=== PATIENT | female | born 1995 | race Caucasian/White ===

== ENCOUNTER → 2018-01-10 09:28 | Outpatient (REF) | payer OTHER, SELFPAY | LOC: LAB 09:28 | PROVIDERS: Visit Provider Nurse Practitioner Family | DX: R10.30 Lower abdominal pain, unspecified (principal); R30.0 Dysuria; M54.5 Low back pain; N92.6 Irregular menstruation, unspecified | CPT/HCPCS: 87077; 87086; 87088 ==

== ENCOUNTER 2019-11-29 21:04 | Emergency (ER) | payer OTHER, SELFPAY ==
[2019-11-29 21:06] VITALS: BP 132/75; PULSE 88; RESP 15; TEMP 37.2; O2SAT 99; BMI 29.2
--- NOTE | 2019-11-29 21:19 | CT_ITS ---
PROCEDURE: CT ABDOMEN PELVIS W CON CLINICAL INDICATION: LLQ pain Left lower quadrant pain, cramping COMPARISON: ABDPELWO CT abdomen pelvis wo con from 04/24/2018 TECHNIQUE: IV Contrast: 75ML OPTIRAY 350 Oral Contrast none Axial images obtained with sagittal and coronal reformats. All CT scans at the facility use one or more dose reduction, viz: automated exposure control, ma/kV adjustment per patient size (including targeted exams where dose is matched to indication, i.e. head), or iterative reconstruction technique. FINDINGS: LOWER THORAX: No acute finding ABDOMEN & PELVIS: The liver has an unremarkable appearance. Focal fatty infiltration noted along the falciform ligament region. The spleen, adrenal glands, pancreas, and kidneys have an unremarkable appearance. No renal or ureteral calculi. No intestinal obstruction or free air. There is a small supraumbilical hernia containing fat. No evidence of appendicitis. There is some minimal stranding of the fat lateral to the mid aspect of the descending colon which could be seen with epiploic appendagitis best detected on series 3, image 71. No pelvic mass. Small amount fluid is present in the pelvis. Small bone islands noted in the intertrochanteric region of the left femur. No acute bony findings are evident. IMPRESSION: 1. Focal stranding of the a fat in the left pericolic region of the descending colon suggesting epiploic appendagitis 2. Small supraumbilical hernia containing fat Dictated by: Fahad Capellan MD 11/30/2019 11:28 Electronically signed by Fahad Capellan MD in [place] 11/30/2019 11:28
[2019-11-29 21:35] LABS: Microscopic, Urine URINE MICROSCOPIC (MICROSCOPIC)
[2019-11-29 21:40] LABS: Appearance,Urine CLEAR (Clear); Basophils # 0.1 K/mm3 (0-0.2); Basophils % 1.2 % (0.1-2.0); Bilirubin,Urine Negative (Negative); Blood, Urine Negative (Negative); Color,Urine YELLOW (Yellow); Eosinophils # 0.2 K/mm3 (0.0-0.4); Eosinophils % 2.3 % (0.1-12.0); Glucose,Urine (UA) Negative (Negative); Hematocrit 40.5 % (37.0-47.0); Hemoglobin 13.2 g/dL (12.2-16.2); Ketones,Urine Negative (Negative); Leukocyte Esterase,Urine Negative (Negative); Lymphocytes % 29.1 % (10-50); Mean Corpuscular HGB Conc 32.6 g/dL (31.8-35.4); Mean Corpuscular Hemoglobin 27.9 pg (27.0-31.2); Mean Corpuscular Volume 85.5 fl (81-99); Mean Platelet Volume 7.3 fl (7.4-10.4); Monocytes # 0.4 K/mm3 (0.1-1.0); Monocytes % 5.8 % (1.7-9.3); Neutrophils # 4.3 K/mm3 (1.8-7.8); Neutrophils % 61.6 % (37.0-80.0); Nitrate,Urine Negative (Negative); Platelet Count 326 K/mm3 (142-424); Protein,Urine Negative (Negative); Red Blood Count 4.73 M/mm3 (4.20-5.40); Red Cell Distribution Width 14.9 % (11.5-17.5); Urobilinogen,Urine 0.2 EU/dl (0.2)
[2019-11-29 21:42] LABS: Urine Pregnancy, HCG Qual. Negative (Negative)
[2019-11-29 21:43] LABS: Squamous Epithelial Cell,Urine 20-50 #/hpf (0-5); WBC,Urine Occasional #/hpf (0-3)
[2019-11-29 21:46] LABS: Alanine Aminotransferase 25 U/L (12-78); Albumin Level 4.8 g/dl (3.5-5.0); Albumin/Globulin Ratio 1.3 (1.1-1.8); Alkaline Phosphatase 92 U/L (38-126); Anion Gap 12.6 mEq/L (5-15); Aspartate Amino Transferase 31 U/L (14-36); Bilirubin,Total 0.3 mg/dl (0.2-1.3); Blood Urea Nitrogen 8 mg/dl (7-17); Calcium 9.7 mg/dl (8.4-10.2); Carbon Dioxide 28 mmol/L (22.0-30.0); Chloride 102 mmol/L (98-107); Creatinine Clearance Estimated 118 mL/min (50-200); Estimated Glomerular Filt Rate 90 ml/min (>60); GFR (African American) 109 ML/MIN (>60); Globulin 3.7 g/dL (1.3-3.2); Glucose 86 mg/dl (74-100); Potassium 3.6 mmoL/L (3.5-5.1); Sodium 139 mmol/L (136-145); Total Protein,Serum 8.5 g/dl (6.3-8.2)
[2019-11-29 21:47] LABS: Amylase 92 U/L (30-110); Lipase 86 U/L (23-300)
--- NOTE | 2019-11-29 21:52 | HMH.EDNVD ---
ED Disposition Clinical Impression: Epiploic appendagitis Disposition: Home, Self-Care Condition on Discharge: Good Instructions: DI for Acute Abdomen Additional Instructions: use motrin and see pcp for follow up Referrals: Blair Smalls MD [Primary Care Provider] - - Critical Care Critical Care Time: No Attestation: On 11/29/19, the high probability of a clinically significant, sudden or life threatening deterioration of the following system(s) required my full and direct attention, intervention and personal management. The time I documented below is in addition to time spent performing reported procedures but includes the following listed in this critical care notation. Medical Decision Making - Medical Records Medical records reviewed: Yes: I reviewed the patient's medical records. - Sunny Inquiry Pt receiving controlled substance: No Vital Signs: 11/29/19 21:06 Temperature 98.9 F Temperature Source Oral Pulse Rate [Left Radial] 88 Respiratory Rate 15 Blood Pressure [Right Arm] 132/75 Blood Pressure Mean [Right Arm] 94 Blood Pressure Source [Right Arm] Automatic Cuff Blood Pressure Position [Right Arm] Sitting 02 Sat by Pulse Oximetry 99 Oxygen Delivery Method Room Air - Lab Data Lab results reviewed: Yes: I reviewed the patient's lab results. Lab Results 11/29/19 21:30: Urine Color Yellow, Urine Appearance Clear, Urine pH 6.0, Ur Specific [place] 1.010, Urine Protein Negative, Urine Glucose (UA) Negative, Urine Ketones Negative, Urine Blood Negative, Urine Nitrate Negative, Urine Bilirubin Negative, Urine Urobilinogen 0.2, Ur Leukocyte Esterase Negative, Urine WBC Occasional, Ur Squamous Epith Cells 20-50 11/29/19 21:30: Urine HCG, Qual Negative 11/29/19 21:30: Amylase 92, Lipase 86 11/29/19 21:30: WBC 7.0, RBC 4.73, Hgb 13.2, Hct 40.5, MCV 85.5, MCH 27.9, MCHC 32.6, RDW 14.9, Plt Count 326, MPV 7.3 L, Neut % (Auto) 61.6, Lymph % (Auto) 29.1, [place] % (Auto) 5.8, Eos % (Auto) 2.3, Baso % (Auto) 1.2, Neut # (Auto) 4.3, Lymph # (Auto) 2.0, [place] # (Auto) 0.4, Eos # (Auto) 0.2, Baso # (Auto) 0.1 11/29/19 21:30: Sodium 139, Potassium 3.6, Chloride 102, Carbon Dioxide 28, Anion Gap 12.6, BUN 8, Creatinine 0.80, Estimated Creat Clear 118, Estimated GFR 90, Est GFR ( Amer) 109, Glucose 86, Calcium 9.7, Total Bilirubin 0.3, AST 31, ALT 25, Alkaline Phosphatase 92, Total Protein 8.5 H, Albumin 4.8, Globulin 3.7 H, Albumin/Globulin Ratio 1.3 Result diagrams: 11/29/19 21:30 11/29/19 21:30 Orders (Tests/Meds): ED MEDICATIONS Generic Name Dose Route Start Last Admin Trade Name Freq PRN Reason Stop Dose Admin Sodium Chloride 1,000 mls @ 999 mls/hr 11/29/19 21:30 11/29/19 21:36 Sod Chlor 0.9% 1000ml Bag IV 11/29/19 22:30 999 mls/hr .Q1H1M IVET Administration Discontinued Medications Generic Name Dose Route Start Last Admin Trade Name Freq PRN Reason Stop Dose Admin Ioversol 75 ml 11/29/19 23:39 11/29/19 23:40 Rad-Optiray 350 100ml Vial IV 11/29/19 23:40 75 ml ONCE ONE Administration Protocol Ketorolac Tromethamine 30 mg 11/29/19 21:19 11/29/19 22:02 Toradol 30mg/Ml Vial IV 11/29/19 21:20 30 mg ONCE ONE Administration Morphine Sulfate 4 mg 11/29/19 23:13 11/29/19 23:14 Morphine 4mg/Ml Syringe IV 11/29/19 23:14 4 mg ONCE ONE Administration Ondansetron HCl 4 mg 11/29/19 21:19 11/29/19 22:02 Zofran 4mg/2ml Vial IV 11/29/19 21:20 4 mg ONCE ONE Administration Sodium Chloride 10 ml 11/29/19 23:39 11/29/19 23:40 Rad-Saline Flush 10ml Syringe IV 11/29/19 23:40 10 ml ONCE ONE Administration ORDERS Category Date Time Status CT abdomen pelvis w con Stat Cat Scan 11/29/19 21:19 Taken - CT Data CT Scan: Abdomen, Pelvis Time Received: 00:[address] Reviewed: Yes: I have viewed the radiologist's interpretation Preliminary Findings: Abnormal (see report ) - Reevaluation(s) Time: 00:08 Reevaluation #1: nonspe
[2019-11-30 00:26] VITALS: BP 136/74; PULSE 82; RESP 14; TEMP 37.2; O2SAT 97
== END 2019-11-30 00:29 | disposition home or self-care (01) ==
PROVIDERS: Emergency Provider Emergency Medicine; PCP Emergency Medicine
DX: K52.9 Noninfective gastroenteritis and colitis, unspecified (principal); F17.290 Nicotine dependence, other tobacco product, uncomplicated
CPT/HCPCS: 74177; 80053; 81001; 81025; 82150; 83690; 85025; 96365; 96375; 99283; J2405; Q9967

== ENCOUNTER → 2020-05-18 18:53 | Outpatient (CLI) | payer OTHER, SELFPAY ==
[2020-05-18 19:03] LABS: Basophils # 0.1 K/mm3 (0-0.2); Basophils % 1.1 % (0.1-2.0); Eosinophils # 0.1 K/mm3 (0.0-0.4); Eosinophils % 1.7 % (0.1-12.0); Hematocrit 42.8 % (37.0-47.0); Hemoglobin 13.9 g/dL (12.2-16.2); Lymphocytes % 32.5 % (10-50); Mean Corpuscular HGB Conc 32.5 g/dL (31.8-35.4); Mean Corpuscular Hemoglobin 28.8 pg (27.0-31.2); Mean Corpuscular Volume 88.7 fl (81-99); Mean Platelet Volume 8.2 fl (7.4-10.4); Monocytes # 0.5 K/mm3 (0.1-1.0); Monocytes % 7.6 % (1.7-9.3); Neutrophils # 3.5 K/mm3 (1.8-7.8); Neutrophils % 57.1 % (37.0-80.0); Platelet Count 377 K/mm3 (142-424); Red Blood Count 4.82 M/mm3 (4.20-5.40); Red Cell Distribution Width 13.2 % (11.5-17.5); White Blood Count 6.1 K/mm3 (4.8-10.8)
[2020-05-18 19:10] LABS: Alanine Aminotransferase 22 U/L (12-78); Albumin Level 4.5 g/dl (3.5-5.0); Albumin/Globulin Ratio 1.4 (1.1-1.8); Alkaline Phosphatase 96 U/L (38-126); Anion Gap 14.2 mEq/L (5-15); Aspartate Amino Transferase 29 U/L (14-36); Bilirubin,Total 0.5 mg/dl (0.2-1.3); Blood Urea Nitrogen 9 mg/dl (7-17); Calcium 9.7 mg/dl (8.4-10.2); Carbon Dioxide 24 mmol/L (22.0-30.0); Chloride 104 mmol/L (98-107); Chol/HDL Ratio 4.1 (1-3.5); Cholesterol 223 mg/dl (140-200); Estimated Glomerular Filt Rate 104 ml/min (>60); GFR (African American) 125 ML/MIN (>60); Globulin 3.3 g/dL (1.3-3.2); Glucose 89 mg/dl (74-100); HDL Cholesterol 55 mg/dl (40-60); Potassium 4.2 mmoL/L (3.5-5.1); Sodium 138 mmol/L (136-145); Total Protein,Serum 7.8 g/dl (6.3-8.2); Triglycerides 128 mg/dl (30-150); VLDL Cholesterol 26 mg/dL (0-40)
[2020-05-18 19:21] LABS: Direct LDL Cholesterol 143.31 mg/dL (100-129)
[2020-05-18 19:29] LABS: T4 (Thyroxine) 5.8 ug/dl (5.53-11.0)
[2020-05-18 19:42] LABS: Thyroid Stimulating Hormone 0.89 uIU/mL (0.465-4.68)
== END ==
PROVIDERS: Visit Provider Physician Assistant
DX: F41.9 Anxiety disorder, unspecified (principal)
CPT/HCPCS: 80053; 80061; 84436; 84443; 85025

== ENCOUNTER 2020-08-01 14:42 | Emergency (ER) | payer OTHER, SELFPAY ==
[2020-08-01 15:10] VITALS: BP 131/89; PULSE 89; RESP 19; TEMP 36.6; O2SAT 99; BMI 31.2
--- NOTE | 2020-08-01 15:39 | HMH.EDUTC ---
[facility] [place] Disposition Clinical Impression: Bronchitis Sinusitis Qualifiers: Sinusitis location: unspecified location Chronicity: unspecified Qualified Code(s): J32.9 - Chronic sinusitis, unspecified Disposition: Home, Self-Care Condition on Discharge: Good Instructions: Sinusitis, DI for Sinusitis, Acute Bronchitis Additional Instructions: ? Start antibiotic today. Be sure to complete entire prescription even if feeling better ? Monitor temp. Tylenol every 4 hours as needed and / or ibuprofen every 6 hours as needed ( As long as your primary care physician has told you that it ok to take both. For fever/aches/pains ER if no less than 101 despite Tylenol or Motrin ? Humidifier/vaporizer or hot steamy shower ? Mucinex during the day for your cough and cough suppressant only at night. Be sure to drink lots of water. Insurance may not cover a prescriptions for mucinex. Might be cheaper to get 400mg tablets and take 2 tablet in the morning, mid-day and evening with lots of water. *Start steroid today. Helps with inflammation therefore, cough and wheezing. Follow directions on the package. Reviewed side effects. Patient reports taking them before. Follow up IMMEDIATELY for new or worsening of symptoms OR no noticeable improvement over the next 48-72 hours. 911 immediately for any life threatening symptoms such as chest pain or difficulty breathing Prescriptions: methylPREDNISolone [Medrol 4mg tab] 4 mg PO DIRECTED #21 tab Transmission Status: Pending to [id number] Azithromycin [Z-Lenny 250mg Tab] 250 mg PO DIRECTED #6 tab Transmission Status: Pending to [facility] Referrals: Blair Smalls MD [Primary Care Provider] - As needed Time of Disposition: 15:47 Medical Decision Making - Sunny Inquiry Pt receiving controlled substance: No Sunny was queried for this patient: No Vital Signs: 08/01/20 15:10 Temperature 97.8 F Temperature Source Oral Pulse Rate [Right Brachial] 89 Respiratory Rate 19 Blood Pressure [Right Arm] 131/89 Blood Pressure Mean [Right Arm] 103 Blood Pressure Source [Right Arm] Automatic Cuff Blood Pressure Position [Right Arm] Sitting 02 Sat by Pulse Oximetry 99 Oxygen Delivery Method Room Air - Lab Data Lab results reviewed: Yes: I reviewed the patient's lab results. [facility] [place] HPI - General Stated complaint: sinus pressure,cough,congestion Time Seen by Provider: 08/01/20 15:39 Mode of Arrival: Ambulatory Source of Information: Patient Limitations: No Limitations Description of Symptoms (Recalled from Triage Doc. by RN): PATIENT C/O COUGH, CHEST CONGESTION, BODY ACHES, EAR AND SINUS PRESSURE X 2 DAYS HEENT Symptoms (Recalled from RN notes): Yes Resp Symptoms (Recalled from RN notes): Yes Skin Symptoms (Recalled from RN notes): No MS Symptoms (Recalled from RN notes): No Functional Status (Recalled from RN notes): WNL - History of Present Illness Provider Complaint: Patient state that she has been having sinus pain/pressure and pressure like feeling in her ears states that she feels like it is trying to move into her chest area States that she was tested for COVID over the weekend due to symptoms and test was negative so today after she was still feeling bad she came in to get checked - Related Data Home Medications Medication Instructions Recorded Confirmed Duloxetine HCl [Cymbalta] 60 mg PO DAILY 08/01/20 08/01/20 Previous Rx's Medication Instructions Recorded Azithromycin [Z-Lenny 250mg Tab] 250 mg PO DIRECTED #6 tab 08/01/20 methylPREDNISolone [Medrol 4mg 4 mg PO DIRECTED #21 tab 08/01/20 tab] Allergies Allergy/AdvReac Type Severity Reaction Status Date / Time No Known Allergies Allergy Verified 06/15/20 14:39 - Worker's Comp Is this a Worker's Comp case?: No [facility] History - Hepatitis A Screen Drug use history?: No High risk sexual behaviors?: No History of sexually transmitted infection?: No Currently employed?: N
[2020-08-01 15:49] VITALS: BP 131/89; PULSE 89; RESP 19; TEMP 36.6; O2SAT 99
[2020-08-01 21:14] LABS: UTC Pregnancy Test, Urine Negative (Negative)
== END 2020-08-01 15:50 | disposition home or self-care (01) ==
PROVIDERS: Emergency Provider Nurse Practitioner; PCP Emergency Medicine
DX: J20.9 Acute bronchitis, unspecified (principal); J32.9 Chronic sinusitis, unspecified; F41.8 Other specified anxiety disorders; F17.290 Nicotine dependence, other tobacco product, uncomplicated; Z79.899 Other long term (current) drug therapy
CPT/HCPCS: 81025; 99202; G0463

== ENCOUNTER 2020-08-13 02:08 | Emergency (ER) | payer OTHER, SELFPAY ==
[2020-08-13 02:09] VITALS: BP 138/62; PULSE 101; RESP 18; O2SAT 99; BMI 25.0
--- NOTE | 2020-08-13 02:10 | HMH.EDGENADL ---
ED Disposition Clinical Impression: Hypokalemia, Palpitations, Anxiety Disposition: Home, Self-Care Condition on Discharge: Good Additional Instructions: Take prescribed oral potassium over the next several days. Follow a normal diet. Continue taking fluoxetine as prescribed for anxiety. Please follow-up with your primary care doctor as further testing may be indicated, such as an event monitor, for intermittent palpitations. Return if recurrent palpitations, chest pain, lightheadedness, other new concerning symptoms. Prescriptions: Potassium Chloride 20 meq PO DAILY 3 Days #3 tablet.er Transmission Status: Pending to [id number] Referrals: Blair Smalls MD [Primary Care Provider] - - Critical Care Critical Care Time: No Attestation: On , the high probability of a clinically significant, sudden or life threatening deterioration of the following system(s) required my full and direct attention, intervention and personal management. The time I documented below is in addition to time spent performing reported procedures but includes the following listed in this critical care notation. Medical Decision Making - Medical Records Medical records reviewed: Yes: I reviewed the patient's medical records. - Sunny Inquiry Pt receiving controlled substance: No Vital Signs: 08/13/20 02:09 Pulse Rate [Left Brachial] 101 H Respiratory Rate 18 Blood Pressure [Left Arm] 138/62 Blood Pressure Mean [Left Arm] 87 02 Sat by Pulse Oximetry 99 Oxygen Delivery Method Room Air - Lab Data Lab Results 08/13/20 02:15: Urine HCG, Qual Negative 08/13/20 02:15: Urine Opiates Screen Negative, Urine Methadone Screen Negative, Ur Barbituates Screen Negative, Ur Phencyclidine Scrn Negative, Ur Amphetamines Screen Negative, U Benzodiazepines Scrn Negative, Urine Cocaine Screen Negative, U Marijuana (THC) Screen Negative 08/13/20 02:25: WBC 12.9 H, RBC 4.44, Hgb 13.0, Hct 38.9, MCV 87.7, MCH 29.3, MCHC 33.5, RDW 13.7, Plt Count 373, MPV 7.1 L, Neut % (Auto) 67.5, Lymph % (Auto) 25.8, [place] % (Auto) 4.5, Eos % (Auto) 1.6, Baso % (Auto) 0.7, Neut # (Auto) 8.7 H, Lymph # (Auto) 3.3, [place] # (Auto) 0.6, Eos # (Auto) 0.2, Baso # (Auto) 0.1 08/13/20 02:25: Sodium 136, Potassium 3.1 L, Chloride 103, Carbon Dioxide 24, Anion Gap 12.1, BUN 9, Creatinine 0.70, Estimated Creat Clear 134, Estimated GFR 104, Est GFR ( Amer) 125, Glucose 121 H, Calcium 9.6, Magnesium 1.8, Total Bilirubin 0.4, AST 24, ALT 29, Alkaline Phosphatase 103, Troponin I < 0.01, Total Protein 7.7, Albumin 4.4, Globulin 3.3 H, Albumin/Globulin Ratio 1.3, TSH 2.56 Result diagrams: 08/13/20 02:25 08/13/20 02:25 Orders (Tests/Meds): ED MEDICATIONS Discontinued Medications Generic Name Dose Route Start Last Admin Trade Name Freq PRN Reason Stop Dose Admin Lorazepam 1 mg 08/13/20 02:23 08/13/20 02:50 Lorazepam 1mg Tablet PO 08/13/20 02:24 1 mg ONCE ONE Administration Potassium Chloride 40 meq 08/13/20 03:22 08/13/20 03:23 Potassium Chloride 20meq Tab PO 08/13/20 03:23 40 meq ONCE ONE Administration ORDERS Category Date Time Status Chest XR -- portable [XR chest portable] Stat Exams 08/13/20 02:18 Taken Troponin I Q3H Lab 08/13/20 05:30 Ordered Troponin I Q3H Lab 08/13/20 08:30 Ordered - ECG Data Tracing #1 I reviewed this ECG and interpreted as documented below: EKG demonstrates sinus rhythm at a rate of 82 bpm; no delta wave; no LVH; QTC 453 ms; [place] normal Medical Decision Narrative: Patient 25-year-old female present with palpitations, anxiety. On arrival, hemodynamically stable with heart rate in the 90s. EKG without any dysrhythmia or other acute findings. Bedside ultrasound also demonstrates lung sliding without other acute findings seen with pneumothorax. Chest x-ray currently pending. Other differential diagnoses include anxiety versus anemia versus endocrinopathy versus toxin versus v
--- NOTE | 2020-08-13 02:18 | XR_ITS ---
PROCEDURE: XR CHEST PORTABLE Referring Doctor: Dinesh Murray Patient Age:25Y CLINICAL HISTORY: chest pain. Palpitations smoker Feels like heart being faster every other be short of breath COMPARISON: CT CT ABDOMEN PELVIS W CON from 11/29/2019 FINDINGS: AP portable CXR performed today Less than optimal inspiration in this young patient with diaphragm only down to the anterior 4th rib but this does slightly crowded markings the left base account for appearance here but however I see no convincing acute findings no focal pneumonia. No pulmonary mass nor lesion evident.. No pneumothorax, no pleural effusion. The heart is normal in size, sean and mediastinal structures satisfactory. Chest wall unremarkable .. No acute bony abnormalities. IMPRESSION: No acute findings. Suboptimal inspiration but lungs appear clear, with nothing definitely acute Dictated by: Chau Valenzuela MD 08/13/2020 17:07 Chau Valenzuela MD in [place] 08/13/2020 17:07
--- NOTE | 2020-08-13 02:24 | ECG_ITS ---
APPROVED REPORT Exam: Resting ECG HR:82 bpm ECG Measurements Heart Rate 82 AXES TX 104 P 46 QRSd 74 QRS 51 QT 388 T 35 QTc 453 Conclusion Sinus rhythm with short TX Otherwise normal ECG Electronically signed by : Raymond Canela, 08/15/2020 19:43:14
[2020-08-13 02:46] LABS: Urine Pregnancy, HCG Qual. Negative (Negative)
[2020-08-13 02:47] LABS: Basophils # 0.1 K/mm3 (0-0.2); Basophils % 0.7 % (0.1-2.0); Chloride 103 mmol/L (98-107); Eosinophils # 0.2 K/mm3 (0.0-0.4); Eosinophils % 1.6 % (0.1-12.0); Hematocrit 38.9 % (37.0-47.0); Lymphocytes # 3.3 K/mm3 (0.7-4.5); Lymphocytes % 25.8 % (10-50); Mean Corpuscular HGB Conc 33.5 g/dL (31.8-35.4); Mean Corpuscular Hemoglobin 29.3 pg (27.0-31.2); Mean Corpuscular Volume 87.7 fl (81-99); Mean Platelet Volume 7.1 fl (7.4-10.4); Monocytes # 0.6 K/mm3 (0.1-1.0); Monocytes % 4.5 % (1.7-9.3); Neutrophils # 8.7 K/mm3 (1.8-7.8); Neutrophils % 67.5 % (37.0-80.0); Platelet Count 373 K/mm3 (142-424); Potassium 3.1 mmoL/L (3.5-5.1); Red Blood Count 4.44 M/mm3 (4.20-5.40); Red Cell Distribution Width 13.7 % (11.5-17.5); Sodium 136 mmol/L (136-145); White Blood Count 12.9 K/mm3 (4.8-10.8)
[2020-08-13 02:50] LABS: Alanine Aminotransferase 29 U/L (12-78); Albumin Level 4.4 g/dl (3.5-5.0); Albumin/Globulin Ratio 1.3 (1.1-1.8); Alkaline Phosphatase 103 U/L (38-126); Anion Gap 12.1 mEq/L (5-15); Aspartate Amino Transferase 24 U/L (14-36); Bilirubin,Total 0.4 mg/dl (0.2-1.3); Blood Urea Nitrogen 9 mg/dl (7-17); Calcium 9.6 mg/dl (8.4-10.2); Carbon Dioxide 24 mmol/L (22.0-30.0); Creatinine Clearance Estimated 134 mL/min (50-200); Estimated Glomerular Filt Rate 104 ml/min (>60); GFR (African American) 125 ML/MIN (>60); Globulin 3.3 g/dL (1.3-3.2); Glucose 121 mg/dl (74-100); Magnesium 1.8 mg/dl (1.6-2.3); Total Protein,Serum 7.7 g/dl (6.3-8.2)
[2020-08-13 02:52] LABS: Amphetamine/Metha Screen,Urine Negative ng/ml (<1000); Barbiturates Screen,Urine Negative ng/ml (<200)
[2020-08-13 02:53] LABS: Benzodiazepines Screen,Urine Negative ng/ml (<200); Cannabinoid Screen,Urine Negative ng/ml (<50)
[2020-08-13 02:54] LABS: Cocaine Screen,Urine Negative ng/ml (<300)
[2020-08-13 02:55] LABS: Methadone Screen,Urine Negative ng/ml (<300); Opiate Screen,Urine Negative ng/ml (<300)
[2020-08-13 02:56] LABS: Phencyclidine Screen,Urine Negative ng/ml (<25)
[2020-08-13 03:17] LABS: Troponin I < 0.01 ng/ml (0.00-0.034)
[2020-08-13 03:23] LABS: Thyroid Stimulating Hormone 2.56 uIU/mL (0.465-4.68)
[2020-08-13 03:39] VITALS: BP 111/77; PULSE 87; RESP 16; TEMP 37.1; O2SAT 98
== END 2020-08-13 03:41 | disposition home or self-care (01) ==
PROVIDERS: Emergency Provider Emergency Medicine; PCP Emergency Medicine
DX: F41.9 Anxiety disorder, unspecified (principal); R00.2 Palpitations; E87.6 Hypokalemia; F17.290 Nicotine dependence, other tobacco product, uncomplicated; Z79.899 Other long term (current) drug therapy
CPT/HCPCS: 71045; 80053; 80305; 81025; 83735; 84443; 84484; 85025; 93005; 99283

== ENCOUNTER 2020-11-12 14:54 | Emergency (ER) | payer OTHER, SELFPAY ==
[2020-11-12 14:55] VITALS: BP 123/72; PULSE 98; RESP 18; TEMP 36.9; O2SAT 99; BMI 31.6
--- NOTE | 2020-11-12 15:11 | HMH.EDGENADL ---
ED Disposition Clinical Impression: Asymptomatic bacteriuria, Nausea and vomiting during Disposition: Home, Self-Care Condition on Discharge: Good Instructions: DI for Hyperemesis Gravidarum, DI for Acute Cystitis Additional Instructions: You have been evaluated for nausea and vomiting in . Found to have bacteria in your urine. Please take Macrobid as prescribed. Take Zofran as needed for nausea. Stay hydrated. Follow-up with your [employer] in 2 to 3 days for symptom recheck. Return to the emergency department at once if you have any new or worsening symptoms, vomiting, contractions, other concerns. Prescriptions: nitrofurantoin macrocrystaL [Macrodantin 100mg capsule] 100 mg PO BID #10 cap Transmission Status: Pending to [facility] Referrals: Shaista Silva PA [Primary Care Provider] - Time of Disposition: 15:41 - Critical Care Critical Care Time: No Attestation: On , the high probability of a clinically significant, sudden or life threatening deterioration of the following system(s) required my full and direct attention, intervention and personal management. The time I documented below is in addition to time spent performing reported procedures but includes the following listed in this critical care notation. Medical Decision Making - Medical Records Medical records reviewed: Yes: I reviewed the patient's medical records. - Sunny Inquiry Pt receiving controlled substance: No Vital Signs: 11/12/20 14:55 11/12/20 15:30 Temperature 98.5 F Temperature Source Oral Pulse Rate 88 Pulse Rate [Left Radial] 98 H Respiratory Rate 18 Blood Pressure 118/74 Blood Pressure [Right Arm] 123/72 Blood Pressure Mean 86 Blood Pressure Mean [Right Arm] 89 Blood Pressure Source [Right Arm] Automatic Cuff Blood Pressure Position [Right Arm] Sitting 02 Sat by Pulse Oximetry 99 99 Oxygen Delivery Method Room Air - Lab Data Lab Results 11/12/20 15:07: Urine Color Yellow, Urine Appearance Sl cloudy, Urine pH 8.0, Ur Specific [place] 1.020, Urine Protein Negative, Urine Glucose (UA) Negative, Urine Ketones Negative, Urine Blood Negative, Urine Nitrate Negative, Urine Bilirubin Negative, Urine Urobilinogen 1.0, Ur Leukocyte Esterase 1+ A, Urine RBC None, Urine WBC 5-10, Ur Squamous Epith Cells 10-20, Amorphous Sediment 3+, Urine Bacteria None 11/12/20 15:15: WBC 9.0, RBC 4.12 L, Hgb 12.4, Hct 36.2 L, MCV 87.9, MCH 30.1, MCHC 34.2, RDW 13.4, Plt Count 262, MPV 7.4, Neut % (Auto) 76.7, Lymph % (Auto) 15.0, [place] % (Auto) 7.0, Eos % (Auto) 0.8, Baso % (Auto) 0.5, Neut # (Auto) 6.9, Lymph # (Auto) 1.4, [place] # (Auto) 0.6, Eos # (Auto) 0.1, Baso # (Auto) 0.0 11/12/20 15:15: Sodium 136, Potassium 3.5, Chloride 105, Carbon Dioxide 23, Anion Gap 11.5, BUN 4 L, Creatinine 0.50 L, Estimated Creat Clear 203, Estimated GFR 153, Est GFR ( Amer) 185, Total Bilirubin 0.3, AST 27, ALT 22, Alkaline Phosphatase 67, Total Protein 7.0, Albumin 3.9, Globulin 3.1, Albumin/Globulin Ratio 1.3 Result diagrams: 11/12/20 15:15 11/12/20 15:15 Orders (Tests/Meds): ED MEDICATIONS Generic Name Dose Route Start Last Admin Trade Name Freq PRN Reason Stop Dose Admin Sodium Chloride 1,000 mls @ 999 mls/hr 11/12/20 15:30 11/12/20 15:29 Sod Chlor 0.9% 1000ml Bag IV 11/12/20 16:30 999 mls/hr .Q1H1M IVET Administration Discontinued Medications Generic Name Dose Route Start Last Admin Trade Name Freq PRN Reason Stop Dose Admin Sodium Chloride 1,000 mls @ 999 mls/hr 11/12/20 15:15 Sod Chlor 0.9% 1000ml Bag IV 11/12/20 16:15 .Q1H1M IVET Ondansetron HCl 4 mg 11/12/20 15:28 11/12/20 15:29 Ondansetron 4mg/2ml Vial IV 11/12/20 15:29 4 mg ONCE ONE Administration ORDERS Category Date Time Status CMP [Comprehensive Metabolic Panel] Stat Lab 11/12/20 15:15 Results Urine Culture Stat Micro 11/12/20 15:07 Received Medical Decision Narrative: In summary this i
[2020-11-12 15:12] LABS: Microscopic, Urine URINE MICROSCOPIC (MICROSCOPIC)
[2020-11-12 15:14] LABS: Appearance,Urine SL CLOUDY (Clear); Bilirubin,Urine Negative (Negative); Blood, Urine Negative (Negative); Color,Urine YELLOW (Yellow); Glucose,Urine (UA) Negative (Negative); Ketones,Urine Negative (Negative); Leukocyte Esterase,Urine 1+ (Negative); Nitrate,Urine Negative (Negative); Protein,Urine Negative (Negative)
[2020-11-12 15:23] LABS: Amorphous Sediment,Urine 3+ /lpf
[2020-11-12 15:30] VITALS: BP 118/74; PULSE 88; O2SAT 99
[2020-11-12 15:33] LABS: Basophils % 0.5 % (0.1-2.0); Eosinophils # 0.1 K/mm3 (0.0-0.4); Eosinophils % 0.8 % (0.1-12.0); Hematocrit 36.2 % (37.0-47.0); Hemoglobin 12.4 g/dL (12.2-16.2); Lymphocytes # 1.4 K/mm3 (0.7-4.5); Mean Corpuscular HGB Conc 34.2 g/dL (31.8-35.4); Mean Corpuscular Hemoglobin 30.1 pg (27.0-31.2); Mean Corpuscular Volume 87.9 fl (81-99); Mean Platelet Volume 7.4 fl (7.4-10.4); Monocytes # 0.6 K/mm3 (0.1-1.0); Neutrophils # 6.9 K/mm3 (1.8-7.8); Neutrophils % 76.7 % (37.0-80.0); Platelet Count 262 K/mm3 (142-424); Red Blood Count 4.12 M/mm3 (4.20-5.40); Red Cell Distribution Width 13.4 % (11.5-17.5)
[2020-11-12 15:37] LABS: Chloride 105 mmol/L (98-107); Potassium 3.5 mmoL/L (3.5-5.1); Sodium 136 mmol/L (136-145)
[2020-11-12 15:39] LABS: Blood Urea Nitrogen 4 mg/dl (7-17); Creatinine Clearance Estimated 203 mL/min (50-200); Estimated Glomerular Filt Rate 153 ml/min (>60); GFR (African American) 185 ML/MIN (>60)
[2020-11-12 15:40] LABS: Alanine Aminotransferase 22 U/L (12-78); Albumin Level 3.9 g/dl (3.5-5.0); Albumin/Globulin Ratio 1.3 (1.1-1.8); Alkaline Phosphatase 67 U/L (38-126); Anion Gap 11.5 mEq/L (5-15); Aspartate Amino Transferase 27 U/L (14-36); Bilirubin,Total 0.3 mg/dl (0.2-1.3); Calcium 8.7 mg/dl (8.4-10.2); Carbon Dioxide 23 mmol/L (22.0-30.0); Globulin 3.1 g/dL (1.3-3.2); Glucose 94 mg/dl (74-100)
[2020-11-12 16:48] VITALS: BP 117/66; PULSE 85; RESP 20; TEMP 36.9; O2SAT 99
== END 2020-11-12 16:52 | disposition home or self-care (01) ==
PROVIDERS: Emergency Provider Emergency Medicine; PCP Physician Assistant
DX: O21.9 Vomiting of pregnancy, unspecified (principal); Z3A.13 13 weeks gestation of pregnancy; R82.71 Bacteriuria
CPT/HCPCS: 80053; 81001; 85025; 87086; 96365; 96375; 99282; J2405

== ENCOUNTER 2020-12-20 09:45 | Emergency (ER) | payer OTHER, SELFPAY ==
[2020-12-20 09:47] VITALS: BP 121/74; PULSE 80; RESP 18; TEMP 36.5; O2SAT 99; BMI 31.2
--- NOTE | 2020-12-20 10:05 | HMH.EDGENADL ---
ED Disposition Clinical Impression: 19 weeks gestation of Low back pain Qualifiers: Chronicity: acute Back pain laterality: midline Sciatica presence: without sciatica Qualified Code(s): M54.5 - Low back pain Disposition: Home, Self-Care Condition on Discharge: Good Instructions: DI for Low Back Pain Additional Instructions: Tylenol for pain. Follow-up with your [employer] tomorrow as scheduled. Return the emergency department if severe pain valle new symptoms such as fever, vomiting, or vaginal bleeding. Referrals: Blair Smalls MD [Primary Care Provider] - Forms: Work/School Release - Critical Care Critical Care Time: No Attestation: On 12/20/20, the high probability of a clinically significant, sudden or life threatening deterioration of the following system(s) required my full and direct attention, intervention and personal management. The time I documented below is in addition to time spent performing reported procedures but includes the following listed in this critical care notation. Medical Decision Making - Sunny Inquiry Pt receiving controlled substance: No Vital Signs: 12/20/20 09:47 Temperature 97.7 F Temperature Source Oral Pulse Rate [Right Radial] 80 Respiratory Rate 18 Blood Pressure [Right Arm] 121/74 Blood Pressure Mean [Right Arm] 89 Blood Pressure Source [Right Arm] Automatic Cuff Blood Pressure Position [Right Arm] Sitting 02 Sat by Pulse Oximetry 99 Oxygen Delivery Method Room Air - Lab Data Lab Results 12/20/20 10:06: Urine Color Yellow, Urine Appearance Clear, Urine pH 7.0, Ur Specific [place] 1.020, Urine Protein Negative, Urine Glucose (UA) Negative, Urine Ketones Negative, Urine Blood Negative, Urine Nitrate Negative, Urine Bilirubin Negative, Urine Urobilinogen 0.2, Ur Leukocyte Esterase Negative, Urine RBC 5-10, Urine WBC None, Ur Squamous Epith Cells 3-5, Urine Bacteria None Medical Decision Narrative: Urine analysis is unremarkable. Symptomatically, back pain suggests musculoskeletal origin. I also offered vaginal examination to check her cervix to make sure she was not dilating and that the back pain did not represent early labor. She declines. Labor and delivery was contacted by nursing staff and they declined to evaluate patient as she is less than 20 weeks. The patient says she has an appointment with her [employer] tomorrow and will follow up then. Advised to return to the emergency department if worsening pain or if any vaginal bleeding or other new symptoms. General Adult HPI - General Stated complaint: back pain, abd pain Time Seen by Provider: 12/20/20 10:05 - History of Present Illness HPI narrative: 19 weeks gestation . 2 para 1. 2-day history of lower back pain coming around to her anterior abdomen. Constant but will worsen for a few hours at a time. No injury recalled. Pain is worsened by bending forward and walking. She says it does not feel like contractions. Her abdominal pain does not feel like contractions. No vaginal bleeding. She is concerned about possibility of a urinary tract infection. Denies dysuria, frequency, fever, vomiting. - Related Data Previous Rx's Medication Instructions Recorded lurasidone 20 mg tablet 20 mg PO DAILY #30 tab 11/14/20 pseudoephedrine HCl 120 mg 120 mg PO Q12H #20 tab 11/14/20 tablet,extended release valacyclovir 1 gram tablet 1,000 mg PO BID #20 tab 12/13/20 Allergies Allergy/AdvReac Type Severity Reaction Status Date / Time No Known Allergies Allergy Verified 11/14/20 14:29 [facility] History - Hepatitis A Screen Attestation statement:: This patient has been screened for Hepatitis A risk factors. I have reviewed the patient's past medical history: Yes Medical History: Reports:: Anxiety, Depression Laterality Cases: Bilateral: Myringotomy (Ear Tubes), Tonsillectomy Other Surgeries: Yes: No Previous Surgery, Amputation: No Fractures: No
[2020-12-20 10:13] LABS: Microscopic, Urine URINE MICROSCOPIC (MICROSCOPIC)
[2020-12-20 10:17] LABS: Appearance,Urine CLEAR (Clear); Bilirubin,Urine Negative (Negative); Blood, Urine Negative (Negative); Color,Urine YELLOW (Yellow); Glucose,Urine (UA) Negative (Negative); Ketones,Urine Negative (Negative); Leukocyte Esterase,Urine Negative (Negative); Nitrate,Urine Negative (Negative); Protein,Urine Negative (Negative); Urobilinogen,Urine 0.2 EU/dl (0.2)
[2020-12-20 11:00] VITALS: BP 124/72; PULSE 74; RESP 18; TEMP 36.6; O2SAT 98
== END 2020-12-20 11:02 | disposition home or self-care (01) ==
PROVIDERS: Emergency Provider Emergency Medicine; PCP Emergency Medicine
DX: M54.5 Low back pain (principal); Z3A.19 19 weeks gestation of pregnancy; F41.8 Other specified anxiety disorders; F17.290 Nicotine dependence, other tobacco product, uncomplicated
CPT/HCPCS: 81001; 99282

== ENCOUNTER 2021-01-10 17:27 | Emergency (ER) | payer OTHER, SELFPAY ==
--- NOTE | 2021-01-10 17:50 | HMH.EDUTC ---
[facility] [place] Clinical Impression: UTI (urinary tract infection) Qualifiers: Urinary tract infection type: site unspecified Hematuria presence: without hematuria Qualified Code(s): N39.0 - Urinary tract infection, site not specified Qualifiers: Weeks of gestation: 22 weeks Qualified Code(s): Z3A.22 - 22 weeks gestation of Disposition: Home, Self-Care Condition on Discharge: Good Instructions: Urinary Tract Infection Additional Instructions: Drink plenty of fluids. Take tylenol for pain or fever. Take the medications as directed. Follow up with your regular doctor. Follow up with your customer care consultant doctor. Please call them and let them know you are being treated for a UTI. GO TO THE ER FOR ANY WORSENING SYMPTOMS Prescriptions: cephALEXin [cephALEXin 500mg capsule] 500 mg PO Q6H 7 Days #28 cap Transmission Status: Received by [facility] Referrals: Blair Smalls MD [Primary Care Provider] - Forms: Work/School Release Time of Disposition: 17:55 Medical Decision Making - Medical Records Medical records reviewed: No: I reviewed the patient's medical records. - Sunny Inquiry Pt receiving controlled substance: No Vital Signs: 01/10/21 17:51 01/10/21 17:56 Temperature 98.3 F 98.3 F Temperature Source Oral Pulse Rate 82 Pulse Rate [Left] 82 Respiratory Rate 17 17 Blood Pressure 120/66 Blood Pressure [Right Arm] 120/66 Blood Pressure Mean [Right Arm] 84 02 Sat by Pulse Oximetry 98 - Lab Data Lab Results 01/10/21 17:55: Urine Color [place], Urine Appearance Slightly cloudy, Urine pH 7.0, Ur Specific [place] 1.020, Urine Protein 2+, Urine Glucose (UA) Negative, Urine Ketones Small, Urine Blood Negative, Urine Nitrate Negative, Urine Bilirubin 1+ A, Urine Urobilinogen 1, Ur Leukocyte Esterase Trace Orders (Tests/Meds): ORDERS Category Date Time Status Urine Culture Stat Micro 01/10/21 17:37 Received [facility] [place] - General Stated complaint: Possible UTI Time Seen by Provider: 01/10/21 17:50 - History of Present Illness Provider Complaint: She states that for the past 1 day she has had burning while urination. She gets uti's every so often and she thinks that is what's going on now. She is 22 weeks . She denies any vaginal bleeding, discharge or abdominal pain. - Related Data Previous Rx's Medication Instructions Recorded lurasidone 20 mg tablet 20 mg PO DAILY #30 tab 11/14/20 pseudoephedrine HCl 120 mg 120 mg PO Q12H #20 tab 11/14/20 tablet,extended release valacyclovir 1 gram tablet 1,000 mg PO BID #20 tab 12/13/20 sertraline 25 mg tablet 25 mg PO DAILY #30 tab 01/05/21 cephALEXin [cephALEXin 500mg 500 mg PO Q6H 7 Days #28 cap 01/10/21 capsule] Allergies Allergy/AdvReac Type Severity Reaction Status Date / Time No Known Allergies Allergy Verified 01/10/21 17:55 [facility] History - Hepatitis A Screen Attestation statement:: This patient has been screened for Hepatitis A risk factors. I have reviewed the patient's past medical history: Yes Medical History: Reports:: Anxiety, Depression Laterality Cases: Bilateral: Myringotomy (Ear Tubes), Tonsillectomy Other Surgeries: Yes: No Previous Surgery, Amputation: No Fractures: No - Social History Smoking Status: Light tobacco smoker Tobacco Type: e-cigarettes # Packs/Day (cigarettes): 1 Alcohol Intake: never Substance Use Type: denies use Occupational Status: employed Housing: house Household Members: family - Psychiatric History Pschychiatric History:: Reports:: Anxiety, Depression Family Hx:: No significant family history ROS Obtained: Yes All systems reviewed & no additional complaints - Constitutional Constitutional: Reports system reviewed and no additional complaints, except as docu - Eyes Eyes: Reports system reviewed and no additional complaints, except as docu - ENT Ears, Nose, Mouth, and Throat: Reports system reviewed and
[2021-01-10 17:51] VITALS: BP 120/66; PULSE 82; RESP 17; TEMP 36.8; O2SAT 98; BMI 28.8
[2021-01-10 17:56] VITALS: BP 120/66; PULSE 82; RESP 17; TEMP 36.8; O2SAT 98
[2021-01-10 18:35] LABS: Apearance,Urine Slightly Cloudy (Clear); Color,Urine Orange (Yellow)
[2021-01-10 18:36] LABS: Glucose,Urine (UA) Negative (Negative); Ketones,Urine SMALL (Negative); Protein,Urine 2+ (Negative)
[2021-01-10 18:37] LABS: Bilirubin,Urine 1+ (Negative); Blood, Urine Negative (Negative); UTC Leukocyte Esterase,Urine Trace (Negative); UTC Nitrate,Urine Negative (Negative); Urobilinogen,Urine 1 EU/dl (0.2)
== END 2021-01-10 18:07 | disposition home or self-care (01) ==
PROVIDERS: Emergency Provider Nurse Practitioner Family; PCP Emergency Medicine
DX: O23.12 Infections of bladder in pregnancy, second trimester (principal); N30.00 Acute cystitis without hematuria; Z3A.22 22 weeks gestation of pregnancy; F41.8 Other specified anxiety disorders; Z79.899 Other long term (current) drug therapy; F17.290 Nicotine dependence, other tobacco product, uncomplicated
CPT/HCPCS: 81003; 87086; 99202; G0463

== ENCOUNTER 2021-01-16 17:21 | Emergency (ER) | payer OTHER, SELFPAY ==
[2021-01-16 17:25] VITALS: BP 111/69; PULSE 91; RESP 17; TEMP 36.9; O2SAT 97; BMI 32.0
[2021-01-16 17:36] LABS: Apearance,Urine Clear (Clear); Color,Urine Yellow (Yellow); Glucose,Urine (UA) Negative (Negative); Ketones,Urine Negative (Negative); PH,Urine 6.5 (5.0-8.5); Protein,Urine Trace (Negative)
[2021-01-16 17:37] LABS: Bilirubin,Urine Negative (Negative); Blood, Urine Negative (Negative); UTC Leukocyte Esterase,Urine Negative (Negative); UTC Nitrate,Urine Negative (Negative); Urobilinogen,Urine 1 EU/dl (0.2)
--- NOTE | 2021-01-16 17:50 | HMH.EDUTC ---
[facility] [place]: Burning with urination Disposition: Home, Self-Care Condition on Discharge: Good Additional Instructions: Make sure to drink plenty of water to help flush out kidneys Finish medication as prescribed Follow up with OBGYN and/or Family Doctor if symptoms continue or worsen Return if needed Straight to ER if any life threatening symptoms Referrals: Blair Smalls MD [Primary Care Provider] - As needed Time of Disposition: 17:55 Medical Decision Making - Sunny Inquiry Pt receiving controlled substance: No Sunny was queried for this patient: No Vital Signs: 01/16/21 17:25 Temperature 98.4 F Temperature Source Oral Pulse Rate [Right Brachial] 91 H Respiratory Rate 17 Blood Pressure [Right Arm] 111/69 Blood Pressure Mean [Right Arm] 83 Blood Pressure Source [Right Arm] Automatic Cuff Blood Pressure Position [Right Arm] Sitting 02 Sat by Pulse Oximetry 97 Oxygen Delivery Method Room Air - Lab Data Lab results reviewed: Yes: I reviewed the patient's lab results. Lab Results 01/16/21 17:24: Urine Color Yellow, Urine Appearance Clear, Urine pH 6.5, Ur Specific [place] 1.030, Urine Protein Trace, Urine Glucose (UA) Negative, Urine Ketones Negative, Urine Blood Negative, Urine Nitrate Negative, Urine Bilirubin Negative, Urine Urobilinogen 1, Ur Leukocyte Esterase Negative [facility] [place] - General Stated complaint: Possible UTI Time Seen by Provider: 01/16/21 17:50 Mode of Arrival: Ambulatory Source of Information: Patient Limitations: No Limitations Description of Symptoms (Recalled from Triage Doc. by RN): PATIENT STATES SHE SEEN IN [facility] LAST SATURDAY AND TREATED FOR UTI; REPORTS HER SYMPTOMS HAVE NOT CLEARED UP HEENT Symptoms (Recalled from RN notes): No Resp Symptoms (Recalled from RN notes): No Skin Symptoms (Recalled from RN notes): No MS Symptoms (Recalled from RN notes): No Functional Status (Recalled from RN notes): WNL - History of Present Illness Provider Complaint: Patient states that she is and has been having burning on and off with urination States that she was seen last week and started on antibiotics States that she finishes them up tomorrow and her culture showed contamination and she was still having some burning on and off but denies discharge and wanted to get urine checked again - Related Data Previous Rx's Medication Instructions Recorded lurasidone 20 mg tablet 20 mg PO DAILY #30 tab 11/14/20 pseudoephedrine HCl 120 mg 120 mg PO Q12H #20 tab 11/14/20 tablet,extended release valacyclovir 1 gram tablet 1,000 mg PO BID #20 tab 12/13/20 sertraline 25 mg tablet 25 mg PO DAILY #30 tab 01/05/21 cephALEXin [cephALEXin 500mg 500 mg PO Q6H 7 Days #28 cap 01/10/21 capsule] Allergies Allergy/AdvReac Type Severity Reaction Status Date / Time No Known Allergies Allergy Verified 01/10/21 17:55 - Worker's Comp Is this a Worker's Comp case?: No [facility] History - Hepatitis A Screen Drug use history?: No High risk sexual behaviors?: No History of sexually transmitted infection?: No Currently employed?: No Childcare worker?: No Do you have indoor plumbing?: Yes Do you have electricity?: Yes Attestation statement:: This patient has been screened for Hepatitis A risk factors. I have reviewed the patient's past medical history: Yes Medical History: Reports:: Anxiety, Depression Laterality Cases: Bilateral: Myringotomy (Ear Tubes), Tonsillectomy Other Surgeries: Yes: No Previous Surgery, Amputation: No Fractures: No - Social History Smoking Status: Never smoker Tobacco Type: e-cigarettes # Packs/Day (cigarettes): 1 Alcohol Intake: never Substance Use Type: denies use Occupational Status: other Housing: house Household Members: family - Psychiatric History Pschychiatric History:: Reports:: Anxiety, Depression Family Hx:: No significant family history ROS Obtained: Yes All systems reviewed & no additional complaints
[2021-01-16 17:58] VITALS: BP 111/69; PULSE 91; RESP 17; TEMP 36.9; O2SAT 97
== END 2021-01-16 18:05 | disposition home or self-care (01) ==
PROVIDERS: Emergency Provider Nurse Practitioner; PCP Emergency Medicine
DX: O23.12 Infections of bladder in pregnancy, second trimester (principal); F41.8 Other specified anxiety disorders
CPT/HCPCS: 81003; 99202; G0463

== ENCOUNTER 2021-02-17 09:29 | Emergency (ER) | payer OTHER, SELFPAY ==
[2021-02-17 09:52] VITALS: BP 120/69; PULSE 91; RESP 20; TEMP 36.9; O2SAT 98; BMI 32.8
--- NOTE | 2021-02-17 10:00 | HMH.EDUTC ---
[facility] [place] Clinical Impression: Low back pain Qualifiers: Chronicity: unspecified Back pain laterality: unspecified Sciatica presence: unspecified whether sciatica present Qualified Code(s): M54.5 - Low back pain Disposition: Home, Self-Care Condition on Discharge: Good Additional Instructions: After leaving the [facility] go to the hotel front office manager to re-register for OB out Go to OB for monitoring Return if needed Straight to ER if any life threatening symptoms Referrals: Blair Smalls MD [Primary Care Provider] - As needed Time of Disposition: 10:12 Medical Decision Making - Sunny Inquiry Pt receiving controlled substance: No Sunny was queried for this patient: No Vital Signs: 02/17/21 09:52 02/17/21 10:16 Temperature 98.4 F 98.4 F Temperature Source Oral Pulse Rate 91 H Pulse Rate [Right Radial] 91 H Respiratory Rate 20 20 Blood Pressure 120/69 Blood Pressure [Right Arm] 120/69 Blood Pressure Mean [Right Arm] 86 Blood Pressure Source [Right Arm] Automatic Cuff Blood Pressure Position [Right Arm] Sitting 02 Sat by Pulse Oximetry 98 Oxygen Delivery Method Room Air - Lab Data Lab results reviewed: Yes: I reviewed the patient's lab results. Lab Results 02/17/21 09:32: Urine Color Yellow, Urine Appearance Clear, Urine pH 6.5, Ur Specific [place] 1.010, Urine Protein Negative, Urine Glucose (UA) Negative, Urine Ketones Negative, Urine Blood Trace, Urine Nitrate Negative, Urine Bilirubin Negative, Urine Urobilinogen 0.2, Ur Leukocyte Esterase Negative Medical Decision Narrative: Spoke with OB and urine clear patient to be sent to floor for evaluation and monitoring Advised patient to be discharged from [facility] and re-register for OB out patient agreed [facility] [place] - General Stated complaint: possible uti Time Seen by Provider: 02/17/21 10:01 Mode of Arrival: Ambulatory Limitations: No Limitations Description of Symptoms (Recalled from Triage Doc. by RN): C/O possible UTI-- frequent urination and lower back pain, sinus pressure HEENT Symptoms (Recalled from RN notes): Yes (Sinus pressure) Resp Symptoms (Recalled from RN notes): No Skin Symptoms (Recalled from RN notes): No MS Symptoms (Recalled from RN notes): No Functional Status (Recalled from RN notes): n/a - History of Present Illness Provider Complaint: Patient states that she woke up this morning with some nasal congestion and took some Zyrtec States thats he is 27wks OB and she has been having Pain in her lower back, cramping in her lower abomen and pressure like feeling in her lower abdomen States that she thinks she may have a UTI and wanted to get checked for UTI - Related Data Previous Rx's Medication Instructions Recorded lurasidone 20 mg tablet 20 mg PO DAILY #30 tab 11/14/20 pseudoephedrine HCl 120 mg 120 mg PO Q12H #20 tab 11/14/20 tablet,extended release valacyclovir 1 gram tablet 1,000 mg PO BID #20 tab 12/13/20 sertraline 25 mg tablet 25 mg PO DAILY #30 tab 01/05/21 cephALEXin [cephALEXin 500mg 500 mg PO Q6H 7 Days #28 cap 01/10/21 capsule] Allergies Allergy/AdvReac Type Severity Reaction Status Date / Time No Known Allergies Allergy Verified 01/10/21 17:55 - Worker's Comp Is this a Worker's Comp case?: No [facility] History - Hepatitis A Screen Drug use history?: No High risk sexual behaviors?: No History of sexually transmitted infection?: No Currently employed?: No Childcare worker?: No Do you have indoor plumbing?: Yes Do you have electricity?: Yes Attestation statement:: This patient has been screened for Hepatitis A risk factors. I have reviewed the patient's past medical history: Yes Medical History: Reports:: Anxiety, Depression Denies:: Diabetes Mellitus Type 1, Diabetes Mellitus Type 2 Laterality Cases: Bilateral: Myringotomy (Ear Tubes), Tonsillectomy Other Surgeries: Yes: No Previous Surgery, Amputation: No Fractures: No - Social History Smoking Status: Never smoker Tobacco
[2021-02-17 10:06] LABS: Apearance,Urine Clear (Clear); Color,Urine Yellow (Yellow); Glucose,Urine (UA) Negative (Negative); Ketones,Urine Negative (Negative); PH,Urine 6.5 (5.0-8.5); Protein,Urine Negative (Negative)
[2021-02-17 10:07] LABS: Bilirubin,Urine Negative (Negative); Blood, Urine Trace (Negative); UTC Leukocyte Esterase,Urine Negative (Negative); UTC Nitrate,Urine Negative (Negative); Urobilinogen,Urine 0.2 EU/dl (0.2)
[2021-02-17 10:16] VITALS: BP 120/69; PULSE 91; RESP 20; TEMP 36.9; O2SAT 98
== END 2021-02-17 10:19 | disposition home or self-care (01) ==
PROVIDERS: Emergency Provider Nurse Practitioner; PCP Emergency Medicine
DX: M54.5 Low back pain (principal); Z3A.27 27 weeks gestation of pregnancy
CPT/HCPCS: 81003; 99202; G0463

== ENCOUNTER 2021-02-17 10:16 | Outpatient (CLI) | payer OTHER, SELFPAY ==
[2021-02-17 10:20] VITALS: BP 116/64; PULSE 105; RESP 18; TEMP 36.7; O2SAT 98; BMI 32.8
== END 2021-02-17 12:55 | disposition home or self-care (01) ==
LOC: OBOUT 10:18 → OB 10:18
PROVIDERS: PCP Emergency Medicine; Visit Provider Obstetrics & Gynecology
DX: O26.892 Other specified pregnancy related conditions, second trimester (principal); Z3A.27 27 weeks gestation of pregnancy; M54.9 Dorsalgia, unspecified
CPT/HCPCS: 59025; G0463

== ENCOUNTER 2021-08-09 09:03 | Emergency (ER) | payer OTHER, SELFPAY ==
[2021-08-09 09:49] VITALS: BP 115/73; PULSE 81; RESP 18; TEMP 36.9; O2SAT 99; BMI 24.8
--- NOTE | 2021-08-09 10:01 | HMH.EDUTC ---
[facility] [place] Clinical Impression: UTI (urinary tract infection) Qualifiers: Urinary tract infection type: site unspecified Hematuria presence: without hematuria Qualified Code(s): N39.0 - Urinary tract infection, site not specified Disposition: Home, Self-Care Condition on Discharge: Good Instructions: Urinary Tract Infection, Phenazopyridine, Cephalexin Additional Instructions: *Increase fluids. Water not Soda or Tea *Start antibiotic immediately and be sure to take as ordered for the FULL length of time although you should start to see improvement over the next 48 hours *Pyridium as needed Remember this medication will turn your urine [place]. This is normal but it will stain what ever it gets on *You should not use Pyridium for more than 48 hours. If so , follow up with your primary physician to review urine culture and ensure that antibiotic is adequate for infection *Be SURE to follow up anytime for new or worsening symptoms with your family doctor. AND in 48 hours for urine culture results with your family doctor, if you do not have a doctor then you may call back to the [facility] for urine culture results and further treatment. We do recommend that you choose and establish care with a Primary Care Physician. AND follow up with them in 10-14 days to repeat UA to ensure infection is resolved and blood no longer present *Be sure to let your PCP know that we sent urine cultures from the [facility] so they can follow up to ensure that you area the on the correct antibiotic Call your doctor office and make appointment for 48 hours (2 days from today) to follow up and get the results of your urine culture and further treatment Prescriptions: cephALEXin [cephALEXin 500mg capsule*] 500 mg PO BID 5 Days #10 cap Transmission Status: Pending to [facility] Fluconazole [Diflucan 150mg tab] 150 mg PO ONCE #1 tab Transmission Status: Pending to [facility] Phenazopyridine HCl [Pyridium 200mg Tablet] 200 pow PO TID #6 tab Transmission Status: Pending to [facility] Referrals: Blair Smalls MD [Primary Care Provider] - As needed Time of Disposition: 10:16 Medical Decision Making - Sunny Inquiry Pt receiving controlled substance: No Sunny was queried for this patient: No Vital Signs: 08/09/21 09:49 Temperature 98.4 F Temperature Source Oral Pulse Rate [Left] 81 Respiratory Rate 18 Blood Pressure [Right Arm] 115/73 Blood Pressure Mean [Right Arm] 87 02 Sat by Pulse Oximetry 99 - Lab Data Lab results reviewed: Yes: I reviewed the patient's lab results. Lab Results 08/09/21 09:54: [facility] Negative [facility] [place]PI - General Stated complaint: possible uti Time Seen by Provider: 08/09/21 10:01 Mode of Arrival: Ambulatory Source of Information: Patient Limitations: No Limitations Description of Symptoms (Recalled from Triage Doc. by RN): pt c/o having a uti and lower back pain x1 wk. HEENT Symptoms (Recalled from RN notes): No Resp Symptoms (Recalled from RN notes): No Skin Symptoms (Recalled from RN notes): No MS Symptoms (Recalled from RN notes): Yes Functional Status (Recalled from RN notes): wnl - History of Present Illness Provider Complaint: Patient states that she thinks she may have a UTI State she has been having burning with urination and feeling or urgency and frequency and achy like feeling in her lower back area State that symptoms have continued to get worse over the las week so she came in to get checked Denies N/V Denies fever and denies abdominal pain - Related Data Previous Rx's Medication Instructions Recorded valacyclovir 1 gram tablet 1,000 mg PO BID #20 tab 12/13/20 sertraline 25 mg tablet 25 mg PO DAILY #30 tab 01/05/21 amoxicillin 500 mg capsule 500 mg PO Q12H 10 Days #20 cap 05/04/21 Fluconazole [Diflucan 150mg tab] 150 mg PO ONCE #1 tab 08/09/21 Phenazopyridine HCl [Pyridium 200 pow PO TID #6 tab 08/09/21 200mg Tablet] cephALEXin [cephAL
[2021-08-09 10:16] LABS: Apearance,Urine Clear (Clear); Bilirubin,Urine Negative (Negative); Blood, Urine Negative (Negative); Color,Urine Yellow (Yellow); Glucose,Urine (UA) Negative (Negative); Ketones,Urine Negative (Negative); Protein,Urine Negative (Negative); Specific Gravity, Urine 1.025 (1.005-1.030); UTC Leukocyte Esterase,Urine Negative (Negative); UTC Nitrate,Urine Negative (Negative); Urobilinogen,Urine 0.2 EU/dl (0.2)
[2021-08-09 10:16] LABS: UTC Pregnancy Test, Urine Negative (Negative)
[2021-08-09 10:20] VITALS: BP 115/73; PULSE 81; RESP 18; TEMP 36.9
== END 2021-08-09 10:21 | disposition home or self-care (01) ==
PROVIDERS: Emergency Provider Nurse Practitioner; PCP Emergency Medicine
DX: N39.0 Urinary tract infection, site not specified (principal); M54.50 Low back pain, unspecified; F41.8 Other specified anxiety disorders; F17.290 Nicotine dependence, other tobacco product, uncomplicated
CPT/HCPCS: 81003; 81025; 99202; G0463

== ENCOUNTER 2021-10-12 13:02 | Emergency (ER) | payer OTHER, SELFPAY ==
[2021-10-12 13:29] VITALS: BP 116/78; PULSE 92; RESP 18; TEMP 36.9; O2SAT 97; BMI 26.6
--- NOTE | 2021-10-12 13:47 | HMH.EDUTC ---
[facility] [place] Impression: UTI (urinary tract infection) Qualifiers: Urinary tract infection type: site unspecified Hematuria presence: without hematuria Qualified Code(s): N39.0 - Urinary tract infection, site not specified Disposition: Home, Self-Care Condition on Discharge: Good Instructions: Urinary Tract Infection, DI for Urinary Tract Infection (UTI) Additional Instructions: *Increase fluids. Water not Soda or Tea *Start antibiotic immediately and be sure to take as ordered for the FULL length of time although you should start to see improvement over the next 48 hours *Pyridium as needed Remember this medication will turn your urine [place]. This is normal but it will stain what ever it gets on *You should not use Pyridium for more than 48 hours. If so , follow up with your primary physician to review urine culture and ensure that antibiotic is adequate for infection *Be SURE to follow up anytime for new or worsening symptoms with your family doctor. AND in 48 hours for urine culture results with your family doctor, if you do not have a doctor then you may call back to the [facility] for urine culture results and further treatment. We do recommend that you choose and establish care with a Primary Care Physician. AND follow up with them in 10-14 days to repeat UA to ensure infection is resolved and blood no longer present *Be sure to let your PCP know that we sent urine cultures from the [facility] so they can follow up to ensure that you area the on the correct antibiotic Call your doctor office and make appointment for 48 hours (2 days from today) to follow up and get the results of your urine culture and further treatment Prescriptions: Cefdinir [Omnicef 300mg Capsule] 300 mg PO BID #20 cap Transmission Status: Received by [facility] 493 Phenazopyridine HCl [Pyridium 200mg Tablet] 200 pow PO TID #6 tab Transmission Status: Received by [facility] Referrals: Blair Smalls MD [Primary Care Provider] - As needed Time of Disposition: 14:34 Medical Decision Making - Sunny Inquiry Pt receiving controlled substance: No Sunny was queried for this patient: No Vital Signs: 10/12/21 13:29 Temperature 98.5 F Temperature Source Oral Pulse Rate [Right Brachial] 92 H Respiratory Rate 18 Blood Pressure [Right Arm] 116/78 Blood Pressure Mean [Right Arm] 90 Blood Pressure Source [Right Arm] Automatic Cuff Blood Pressure Position [Right Arm] Sitting 02 Sat by Pulse Oximetry 97 Oxygen Delivery Method Room Air - Lab Data Lab results reviewed: Yes: I reviewed the patient's lab results. Lab Results 10/12/21 13:27: Urine HCG, Qual Negative Orders (Tests/Meds): ED MEDICATIONS Discontinued Medications Generic Name Dose Route Start Last Admin Trade Name Brittany PRN Reason Stop Dose Admin Ceftriaxone Sodium 1 gm 10/12/21 14:33 10/12/21 14:44 Ceftriaxone 1gm Vial IM 10/12/21 14:34 1 gm ONCE ONE Administration Lidocaine HCl 0 ml 10/12/21 14:33 10/12/21 14:45 Lidocaine 1% 5ml Pf Vial IM 10/12/21 14:34 2.1 ml ONCE ONE Administration ORDERS Category Date Time Status Urine Culture Stat Micro 10/12/21 13:27 Received [facility] [place] - General Stated complaint: uti Time Seen by Provider: 10/12/21 13:47 Mode of Arrival: Ambulatory Limitations: No Limitations Description of Symptoms (Recalled from Triage Doc. by RN): Nausea, diarrhea, pelvic pain HEENT Symptoms (Recalled from RN notes): No Resp Symptoms (Recalled from RN notes): No Skin Symptoms (Recalled from RN notes): No MS Symptoms (Recalled from RN notes): No Functional Status (Recalled from RN notes): wnl - History of Present Illness Provider Complaint: Patient states that she was having nausea and diarrhea but then started having burning when she urinated and pressure like feeling in her pelvic area like she had to go States that today she is no longer having nausea but still having some diarrhea and started wi
[2021-10-12 14:18] LABS: Urine Pregnancy, HCG Qual. Negative (Negative)
[2021-10-12 14:48] VITALS: BP 116/78; PULSE 92; RESP 18; TEMP 36.9; O2SAT 97
[2021-10-12 19:17] LABS: Apearance,Urine Turbid (Clear); Color,Urine Orange (Yellow)
[2021-10-12 19:18] LABS: Specific Gravity, Urine 1.025 (1.005-1.030)
[2021-10-12 19:19] LABS: Blood, Urine Negative (Negative); Glucose,Urine (UA) 100 (Negative); Ketones,Urine TRACE (Negative); Protein,Urine 1+ (Negative)
[2021-10-12 19:20] LABS: Bilirubin,Urine 1+ (Negative); Urobilinogen,Urine 1 EU/dl (0.2)
[2021-10-12 19:21] LABS: UTC Leukocyte Esterase,Urine Negative (Negative); UTC Nitrate,Urine Positive (Negative)
== END 2021-10-12 14:50 | disposition home or self-care (01) ==
PROVIDERS: Emergency Provider Nurse Practitioner; PCP Emergency Medicine
DX: N30.00 Acute cystitis without hematuria (principal); F41.8 Other specified anxiety disorders
CPT/HCPCS: 81003; 81025; 87086; 96372; 99213; G0463; J0696

== ENCOUNTER 2022-09-03 15:25 | Emergency (ER) | payer OTHER, SELFPAY ==
[2022-09-03 16:00] VITALS: BP 120/78; PULSE 71; RESP 20; TEMP 36.8; O2SAT 98; BMI 29.2
--- NOTE | 2022-09-03 16:03 | EXP.UTC ---
Discharge Plan Disposition Patient Disposition: Home, Self-Care Condition: Good Prescriptions Prescriptions: New phenazopyridine 200 mg Tablet 200 mg PO TID Qty: 6 0RF cephalexin 500 mg capsule 500 mg PO QID 7 Days Qty: 28 0RF No Action escitalopram oxalate [Lexapro] 20 mg tablet 20 mg PO DAILY cetirizine [Zyrtec] 10 mg tablet 10 mg PO DAILY PRN (Reason: allergy symptoms) Qty: 30 2RF Referrals Follow up/Referrals: Shaista Silva PA [Primary Care Provider] - See instructions Activity Restrictions/Add. Instructions Additional Instructions/Restrictions: Drink plenty of fluids. Take tylenol for pain or fever. Take the medications as directed. Follow up with your regular doctor. GO TO THE ER FOR ANY WORSENING SYMPTOMS The pyridium will make your urine turn orange, this is an expected side effect. It will stain your clothes if it comes into contact with them. We will culture the urine. That will tell what bacteria is causing your infection and which antibiotics will treat it best. Sometimes the first antibiotic we prescribe turns out to not work against different bacteria. So, make sure you follow up within 3 days if you are not getting better. Clinical Impressions Clinical Impression: UTI (urinary tract infection) Instructions Patient Instructions: Urine Culture, DI for Urinary Tract Infection (UTI), Phenazopyridine Discharge ED Provider: Estrada Elliott [facility] General Stated complaint: Burning when urimation Time Seen by Provider: 09/03/22 16:03 History of Present Illness Provider Complaint: She c/o low back pain and dysuria for the past 2 days. Related Data Home Medications Medication Instructions Recorded Confirmed escitalopram oxalate 20 mg tablet 20 mg PO DAILY , 05/04/22 09/03/22 (Lexapro) Previous Rx's Medication Instructions Recorded cetirizine 10 mg tablet (Zyrtec) 10 mg PO DAILY PRN allergy 05/04/22 symptoms #30 tabs cephalexin 500 mg capsule 500 mg PO QID 7 days #28 caps 09/03/22 phenazopyridine 200 mg tablet 200 mg PO TID #6 tabs 09/03/22 Allergies Allergy/AdvReac Type Severity Reaction Status Date / Time No Known Allergies Allergy Verified 09/03/22 16:32 [facility] Disclaimer: The information contained in this section may have been updated after the patient was seen, as this information can be updated by other users. Medical History Anxiety Social History Smoking Status: Current every day smoker tobacco type: e-cigarettes second hand exposure: No alcohol intake: never substance use type: denies use current occupational status: employed Travel in the last 8 weeks: None household members: family housing: house ROS Obtained: Yes All systems reviewed & no additional complaints except as documented Constitutional Constitutional: Reports system reviewed and no additional complaints, except as documented, Denies chills and Denies fever(s) Eyes Eyes: Denies eye discharge ENT Ears, Nose, Mouth, and Throat: Denies dysphagia, Denies sore throat and Denies throat swelling Cardiovascular Cardiovascular: Denies chest pain and Denies dyspnea Respiratory Respiratory: Denies chest congestion, Denies cough and Denies dyspnea Gastrointestinal Gastrointestingal: Denies abdominal pain, constipation, diarrhea, dysphagia, nausea or vomiting Genitourinary Female Genitourinary: Reports as per HPI, Reports dysuria, Reports sexual dysfunction, Reports urinary frequency, Denies urinary incontinence and Reports urinary hesitancy Musculoskeletal Musculoskeletal: Denies arthralgias and Reports back pain Integumentary/Breasts Skin/Breast: Denies rash Neurologic Neurologic: Denies paresthesias Allergic/Immunologic Allergic/Immunologic: Denies throat swelling Physical Exam General General appearance: alert and in no appar
[2022-09-03 16:33] LABS: Apearance,Urine Clear (Clear); Bilirubin,Urine 1+ (Negative); Blood, Urine Negative (Negative); Color,Urine Yellow (Yellow); Glucose,Urine (UA) Negative (Negative); Ketones,Urine TRACE (Negative); Protein,Urine Trace (Negative); Specific Gravity, Urine 1.025 (1.005-1.030)
[2022-09-03 16:34] LABS: UTC Leukocyte Esterase,Urine 1+ (Negative); UTC Nitrate,Urine Negative (Negative); UTC Pregnancy Test, Urine Negative (Negative); Urobilinogen,Urine >=8 EU/dl (0.2)
[2022-09-03 16:39] VITALS: BP 120/78; PULSE 71; RESP 20; TEMP 36.8; O2SAT 98
== END 2022-09-03 16:39 | disposition home or self-care (01) ==
PROVIDERS: Emergency Provider Nurse Practitioner Family; PCP Physician Assistant
DX: N39.0 Urinary tract infection, site not specified (principal)
CPT/HCPCS: 81003; 81025; 87086; 99212; 99213; G0463

== ENCOUNTER 2022-09-10 07:58 | Emergency (ER) | payer OTHER, SELFPAY ==
[2022-09-10 07:58] VITALS: BP 108/65; PULSE 100; RESP 16; TEMP 36.6; O2SAT 98; BMI 29.2
--- NOTE | 2022-09-10 08:21 | HMH.EDGENADL ---
Discharge Plan Disposition Patient Disposition: Home, Self-Care Condition: Good Prescriptions Prescriptions: New ondansetron 4 mg tablet,disintegrating 4 mg PO Q8H PRN (Reason: nausea and vomiting) 4 Days Qty: 12 0RF No Action escitalopram oxalate [Lexapro] 20 mg tablet 20 mg PO DAILY cetirizine [Zyrtec] 10 mg tablet 10 mg PO DAILY PRN (Reason: allergy symptoms) Qty: 30 2RF phenazopyridine 200 mg Tablet 200 mg PO TID Qty: 6 0RF cephalexin 500 mg capsule 500 mg PO QID 7 Days Qty: 28 0RF Referrals Follow up/Referrals: Shaista Silva PA [Primary Care Provider] - See instructions Activity Restrictions/Add. Instructions Additional Instructions/Restrictions: You were evaluated in the emergency department today. Please make sure that you orally hydrate at home. Eat a bland diet until you are no longer having nausea, vomiting, or diarrhea. Take Zofran as needed at home. Follow-up with your primary care provider over the next 3 days. Return to the emergency department for any new or worsening symptoms. Clinical Impressions Clinical Impression: Nausea, vomiting and diarrhea Instructions Patient Instructions: DI for Diarrhea and Traveler's Diarrhea -- Adult, DI for Nausea -- Adult Discharge ED Provider: Kia Salazar General Adult HPI General Chief complaint: Nausea/Vomiting/Diarrhea Stated complaint: Persistant diarrhea nausea fatigue Time Seen by Provider: 09/10/22 07:59 Mode of Arrival: Ambulatory Source of Information: Patient Limitations: No Limitations Description of Symptoms (Recalled from ER Triage Doc. by RN): pt states she has had nausea, vomiting, and diarrhea for a few days, states she had the stomach bug last weekend was better for a few days then symtptoms started again, diagnosed with a UTI a week ago but was unable to complete antibiotic due to being sick History of Present Illness HPI narrative: This patient is a 27-year-old female presenting to the emergency department for evaluation with concern for persistent diarrhea. She states that she had a stomach bug just over a week ago o, but she got better. Approximately 4 days ago, she started having loose, watery diarrhea multiple times a day. On Saturday 1 week ago, she was diagnosed with a urinary tract infection and put on Keflex. She states that she took a few doses of this, however she stopped it once the diarrhea started. She states that she has also had nausea and a couple episodes of nonbloody nonbilious emesis. Diarrhea is nonbloody, and she has no melena. She states that anything she eats or drinks goes right through her, making her symptoms worse. She denies experiencing any fevers, chills, abdominal pain, or other concerns with this. She also denies any recent dysuria, frequency, polyuria, hematuria, or other concerns. She has tried taking Zofran at home without significant relief. Related Data Home Medications Medication Instructions Recorded Confirmed escitalopram oxalate 20 mg tablet 20 mg PO DAILY , 05/04/22 09/03/22 (Lexapro) Previous Rx's Medication Instructions Recorded cetirizine 10 mg tablet (Zyrtec) 10 mg PO DAILY PRN allergy 05/04/22 symptoms #30 tabs cephalexin 500 mg capsule 500 mg PO QID 7 days #28 caps 09/03/22 phenazopyridine 200 mg tablet 200 mg PO TID #6 tabs 09/03/22 ondansetron 4 mg disintegrating 4 mg PO Q8H PRN nausea and 09/10/22 tablet vomiting 4 days #12 tabs Allergies Allergy/AdvReac Type Severity Reaction Status Date / Time No Known Allergies Allergy Verified 09/03/22 16:32 [facility] Disclaimer: The information contained in this section may have been updated after the patient was seen, as this information can be updated by other users. Medical History Anxiety Social History Smoking Status: Never smoker second hand exposure: No alcohol inta
[2022-09-10 08:30] VITALS: BP 108/73; PULSE 91; O2SAT 99
[2022-09-10 08:32] LABS: Basophils # 0.1 K/mm3 (0-0.2); Basophils % 1.5 % (0.1-2.0); Eosinophils # 0.2 K/mm3 (0.0-0.4); Eosinophils % 2.6 % (0.1-12.0); Hematocrit 42.1 % (37.0-47.0); Hemoglobin 14.3 g/dL (12.2-16.2); Lymphocytes # 1.7 K/mm3 (0.7-4.5); Lymphocytes % 21.5 % (10-50); Mean Corpuscular Hemoglobin 29.2 pg (27.0-31.2); Mean Corpuscular Volume 86.1 fl (81-99); Mean Platelet Volume 7.7 fl (7.4-10.4); Monocytes # 0.4 K/mm3 (0.1-1.0); Monocytes % 5.5 % (1.7-9.3); Neutrophils # 5.5 K/mm3 (1.8-7.8); Neutrophils % 68.8 % (37.0-80.0); Platelet Count 342 K/mm3 (142-424); Red Blood Count 4.89 M/mm3 (4.20-5.40); Red Cell Distribution Width 13.5 % (11.5-17.5); White Blood Count 8.1 K/mm3 (4.8-10.8)
[2022-09-10 08:39] LABS: Alanine Aminotransferase 86 U/L (12-78); Albumin Level 4.7 g/dl (3.5-5.0); Albumin/Globulin Ratio 1.5 (1.1-1.8); Alkaline Phosphatase 82 U/L (38-126); Anion Gap 10.5 mEq/L (5-15); Aspartate Amino Transferase 43 U/L (14-36); Bilirubin,Total 0.5 mg/dl (0.2-1.3); Blood Urea Nitrogen 11 mg/dl (7-17); Calcium 8.4 mg/dl (8.4-10.2); Carbon Dioxide 26 mmol/L (22.0-30.0); Chloride 106 mmol/L (98-107); Creatinine Clearance Estimated 115 mL/min (50-200); Estimated Glomerular Filt Rate 87 ml/min (>60); GFR (African American) 106 ML/MIN (>60); Globulin 3.1 g/dL (1.3-3.2); Glucose 95 mg/dl (74-100); Lipase 72 U/L (23-300); Potassium 3.5 mmoL/L (3.5-5.1); Sodium 139 mmol/L (136-145); Total Protein,Serum 7.8 g/dl (6.3-8.2)
[2022-09-10 08:41] LABS: Microscopic, Urine URINE MICROSCOPIC (MICROSCOPIC)
[2022-09-10 08:45] LABS: Appearance,Urine SL CLOUDY (Clear); Blood, Urine 2+ (Negative); Color,Urine YELLOW (Yellow); Glucose,Urine (UA) Negative (Negative); Ketones,Urine Negative (Negative); Leukocyte Esterase,Urine 1+ (Negative); Nitrate,Urine Negative (Negative); Protein,Urine Negative (Negative); Specific Gravity, Urine >= 1.030 (1.005-1.030)
[2022-09-10 09:03] LABS: Bilirubin,Urine 1+ (Negative)
[2022-09-10 09:04] LABS: HCG Qualitative, Serum Negative (Negative)
[2022-09-10 09:04] LABS: Bacteria,Urine 2+ /lpf; Mucus,Urine Trace /lpf; Squamous Epithelial Cell,Urine Occasional #/hpf (0-5)
[2022-09-10 09:55] VITALS: BP 94/57; PULSE 91; O2SAT 99
--- NOTE | 2022-09-10 09:55 | PC.NURSE ---
provided pt with crackers and something to drink for PO challenge. Pt aware of need for stool sample.
[2022-09-10 10:00] VITALS: BP 94/61; PULSE 94; O2SAT 100
[2022-09-10 10:24] VITALS: BP 96/63; PULSE 86; RESP 16; TEMP 37; O2SAT 100
== END 2022-09-10 10:26 | disposition home or self-care (01) ==
PROVIDERS: Emergency Provider Emergency Medicine; PCP Physician Assistant
DX: R19.7 Diarrhea, unspecified (principal); R11.2 Nausea with vomiting, unspecified; F41.9 Anxiety disorder, unspecified
CPT/HCPCS: 80053; 81001; 83690; 84703; 85025; 87086; 96361; 96374; 99285; J2405

== ENCOUNTER 2022-09-11 09:44 | Emergency (ER) | payer OTHER, SELFPAY ==
[2022-09-11] VITALS (7 sets, daily range): BP systolic 110–132; BP diastolic 68–89; PULSE 77–99; RESP 14–15; TEMP 36.7–36.8; O2SAT 97–100; BMI 29.7
[2022-09-11 09:56] LABS: Microscopic, Urine URINE MICROSCOPIC (MICROSCOPIC)
[2022-09-11 09:57] LABS: Appearance,Urine CLEAR (Clear); Blood, Urine TRACE-I (Negative); Color,Urine YELLOW (Yellow); Glucose,Urine (UA) Negative (Negative); Ketones,Urine 1+ (Negative); Leukocyte Esterase,Urine TRACE (Negative); Nitrate,Urine Negative (Negative); Protein,Urine Negative (Negative); Specific Gravity, Urine >= 1.030 (1.005-1.030); Urobilinogen,Urine 0.2 EU/dl (0.2)
[2022-09-11 10:00] LABS: Urine Pregnancy, HCG Qual. Negative (Negative)
[2022-09-11 10:01] LABS: Bilirubin,Urine Negative (Negative)
--- NOTE | 2022-09-11 10:08 | PC.NURSE ---
SHANNAN REEVES at for pt rickal
--- NOTE | 2022-09-11 10:10 | PC.NURSE ---
ER AT BEDSIDE
[2022-09-11 10:24] LABS: Bacteria,Urine Trace /lpf; Mucus,Urine Trace /lpf; RBC,Urine Occasional #/hpf (0-3); Squamous Epithelial Cell,Urine Occasional #/hpf (0-5)
--- NOTE | 2022-09-11 10:27 | CT_ITS ---
FINAL REPORT TECHNIQUE: Thin section axial images were obtained through the abdomen after intravenous contrast. Reconstruction images were obtained from the axial data. Exam was performed using dose reduction techniques. CLINICAL HISTORY: abdpain COMPARISON: 11/29/2019 FINDINGS: The lung bases are clear. There is a small hypodense lesion in the right lobe of the liver which was not seen on the prior exam but favored to be benign. The gallbladder is present. The spleen, adrenal glands, and pancreas are unremarkable. There is no hydronephrosis or solid renal mass. Abdominal GI tract is without acute abnormality. No small bowel obstruction is seen. There are a few fluid-filled small bowel loops in left abdomen which is nonspecific. There is abnormal attenuation in the anterior abdomen wall at the site of the previous supraumbilical fat containing hernia. This could be related to prior hernia repair as the abdominal wall defect is not well seen on today's exam. However, if this patient has not had a hernia repair, an inflamed hernia is not excluded. There is no abdominal lymphadenopathy or ascites. The uterus is unremarkable. The proximal colon is distended with fluid. The more distal colon demonstrates long segment wall thickening. This is most consistent with infectious or inflammatory colitis. The appendix is normal. There is no pelvic lymphadenopathy. Free fluid is likely physiologic. No acute osseous abnormalities identified. IMPRESSION: 1. Findings most consistent with infectious or inflammatory colitis. 2. Abnormality in the anterior abdominal wall may be from prior ventral hernia repair. Please correlate with surgical history. 3. Small liver lesion not seen on prior PET favored to be benign. Reviewed, Interpreted and Dictated by Karen Ramos MD Transcribed by Christelle Love Authenticated and . [facility]
--- NOTE | 2022-09-11 10:29 | HMH.EDGENADL ---
Discharge Plan Disposition Patient Disposition: Home, Self-Care Condition: Good Prescriptions Prescriptions: New amoxicillin-pot clavulanate 875-125 mg tablet 1 tab PO BID Qty: 20 0RF dicyclomine 10 mg capsule 10 mg PO TID PRN (Reason: cramps) Qty: 30 0RF No Action escitalopram oxalate [Lexapro] 20 mg tablet 20 mg PO DAILY cetirizine [Zyrtec] 10 mg tablet 10 mg PO DAILY PRN (Reason: allergy symptoms) Qty: 30 2RF phenazopyridine 200 mg Tablet 200 mg PO TID Qty: 6 0RF cephalexin 500 mg capsule 500 mg PO QID 7 Days Qty: 28 0RF ondansetron 4 mg tablet,disintegrating 4 mg PO Q8H PRN (Reason: nausea and vomiting) 4 Days Qty: 12 0RF Referrals Follow up/Referrals: Linh Liz MD [Referring] - See instructions Shaista Silva PA [Primary Care Provider] - See instructions Activity Restrictions/Add. Instructions Additional Instructions/Restrictions: Follow bland diet. Avoid fried greasy spicy foods. Avoid dairy products and caffeine. Return for worsening abdominal pain, fever bloody stools or other concerns. Follow-up with gastroenterology. Clinical Impressions Clinical Impression: Colitis Stand Alone Forms Stand Alone Forms: Work/School Release Instructions Patient Instructions: DI for Acute Abdominal Pain Discharge ED Provider: Laureano Vazquez General Adult HPI General Chief complaint: Abdominal Pain Stated complaint: abd pain, diarrhea Time Seen by Provider: 09/11/22 10:08 Mode of Arrival: Ambulatory Source of Information: Patient Limitations: No Limitations Description of Symptoms (Recalled from ER Triage Doc. by RN): Pt reports continued watery diarrhea for three days and eval'd 09/10 for same, also accompanied by n/v/abd cramping, LMP 07/22/23, was on Rx cepahlexin for uti but stopped w GI sx, NAD History of Present Illness HPI narrative: Patient presents with abdominal discomfort and diarrhea that began approximate 3 days ago. She states she had too numerous to count episodes of diarrhea she denies vomiting but has had some nausea. She denies fever. Symptoms are described as moderate to severe without exacerbating or alleviating factors. Related Data Home Medications Medication Instructions Recorded Confirmed escitalopram oxalate 20 mg tablet 20 mg PO DAILY , 05/04/22 09/03/22 (Lexapro) Previous Rx's Medication Instructions Recorded cetirizine 10 mg tablet (Zyrtec) 10 mg PO DAILY PRN allergy 05/04/22 symptoms #30 tabs cephalexin 500 mg capsule 500 mg PO QID 7 days #28 caps 09/03/22 phenazopyridine 200 mg tablet 200 mg PO TID #6 tabs 09/03/22 ondansetron 4 mg disintegrating 4 mg PO Q8H PRN nausea and 09/10/22 tablet vomiting 4 days #12 tabs amoxicillin 875 mg-potassium 1 tab PO BID #20 tabs 09/11/22 clavulanate 125 mg tablet dicyclomine 10 mg capsule 10 mg PO TID PRN cramps #30 caps 09/11/22 Allergies Allergy/AdvReac Type Severity Reaction Status Date / Time No Known Allergies Allergy Verified 09/03/22 16:32 [facility] Disclaimer: The information contained in this section may have been updated after the patient was seen, as this information can be updated by other users. Medical History Anxiety Social History Smoking Status: Current every day smoker tobacco type: e-cigarettes second hand exposure: No alcohol intake: never substance use type: denies use current occupational status: employed Travel in the last 8 weeks: None household members: family housing: house ROS Obtained: Yes All systems reviewed & no additional complaints except as documented Physical Exam General General appearance: alert and in no apparent distress Head Head exam: atraumatic, normocephalic and normal inspection Eye Eye exam: Present normal appearance, PERRL and EOMI ENT ENT exam: Present normal exam, normal oropharynx, mucous m
--- NOTE | 2022-09-11 10:32 | PC.NURSE ---
PT CALLED OUT CONCERN ABOUT STOOL SAMPLE NEEDED STATED SHE COULD POSSIBLE ONLY GIVE SAMPLE IF SHE HAD SOMETHING TO EAT. ER MD REQUEST AT THIS TIME THAT SHE HAT NOTHING TO EAT, TOLD NURSE RN GREG
--- NOTE | 2022-09-11 10:39 | PC.NURSE ---
TERA GARZA IS AT BEDSIDE
[2022-09-11 11:00] LABS: Basophils # 0.1 K/mm3 (0-0.2); Basophils % 1.2 % (0.1-2.0); Eosinophils # 0.2 K/mm3 (0.0-0.4); Eosinophils % 2.5 % (0.1-12.0); Hematocrit 43.1 % (37.0-47.0); Hemoglobin 14.4 g/dL (12.2-16.2); Lymphocytes # 1.4 K/mm3 (0.7-4.5); Lymphocytes % 18.3 % (10-50); Mean Corpuscular HGB Conc 33.4 g/dL (31.8-35.4); Mean Corpuscular Hemoglobin 29.1 pg (27.0-31.2); Mean Corpuscular Volume 87.1 fl (81-99); Mean Platelet Volume 7.9 fl (7.4-10.4); Monocytes # 0.4 K/mm3 (0.1-1.0); Monocytes % 4.7 % (1.7-9.3); Neutrophils # 5.6 K/mm3 (1.8-7.8); Neutrophils % 73.3 % (37.0-80.0); Platelet Count 331 K/mm3 (142-424); Red Blood Count 4.95 M/mm3 (4.20-5.40); Red Cell Distribution Width 13.4 % (11.5-17.5); White Blood Count 7.6 K/mm3 (4.8-10.8)
--- NOTE | 2022-09-11 11:03 | PC.NURSE ---
COLLECTED PT BM FOR STOOL SAMPLE
--- NOTE | 2022-09-11 11:15 | PC.NURSE ---
patient returned from radiology via WC
[2022-09-11 11:28] LABS: Chloride 106 mmol/L (98-107); Potassium 3.8 mmoL/L (3.5-5.1); Sodium 140 mmol/L (136-145)
[2022-09-11 11:31] LABS: Alanine Aminotransferase 68 U/L (12-78); Albumin/Globulin Ratio 1.4 (1.1-1.8); Alkaline Phosphatase 79 U/L (38-126); Anion Gap 11.8 mEq/L (5-15); Aspartate Amino Transferase 34 U/L (14-36); Bilirubin,Total 0.7 mg/dl (0.2-1.3); Blood Urea Nitrogen 6 mg/dl (7-17); Calcium 8.5 mg/dl (8.4-10.2); Carbon Dioxide 26 mmol/L (22.0-30.0); Creatinine Clearance Estimated 134 mL/min (50-200); Estimated Glomerular Filt Rate 102 ml/min (>60); GFR (African American) 123 ML/MIN (>60); Globulin 3.5 g/dL (1.3-3.2); Glucose 92 mg/dl (74-100); Lipase 66 U/L (23-300); Total Protein,Serum 8.5 g/dl (6.3-8.2)
--- NOTE | 2022-09-11 11:38 | PC.NURSE ---
Rounded on patient, she is aware that we are waiting on imaging/lab results. She was given a warm blanket and pillow for comfort. Call light within reach. No other needs at this time.
--- NOTE | 2022-09-11 12:22 | PC.NURSE ---
PT RESTING CALL LIGHT AT BEDSIDE
--- NOTE | 2022-09-11 13:01 | PC.NURSE ---
Rounded on patient; patient resting on ED stretcher. Lights out for her comfort. Call light within reach. She is aware that we are still waiting on one test result at this time
--- NOTE | 2022-09-11 14:08 | PC.NURSE ---
ROUNDED ON PT SHE IS RESTING AT THIS TIME CALL LIGHT AT BEDSIDE
[2022-09-11 14:10] LABS: Adenovirus F 40/41, stool Not Detected (NotDetected); Astrovirus Not Detected (NotDetected); Campylobacter Not Detected (NotDetected); Clostridium Difficile A/B, PCR Not Detected (NotDetected); Cryptosporidium Not Detected (NotDetected); Cyclospora Cayetanesis Not Detected (NotDetected); Entamoeba histolytica Not Detected (NotDetected); Enteroaggregative E coli Not Detected (NotDetected); Enteropathogenic E coli Not Detected (NotDetected); Enterotoxigenic E coli Not Detected (NotDetected); Giardia lamblia Not Detected (NotDetected); Norovirus Not Detected (NotDetected); Plesimonas Shigalloides, PCR Not Detected (NotDetected); Rotavirus A Not Detected (NotDetected); Salmonella, PCR Not Detected (NotDetected); Sapovirus Not Detected (NotDetected); Shiga-like toxin E coli Not Detected (NotDetected); Shigella Enterovasive E coli Not Detected (NotDetected); Vibrio Cholerae Not Detected (NotDetected); Vibrio, PCR Not Detected (NotDetected); Yersinia Entercolitica, PCR Not Detected (NotDetected)
--- NOTE | 2022-09-11 15:15 | PC.NURSE ---
Rounded on patient; pt resting on ed stretcher with no needs at this time. Aware that we are still waiting on stool results. Call light within reach
--- NOTE | 2022-09-11 15:20 | PC.NURSE ---
SPOKE TO LAB ABOUT CIDIFF TEST BE ANOTHER HOUR ON RESULTING
--- NOTE | 2022-09-11 15:40 | PC.NURSE ---
ROUNDED ON PT STATED SHE WAS FINE AT THIS TIME, CALL LIGHT AT BEDSIDE
--- NOTE | 2022-09-11 16:35 | PC.NURSE ---
spoke to lab about stool sample results
== END 2022-09-11 16:59 | disposition home or self-care (01) ==
PROVIDERS: Emergency Provider Emergency Medicine; PCP Physician Assistant
DX: K52.9 Noninfective gastroenteritis and colitis, unspecified (principal); F41.9 Anxiety disorder, unspecified; F17.299 Nicotine dependence, other tobacco product, with unspecified nicotine-induced disorders
CPT/HCPCS: 74177; 80053; 81001; 81025; 83690; 85025; 87506; 96361; 96374; 99285; J2405; Q9967

== ENCOUNTER → 2022-10-30 18:33 | Outpatient (CLI) | payer OTHER, SELFPAY ==
[2022-10-30 23:32] LABS: Thyroid Stimulating Hormone 0.63 uIU/mL (0.465-4.68)
== END ==
PROVIDERS: PCP Nurse Practitioner Family; Visit Provider Nurse Practitioner Family
DX: F32.9 Major depressive disorder, single episode, unspecified (principal)
CPT/HCPCS: 84443

== ENCOUNTER → 2022-11-01 15:03 | Outpatient (CLI) | payer OTHER, SELFPAY | PROVIDERS: PCP Emergency Medicine; Visit Provider Nurse Practitioner | DX: Z11.1 Encounter for screening for respiratory tuberculosis (principal) | CPT/HCPCS: 86580 ==

== ENCOUNTER → 2023-04-17 10:20 | Outpatient (CLI) | payer BC, OTHER, SELFPAY ==
[2023-03-26 17:55] LABS: Adenovirus,PCR Not Detected (NotDetected); Bordetella Pertussis Not Detected (NotDetected); Chlamydophila Pneumoniae, PCR Not Detected (NotDetected); Coronavirus 19, PCR Not Detected (NotDetected); Coronavirus 229E Not Detected (NotDetected); Coronavirus NL63 Not Detected (NotDetected); Coronavirus OC43 Not Detected (NotDetected); Coronovirus HKU1,PCR Not Detected (NotDetected); Human Metapneumovirus Not Detected (NotDetected); Influenza A, PCR Not Detected (NotDetected); Influenza AH1, 2009 Not Detected (NotDetected); Influenza AH1, PCR Not Detected (NotDetected); Influenza AH3,PCR Not Detected (NotDetected); Influenza B, PCR Not Detected (NotDetected); Mycoplasma Pneumoniae, PCR Not Detected (NotDetected); Parainfluenza 1, PCR Not Detected (NotDetected); Parainfluenza 2, PCR Not Detected (NotDetected); Parainfluenza 3, PCR Not Detected (NotDetected); Parainfluenza 4, PCR Not Detected (NotDetected); Respiratory Syncytial Virus Not Detected (NotDetected)
[2023-03-26 21:39] LABS: Rhinovirus/Enterovirus Detected (NotDetected)
== END ==
PROVIDERS: PCP Student in an Organized Health Care Education/Training Program; Visit Provider Student in an Organized Health Care Education/Training Program
DX: R09.81 Nasal congestion (principal); B34.1 Enterovirus infection, unspecified
CPT/HCPCS: 87581; 87632; 87798

== ENCOUNTER 2023-04-28 13:16 | Emergency (ER) | payer BC, SELFPAY ==
[2023-04-28 13:25] VITALS: BP 121/85; PULSE 86; RESP 18; TEMP 36.7; O2SAT 98; BMI 28.1
--- NOTE | 2023-04-28 13:47 | EXP.UTC ---
Discharge Plan Disposition Patient Disposition: Home, Self-Care Condition: Good Prescriptions Prescriptions: New amoxicillin 875 mg tablet 875 mg PO BID Qty: 20 0RF fluticasone propionate [Flonase Allergy Relief] 50 mcg/actuation spray,suspension 1 - 2 spray intranasal DAILY Qty: 16 0RF Rx Instructions: administer into each nostril methylprednisolone [Medrol (Lenny)] 4 mg tablets,dose pack See Rx Instructions .Route .COMPLEX 6 Days Qty: 21 0RF Rx Instructions: taper pack; No Action venlafaxine 75 mg capsule,extended release 24hr 75 mg PO DAILY Rx Instructions: Take 1 capsule by mouth once daily buspirone 7.5 mg tablet 10 mg PO BID Referrals Follow up/Referrals: Shaista Silva PA [Primary Care Provider] - See instructions Activity Restrictions/Add. Instructions Additional Instructions/Restrictions: *Monitor Temp, Over the counter Motrin or Tylenol as directed/as needed Tylenol every 4 hours and Motrin every 6 hours (as long as your family doctor has told you that you can take it) for fever or pain. and straight to ER if unable to lower temp less than 101.0 after medication given *Warm salt water gargles may help to soothe the throat *Throat Lozenges? *Warm fluids like tea with honey may help to soothe the throat? *Sleep elevated *Humidifier/Vaporizer Follow up IMMEDIATELY for new or worsening symptoms or no Noticeable improvement over the next 48-72 hours. 911 for difficulty breathing or swallowing Clinical Impressions Clinical Impression: Otitis media Qualifiers: Otitis media type: unspecified Laterality: bilateral Qualified Code(s): H66.93 - Otitis media, unspecified, bilateral Instructions Patient Instructions: Middle Ear Infection, Amoxicillin Discharge ED Provider: Katy Ortega [facility] General Stated complaint: dizzy, ear pain Mode of Arrival: Ambulatory Source of Information: Patient Limitations: No Limitations Time Seen by Provider: 04/28/23 13:48 Description of Symptoms (Recalled from Triage Doc. by RN): PATIENT C/O DIZZINESS, EARS FEELING FULL, AND TROUBLE HEARING X 3 DAYS HEENT Symptoms (Recalled from RN notes): Yes Resp Symptoms (Recalled from RN notes): No Skin Symptoms (Recalled from RN notes): No MS Symptoms (Recalled from RN notes): No Functional Status (Recalled from RN notes): WNL History of Present Illness Provider Complaint: Patient states that she has been having bilateral ear pain and pressure, sinus congestion and pressure and feeling of fullness with trouble hearing and earlier she felt a little dizzy and off balance when she turned her head too quickly Related Data Home Medications Medication Instructions Recorded Confirmed buspirone 7.5 mg tablet 10 mg PO BID Anxiety 04/28/23 04/28/23 venlafaxine 75 mg capsule,extended 75 mg PO DAILY Anxiety 04/28/23 04/28/23 release 24 hr Previous Rx's Medication Instructions Recorded amoxicillin 875 mg tablet 875 mg PO BID #20 tabs 04/28/23 fluticasone propionate 50 1 - 2 spray intranasal DAILY #16 04/28/23 mcg/actuation nasal grams spray,suspension (Flonase Allergy Relief) methylprednisolone 4 mg tablets in See Rx Instructions .Route 04/28/23 a dose pack (Medrol (Lenny)) .COMPLEX 6 days #21 tabs Allergies Allergy/AdvReac Type Severity Reaction Status Date / Time No Known Allergies Allergy Verified 03/26/23 09:14 Worker's Comp Is this a Worker's Comp case?: No [facility] Disclaimer: The information contained in this section may have been updated after the patient was seen, as this information can be updated by other users. Medical History Anxiety Social History Smoking Status: Current every day smoker tobacco type: e-cigarettes second hand exposure: No alcohol intake: never substance use type: denies use
[2023-04-28 14:02] VITALS: BP 121/85; PULSE 86; RESP 18; TEMP 36.7; O2SAT 98
== END 2023-04-28 14:04 | disposition home or self-care (01) ==
PROVIDERS: Emergency Provider Nurse Practitioner; PCP Physician Assistant
DX: H66.93 Otitis media, unspecified, bilateral (principal); R42 Dizziness and giddiness; F41.9 Anxiety disorder, unspecified; F17.290 Nicotine dependence, other tobacco product, uncomplicated
CPT/HCPCS: 99212; 99214; G0463

== ENCOUNTER 2023-06-02 09:40 | Emergency (ER) | payer BC, SELFPAY ==
[2023-06-02 10:00] VITALS: BP 122/80; PULSE 105; RESP 18; TEMP 36.9; O2SAT 96; BMI 30.8
--- NOTE | 2023-06-02 10:06 | EXP.UTC ---
Discharge Plan Disposition Patient Disposition: Home, Self-Care Condition: Good Prescriptions Prescriptions: New qnnvjmbdntxxxic-uavxchmmf-XT [Bromfed DM] 2-30-10 mg/5 mL Syrup 5 ml PO Q6H PRN (Reason: Cough) Qty: 240 0RF No Action venlafaxine 75 mg capsule,extended release 24hr 75 mg PO DAILY Rx Instructions: Take 1 capsule by mouth once daily buspirone 7.5 mg tablet 10 mg PO BID Referrals Follow up/Referrals: Shaista Silva PA [Primary Care Provider] - See instructions Activity Restrictions/Add. Instructions Additional Instructions/Restrictions: Drink plenty of fluids. Take tylenol or ibuprofen for pain or fever. Follow up with your regular doctor. GO TO THE ER FOR ANY WORSENING SYMPTOMS Clinical Impressions Clinical Impression: Acute viral syndrome Stand Alone Forms Stand Alone Forms: Work/School Release Instructions Patient Instructions: DI for Viral Syndrome, Coronavirus Disease 2019, Preventing the Spread of Coronavirus Discharge Instructions Discharge ED Provider: Estrada Elliott [facility] General Stated complaint: body aches,chills,cough,congestion Time Seen by Provider: 06/02/23 10:06 History of Present Illness Provider Complaint: She states that for the past 2 days she has had body aches, chills, dry nonproductive cough, and sinus congestion. She has been exposed to strep by her children having it recently. Related Data Home Medications Medication Instructions Recorded Confirmed buspirone 7.5 mg tablet 10 mg PO BID Anxiety 04/28/23 06/02/23 venlafaxine 75 mg capsule,extended 75 mg PO DAILY Anxiety 04/28/23 06/02/23 release 24 hr Previous Rx's Medication Instructions Recorded pipmtdshnyyhegf-wkqkxgscqjqjklp-QM 5 ml PO Q6H PRN Cough #240 mL 06/02/23 2 mg-30 mg-10 mg/5 mL oral syrup (Bromfed DM) Allergies Allergy/AdvReac Type Severity Reaction Status Date / Time No Known Allergies Allergy Verified 06/02/23 10:27 [facility] Disclaimer: The information contained in this section may have been updated after the patient was seen, as this information can be updated by other users. Medical History Anxiety Social History Smoking Status: Current every day smoker tobacco type: e-cigarettes second hand exposure: No alcohol intake: never substance use type: denies use current occupational status: employed Travel in the last 8 weeks: None household members: family housing: house ROS Obtained: Yes All systems reviewed & no additional complaints except as documented Constitutional Constitutional: Reports chills and Reports fever(s) Eyes Eyes: Denies eye discharge ENT Ears, Nose, Mouth, and Throat: Reports as per HPI Cardiovascular Cardiovascular: Denies chest pain Respiratory Respiratory: Denies chest congestion and Reports cough Gastrointestinal Gastrointestingal: Reports nausea; Denies abdominal pain, constipation, cramping, diarrhea or vomiting Musculoskeletal Musculoskeletal: Denies arthralgias Integumentary/Breasts Skin/Breast: Denies rash Neurologic Neurologic: Denies paresthesias Physical Exam General General appearance: alert and in no apparent distress Eye Eye exam: Present normal appearance, PERRL and EOMI ENT ENT exam: Present mucous membranes moist and normal external ear exam Expanded ENT Exam External ear exam: Present normal external inspection TM/Canal exam: Bilateral TM: erythema and bulging Nose exam: Absent sinus tenderness Nasal speculum exam: Bilateral: normal Mouth exam: Present normal external inspection; Absent drooling Teeth exam: Present normal inspection Throat exam: Present tonsillar erythema and tonsillomegaly Neck Neck exam: Present normal inspection, full ROM and trachea midline; Absent tenderness, lymphadenopathy or thyromegaly Chest Chest inspection: Present normal inspec
[2023-06-02 10:17] LABS: UTC Influenza A Antigen Negative (Negative); UTC Influenza B Antigen Negative (Negative)
[2023-06-02 10:44] LABS: UTC Strep Screen (Rapid) Negative (Negative)
[2023-06-02 11:10] VITALS: BP 122/80; PULSE 105; RESP 18; TEMP 36.9; O2SAT 96
== END 2023-06-02 11:10 | disposition home or self-care (01) ==
PROVIDERS: Emergency Provider Nurse Practitioner Family; PCP Physician Assistant
DX: R05.9 Cough, unspecified (principal); B34.9 Viral infection, unspecified; F17.210 Nicotine dependence, cigarettes, uncomplicated; F41.9 Anxiety disorder, unspecified
CPT/HCPCS: 87635; 87804; 87880; 99212; 99214; G0463

== ENCOUNTER 2023-07-16 13:03 | Emergency (ER) | payer BC, SELFPAY ==
[2023-07-16 14:10] VITALS: BP 129/84; PULSE 91; RESP 18; TEMP 37.1; O2SAT 98; BMI 30.8
[2023-07-16 14:27] LABS: UTC Influenza A Antigen Negative (Negative); UTC Influenza B Antigen Negative (Negative)
[2023-07-16 14:28] LABS: Apearance,Urine Clear (Clear); Bilirubin,Urine Negative (Negative); Blood, Urine Negative (Negative); Color,Urine Yellow (Yellow); Glucose,Urine (UA) Negative (Negative); Ketones,Urine Negative (Negative); PH,Urine 5.5 (5.0-8.5); Protein,Urine Negative (Negative); Specific Gravity, Urine 1.015 (1.005-1.030); UTC Leukocyte Esterase,Urine Negative (Negative); UTC Nitrate,Urine Negative (Negative); Urobilinogen,Urine 0.2 EU/dl (0.2)
--- NOTE | 2023-07-16 14:49 | EXP.UTC ---
Discharge Plan Disposition Patient Disposition: Home, Self-Care Condition: Good Prescriptions Prescriptions: New gchskkcmeflyjhy-mccyikyuj-FX [Bromfed DM] 2-30-10 mg/5 mL syrup 10 ml PO Q6H PRN (Reason: cold symptoms) Qty: 200 0RF No Action buspirone 5 mg tablet See Rx Instructions .ROUTE .COMPLEX Qty: 60 0RF Dose Instruction: Take 1 tablet by mouth twice daily Rx Instructions: Take 1 tablet by mouth twice daily albuterol sulfate 90 mcg/actuation HFA aerosol inhaler See Rx Instructions .ROUTE .COMPLEX Patient Comments: INHALE 2 PUFFS BY MOUTH EVERY 4 HOURS NEEDED Rx Instructions: INHALE 2 PUFFS BY MOUTH EVERY 4 HOURS NEEDED venlafaxine 75 mg capsule,extended release 24hr 75 mg PO DAILY Rx Instructions: Take 1 capsule by mouth once daily Referrals Follow up/Referrals: Shaista Silva PA [Primary Care Provider] - See instructions Clinical Impressions Clinical Impression: Acute upper respiratory infection, Low back pain Instructions Patient Instructions: DI for Low Back Pain, DI for Viral Upper Respiratory Infection -- Adult, Exercise May Reduce Risk of Low Back Pain Discharge ED Provider: Katy Ortega [facility] HPI General Stated complaint: congestion body aches cough Mode of Arrival: Ambulatory Source of Information: Patient Limitations: No Limitations Time Seen by Provider: 07/16/23 14:41 Description of Symptoms (Recalled from Triage Doc. by RN): lower back pain, body aches, congestion, cough, sinus pressure, and neck pain HEENT Symptoms (Recalled from RN notes): Yes Resp Symptoms (Recalled from RN notes): No Skin Symptoms (Recalled from RN notes): No MS Symptoms (Recalled from RN notes): No Functional Status (Recalled from RN notes): n/a History of Present Illness Provider Complaint: Pt relates that her symptoms started yesterday. She reports sinus congestion, clear drainage, headache, low back pain, and malaise. She states that her back feels like the pain she had in her back during . She states that she has taken Mucinex for her symptoms. Related Data Home Medications Medication Instructions Recorded Confirmed venlafaxine 75 mg capsule,extended 75 mg PO DAILY Anxiety 04/28/23 07/16/23 release 24 hr albuterol sulfate 90 mcg/actuation See Rx Instructions .Route .COMPLEX 07/16/23 07/16/23 aerosol inhaler Previous Rx's Medication Instructions Recorded buspirone 5 mg tablet See Rx Instructions .Route 07/09/23 .COMPLEX #60 tabs pgkpkvvykfevxbi-qwwpqpiwengwiup-OW 10 ml PO Q6H PRN cold symptoms 07/16/23 2 mg-30 mg-10 mg/5 mL oral syrup #200 mL (Bromfed DM) Allergies Allergy/AdvReac Type Severity Reaction Status Date / Time No Known Allergies Allergy Verified 07/16/23 14:30 Worker's Comp Is this a Worker's Comp case?: No [facility] Disclaimer: The information contained in this section may have been updated after the patient was seen, as this information can be updated by other users. Medical History Anxiety Social History Smoking Status: Current every day smoker tobacco type: e-cigarettes second hand exposure: No alcohol intake: never substance use type: denies use current occupational status: employed Travel in the last 8 weeks: None household members: family housing: house ROS Obtained: Yes All systems reviewed & no additional complaints except as documented Constitutional Constitutional: Reports system reviewed and no additional complaints, except as documented, Reports headache(s) and Reports malaise Eyes Eyes: Reports system reviewed and no additional complaints, except as documented ENT Ears, Nose, Mouth, and Throat: Reports system reviewed and no additional complaints, except as documented, Reports headache(s), Reports nasal congestion and Reports nasal discharge Cardiova
[2023-07-16 15:00] VITALS: BP 129/84; PULSE 91; RESP 18; TEMP 37.1; O2SAT 98
== END 2023-07-16 15:07 | disposition home or self-care (01) ==
PROVIDERS: Emergency Provider Nurse Practitioner; PCP Physician Assistant
DX: R51.9 Headache, unspecified (principal); M54.59 Other low back pain; M54.2 Cervicalgia; R09.81 Nasal congestion; R05.9 Cough, unspecified; M79.18 Myalgia, other site; R53.81 Other malaise; F17.290 Nicotine dependence, other tobacco product, uncomplicated; J06.9 Acute upper respiratory infection, unspecified
CPT/HCPCS: 81003; 87635; 87804; 99212; 99214; G0463

== ENCOUNTER 2023-08-30 23:02 | Outpatient (CLI) | payer BC, SELFPAY ==
[2023-08-30 18:15] LABS: Basophils # 0.1 K/mm3 (0-0.2); Basophils % 0.8 % (0.1-2.0); Eosinophils # 0.1 K/mm3 (0.0-0.4); Eosinophils % 0.6 % (0.1-12.0); Hematocrit 40.5 % (37.0-47.0); Hemoglobin 14.1 g/dL (12.2-16.2); Lymphocytes # 2.3 K/mm3 (0.7-4.5); Lymphocytes % 27.2 % (10-50); Mean Corpuscular HGB Conc 34.8 g/dL (31.8-35.4); Mean Corpuscular Hemoglobin 30.9 pg (27.0-31.2); Mean Platelet Volume 8.2 fl (7.4-10.4); Monocytes # 0.6 K/mm3 (0.1-1.0); Monocytes % 7.5 % (1.7-9.3); Neutrophils # 5.3 K/mm3 (1.8-7.8); Neutrophils % 63.8 % (37.0-80.0); Platelet Count 327 K/mm3 (142-424); Red Blood Count 4.55 M/mm3 (4.20-5.40); Red Cell Distribution Width 13.3 % (11.5-17.5); White Blood Count 8.4 K/mm3 (4.8-10.8)
[2023-08-30 18:28] LABS: 25-OH Vitamin D, Total 25.1 ng/mL (30-100)
[2023-08-30 19:53] LABS: Alanine Aminotransferase 27 U/L (12-78); Albumin Level 4.5 g/dl (3.5-5.0); Albumin/Globulin Ratio 1.6 (1.1-1.8); Alkaline Phosphatase 70 U/L (38-126); Anion Gap 14.1 mEq/L (5-15); Aspartate Amino Transferase 28 U/L (14-36); Bilirubin,Total 0.3 mg/dl (0.2-1.3); Blood Urea Nitrogen 14 mg/dl (7-17); Calcium 9.5 mg/dl (8.4-10.2); Carbon Dioxide 22 mmol/L (22.0-30.0); Chloride 107 mmol/L (98-107); Chol/HDL Ratio 4.8 (1-3.5); Cholesterol 226 mg/dl (140-200); Estimated Glomerular Filt Rate 87 ml/min (>60); GFR (African American) 105 ML/MIN (>60); Globulin 2.9 g/dL (1.3-3.2); Glucose 72 mg/dl (74-100); HDL Cholesterol 47 mg/dl (40-60); Potassium 4.1 mmoL/L (3.5-5.1); Sodium 139 mmol/L (136-145); Total Protein,Serum 7.4 g/dl (6.3-8.2); Triglycerides 173 mg/dl (30-150); VLDL Cholesterol 35 mg/dL (0-40)
[2023-08-30 20:04] LABS: Direct LDL Cholesterol 131.09 mg/dL (100-129)
[2023-08-30 20:24] LABS: Thyroid Stimulating Hormone 1.11 uIU/mL (0.465-4.68)
== END 2023-08-30 23:59 ==
LOC: LAB.DROPOF 23:02
PROVIDERS: PCP Family Medicine; Visit Provider Family Medicine
DX: R53.83 Other fatigue (principal); E55.9 Vitamin D deficiency, unspecified; Z68.31 Body mass index [BMI] 31.0-31.9, adult
CPT/HCPCS: 80053; 80061; 82306; 83036; 84443; 85025

== ENCOUNTER 2023-10-02 14:47 | Emergency (ER) | payer BC, SELFPAY ==
[2023-10-02 15:10] VITALS: BP 130/82; PULSE 87; RESP 22; TEMP 37; O2SAT 97; BMI 32.3
--- NOTE | 2023-10-02 15:30 | ED_ITS ---
Discharge Plan Disposition Patient Disposition: Home, Self-Care Condition: Good Prescriptions Prescriptions: New amoxicillin 500 mg capsule 500 mg PO Q8H 7 Days Qty: 21 0RF No Action venlafaxine 75 mg capsule,extended release 24hr 75 mg PO DAILY Qty: 90 0RF Rx Instructions: Take 1 capsule by mouth once daily cholecalciferol (vitamin D3) 1,250 mcg (50,000 unit) capsule 1,250 mcg PO WEEKLY Qty: 12 0RF ezetimibe [Zetia] 10 mg tablet 10 mg PO DAILY Qty: 30 2RF buspirone 5 mg tablet 5 mg PO BID Rx Instructions: Take 1 tablet by mouth twice daily Referrals Follow up/Referrals: Shaista Silva PA [Primary Care Provider] - See instructions Activity Restrictions/Add. Instructions Additional Instructions/Restrictions: *Monitor Temp, Over the counter Motrin or Tylenol as directed/as needed Tylenol every 4 hours and Motrin every 6 hours (as long as your family doctor has told you that you can take it) for fever or pain. and straight to ER if unable to lower temp less than 101.0 after medication given *Warm salt water gargles may help to soothe the throat *Throat Lozenges? *Warm fluids like tea with honey may help to soothe the throat? *Sleep elevated *Humidifier/Vaporizer *Your throat swab was sent for culture. Those results are typically sent to your primary care. Be sure to follow up in 2-3 days with your family doctor/primary care physician if no improvement so they can review those result and treat if necessary. If you don?t have a primary care doctor, I recommend you get one but in the mean time, you will have to return to a walk in clinic Follow up IMMEDIATELY for new or worsening symptoms or no Noticeable improvement over the next 48-72 hours. 911 for difficulty breathing or swallowing You were tested for today for Upper Respiratory Panel with COVID19 your test result should be back in the next 24hours, you may check your results on the [facility] [employer] [facility] Portal Clinical Impressions Clinical Impression: Otitis media Instructions Patient Instructions: Sore Throat, Middle Ear Infection Discharge ED Provider: Katy Ortega [facility] [place] HPI General Stated complaint: weak, body aches Mode of Arrival: Ambulatory Source of Information: Patient Limitations: No Limitations Time Seen by Provider: 10/02/23 15:31 Description of Symptoms (Recalled from Triage Doc. by RN): PATIENT C/O PRESSURE IN EARS, HEADACHE, DIZZINESS, FATIGUE, AND WEAKNESS. HEENT Symptoms (Recalled from RN notes): Yes Resp Symptoms (Recalled from RN notes): No Skin Symptoms (Recalled from RN notes): No MS Symptoms (Recalled from RN notes): No Functional Status (Recalled from RN notes): WNL History of Present Illness Provider Complaint: Patient states that she started feeling bad last night with body aches, fatigue, feeling achy and weak, pressure in her ears and sinuses and over all not feeling well States her daughter was sick last week with a virus but didnt last long, states today she wasnt feeling any better so she came in to get checked Related Data Home Medications Medication Instructions Recorded Confirmed buspirone 5 mg tablet 5 mg PO BID 10/02/23 10/02/23 Previous Rx's Medication Instructions Recorded venlafaxine 75 mg capsule,extended 75 mg PO DAILY Anxiety #90 caps 07/19/23 release 24 hr cholecalciferol (vitamin D3) 1,250 1,250 mcg PO WEEKLY Vitamin D 09/02/23 mcg (50,000 unit) capsule deficiency #12 caps ezetimibe 10 mg tablet (Zetia) 10 mg PO DAILY #30 tabs 09/30/23 amoxicillin 500 mg capsule 500 mg PO Q8H 7 days #21 caps 10/02/23 Allergies Allergy/AdvReac Type Severity Reaction Status Date / Time No Known Allergies Allergy Verified 09/16/23 14:16 Worker's Comp Is this a Worker's Comp case?: No [facility] Disclaimer: The information contained in this section may have been updated after the patient was seen, as this information can be updated by other users. Medical History Anxiety Colitis Depression Migraine Surgical History No significant past surgical history Family History Family/Other No significant family history Social History Smoking Status: Current every day smoker tobacco type: e-cigarettes second hand exposure: No alcohol intake: never substance use type: denies use current occupational status: employed Travel in the last 8 weeks: None household members: family housing: house ROS Obtained: Yes All systems reviewed & no additional complaints except as documented and Yes Systems reviewed as appropriate & no additional complaints except as documented Constitutional Constitutional: Reports system reviewed and no additional complaints, except as documented, Reports as per HPI, Reports body ache, Reports chills, Reports fatigue and Reports headache(s) ENT Ears, Nose, Mouth, and Throat: Reports system reviewed and no additional complaints, except as documented, Reports as per HPI, Reports otalgia, Reports headache(s), Reports nasal congestion and Reports sinus pressure Cardiovascular Cardiovascular: Reports system reviewed and no additional complaints, except as documented and Reports as per HPI Respiratory Respiratory: Reports system reviewed and no additional complaints, except as documented and Reports as per HPI Gastrointestinal Gastrointestingal: Reports system reviewed and no additional complaints, except as documented and as per HPI Neurologic Neurologic: Reports headache(s) Endocrine Endocrine: Reports fatigue Physical Exam General General appearance: alert and in no apparent distress ENT ENT exam: Present mucous membranes moist Expanded ENT Exam TM/Canal exam: Left TM: erythema and bulging Nose exam: Absent sinus tenderness Throat exam: Present normal inspection Respiratory Respiratory exam: Present normal lung sounds bilaterally; Absent respiratory distress or wheezes Cardiovascular Cardiovascular exam: Present regular rate, normal rhythm and normal heart sounds Abdominal Exam Abdominal exam: Present soft and normal bowel sounds; Absent distention or tenderness Neurological Exam Neurological exam: Present alert, oriented X3 and normal gait Medical Decision Making Sunny Inquiry Pt receiving controlled substance: No Sunny was queried for this patient: No Vital Signs: 10/02/23 15:10 Temperature 98.6 F Temperature Source Oral Pulse Rate [Left Brachial] 87 Respiratory Rate 22 Blood Pressure [Left Arm] 130/82 Blood Pressure Mean [Left Arm] 98 Blood Pressure Source [Left Arm] Automatic Cuff Blood Pressure Position [Left Arm] Sitting 02 Sat by Pulse Oximetry 97 Oxygen Delivery Method Room Air Lab Data Lab results reviewed: Yes I reviewed the patient's lab results.
[2023-10-02 15:31] LABS: UTC Influenza A Antigen Negative (Negative); UTC Influenza B Antigen Negative (Negative); UTC Strep Screen (Rapid) Negative (Negative)
[2023-10-02 15:33] VITALS: BP 130/82; PULSE 87; RESP 22; TEMP 37; O2SAT 97
[2023-10-02 15:57] LABS: Adenovirus,PCR Not Detected (NotDetected); Coronavirus 19, PCR Not Detected (NotDetected); Coronavirus 229E Not Detected (NotDetected); Coronavirus NL63 Not Detected (NotDetected); Coronavirus OC43 Not Detected (NotDetected); Coronovirus HKU1,PCR Not Detected (NotDetected); Human Metapneumovirus Not Detected (NotDetected); Influenza A, PCR Not Detected (NotDetected); Influenza AH1, 2009 Not Detected (NotDetected); Influenza AH1, PCR Not Detected (NotDetected); Influenza AH3,PCR Not Detected (NotDetected); Influenza B, PCR Not Detected (NotDetected); Parainfluenza 1, PCR Not Detected (NotDetected); Parainfluenza 2, PCR Not Detected (NotDetected); Parainfluenza 3, PCR Not Detected (NotDetected); Parainfluenza 4, PCR Not Detected (NotDetected); Respiratory Syncytial Virus Not Detected (NotDetected); Rhinovirus/Enterovirus Not Detected (NotDetected)
== END 2023-10-02 15:55 | disposition home or self-care (01) ==
PROVIDERS: Emergency Provider Nurse Practitioner; PCP Physician Assistant
DX: H66.92 Otitis media, unspecified, left ear (principal); R51.9 Headache, unspecified; R09.81 Nasal congestion; R53.83 Other fatigue; M79.18 Myalgia, other site; F17.290 Nicotine dependence, other tobacco product, uncomplicated
CPT/HCPCS: 87632; 87635; 87804; 87880; 99212; 99214; G0463

== ENCOUNTER 2024-01-15 16:55 | Emergency (ER) | payer BC, SELFPAY ==
[2024-01-15 17:00] VITALS: BP 123/83; PULSE 93; RESP 20; TEMP 36.7; O2SAT 99; BMI 33.5
--- NOTE | 2024-01-15 17:09 | EXP.UTC ---
Discharge Plan Disposition Patient Disposition: Home, Self-Care Condition: Good Prescriptions Prescriptions: New methylprednisolone 4 mg Tablets,Dose Pack 4 mg PO DIRECTED 6 Days Qty: 21 0RF Rx Instructions: Take 1 pack as directed for 6 days [id number] [Bromfed DM] 2-30-10 mg/5 mL Syrup 5 ml PO Q6H PRN (Reason: Cough) Qty: 240 0RF cefdinir 300 mg capsule 300 mg PO BID Qty: 20 0RF No Action cetirizine [Zyrtec] 10 mg tablet 10 mg PO DAILY PRN (Reason: allergy symptoms) Qty: 30 2RF buspirone 5 mg tablet 15 mg PO BID Rx Instructions: Take 1 tablet by mouth twice daily lamotrigine 25 mg tablet 25 mg PO DAILY Patient Comments: TAKE 1 TABLET BY MOUTH ONCE DAILY Referrals Follow up/Referrals: Shaista Silva PA [Primary Care Provider] - See instructions Activity Restrictions/Add. Instructions Additional Instructions/Restrictions: Drink plenty of fluids. Take tylenol or ibuprofen for pain or fever. Take the medications as directed. Follow up with your regular doctor. GO TO THE ER FOR ANY WORSENING SYMPTOMS Don't start the oral steroids (medrol dose pack) until tomorrow since you had the shot her Clinical Impressions Clinical Impression: Otitis media Instructions Patient Instructions: Middle Ear Infection Discharge ED Provider: Estrada Elliott [facility] General Stated complaint: bilateral pain, dizzy Mode of Arrival: Ambulatory Source of Information: Patient Limitations: No Limitations Time Seen by Provider: 01/15/24 17:09 Description of Symptoms (Recalled from Triage Doc. by RN): PATIENT C/O EAR PAIN, DIZZINESS, AND NAUSEA THAT STARTED THIS PAST SATURDAY. SHE STATES SHE WAS TREATED FOR AN EAR INFECTION WITH AMOXICILLIN AND FINISHED IT TODAY, BUT STATES HER SYMPTOMS ARE NOT BETTER HEENT Symptoms (Recalled from RN notes): Yes Resp Symptoms (Recalled from RN notes): No Skin Symptoms (Recalled from RN notes): No MS Symptoms (Recalled from RN notes): No Functional Status (Recalled from RN notes): WNL Related Data Home Medications Medication Instructions Recorded Confirmed buspirone 5 mg tablet 15 mg PO BID 12/02/23 01/15/24 lamotrigine 25 mg tablet 25 mg PO DAILY 01/15/24 01/15/24 Previous Rx's Medication Instructions Recorded cetirizine 10 mg tablet (Zyrtec) 10 mg PO DAILY PRN allergy 10/30/23 symptoms #30 tabs [id number]-[id number] 5 ml PO Q6H PRN Cough #240 mL 01/15/24 2 mg-30 mg-10 mg/5 mL oral syrup (Bromfed DM) cefdinir 300 mg capsule 300 mg PO BID #20 caps 01/15/24 methylprednisolone 4 mg tablets in 4 mg PO DIRECTED 6 days #21 tabs 01/15/24 a dose pack Allergies Allergy/AdvReac Type Severity Reaction Status Date / Time No Known Allergies Allergy Verified 12/02/23 15:59 Worker's Comp Is this a Worker's Comp case?: No [facility] Disclaimer: The information contained in this section may have been updated after the patient was seen, as this information can be updated by other users. Medical History Colitis Depression Migraine Anxiety Surgical History No significant past surgical history Family History Family/Other No significant family history Social History Smoking Status: Current every day smoker tobacco type: e-cigarettes second hand exposure: No alcohol intake: never substance use type: denies use current occupational status: employed Travel in the last 8 weeks: None household members: family housing: house ROS Obtained: Yes All systems reviewed & no additional complaints except as documented Constitutional Constitutional: Denies chills, Reports fever(s) and Reports poor appetite Eyes Eyes: Denies eye discharge ENT Ears, Nose, Mouth, and Throat: Denies ear discharge, Reports otalgia, Denies hearing loss, Denies sinus pain and Reports sore throat Cardiovascular Cardiovascular: Denies chest pain and Denies dyspnea Respiratory Respiratory: Denies chest congestion, Reports cough and Denies dyspnea Gastrointestinal Gastrointestingal: Denies abdominal pain, diarrhea, nausea or vomiting Musculoskeletal Musculoskeletal: Denies arthralgias Integumentary/Breasts Skin/Breast: Denies rash Physical Exam General General appearance: alert and in no apparent distress Head Head exam: atraumatic, normocephalic and normal inspection Eye Eye exam: Present normal appearance; Absent PERRL or EOMI ENT ENT exam: Present mucous membranes moist and normal external ear exam Expanded ENT Exam TM/Canal exam: Bilateral TM: erythema, bulging and effusion Nose exam: Absent sinus tenderness Nasal speculum exam: Bilateral: normal Mouth exam: Present normal external inspection and other; Absent drooling Teeth exam: Present normal inspection Throat exam: Present tonsillar erythema and tonsillomegaly Neck Neck exam: Present normal inspection, full ROM and trachea midline; Absent tenderness, meningismus or lymphadenopathy Chest Chest inspection: Present normal inspection and symmetric chest wall rise; Absent tenderness Respiratory Respiratory exam: Present normal lung sounds bilaterally; Absent respiratory distress, wheezes or stridor Cardiovascular Cardiovascular exam: Present regular rate, normal rhythm and normal heart sounds; Absent tachycardia or irregular rhythm Abdominal Exam Abdominal exam: Present soft and normal bowel sounds; Absent distention, tenderness, guarding, rebound or rigidity Extremities Exam Extremities exam: Present normal inspection and normal capillary refill; Absent tenderness, joint swelling or calf tenderness Back Exam Back exam: Present normal inspection and full ROM; Absent tenderness, CVA tenderness (R) or CVA tenderness (L) Neurological Exam Neurological exam: Present alert, oriented X3, CN II-XII intact, normal gait and reflexes normal; Absent motor sensory deficit Psychiatric Psychiatric exam: Present normal affect and normal mood Skin Skin exam: Present warm, dry, intact and normal color Lymphatic Lymphatic Findings: no adenopathy Medical Decision Making Medical Records Medical records reviewed: No I reviewed the patient's medical records. Sunny Inquiry Pt receiving controlled substance: No Vital Signs: 01/15/24 17:00 Temperature 98.0 F Temperature Source Oral Pulse Rate [Left Brachial] 93 H Respiratory Rate 20 Blood Pressure [Left Arm] 123/83 Blood Pressure Mean [Left Arm] 96 Blood Pressure Source [Left Arm] Automatic Cuff Blood Pressure Position [Left Arm] Sitting 02 Sat by Pulse Oximetry 99 Oxygen Delivery Method Room Air
[2024-01-15] MEDS: DEXAMETHASONE 4MG/ML 1ML VIAL 8 MG IM (17:21)
[2024-01-15 17:33] VITALS: BP 123/83; PULSE 93; RESP 20; TEMP 36.7; O2SAT 99
== END 2024-01-15 17:34 | disposition home or self-care (01) ==
PROVIDERS: Emergency Provider Nurse Practitioner Family; PCP Physician Assistant
DX: H66.93 Otitis media, unspecified, bilateral (principal); R42 Dizziness and giddiness; R11.0 Nausea; H92.03 Otalgia, bilateral; F17.290 Nicotine dependence, other tobacco product, uncomplicated
CPT/HCPCS: 96372; 99212; 99214; G0463; J1100

== ENCOUNTER 2024-12-05 09:02 | Outpatient (CLI) | payer OTHER, SELFPAY ==
--- OUTSIDE RECORDS SUMMARY | 2024-12-07 09:35 | XMS_ITS | Data Portability ---
Author Organization [place] - [facility], Chika Ulrich Address [address] [place] [address] Assessment Encounter Date Assessment Date Assessment LastModified by Organization Details LastModified Time 05/13/2023 05/13/2023 This visit was completed via phone. Patient has provided consent per state regulations. Instructed to call MH for any questions or concerns. Seek immediate care if with worsening or persistent symptoms. [email or web address] Not available 05/13/2023 13:25:46 Plan of Treatment Reminders Order Date Submit Date Provider Last Modified By Organization Details Last Modified Time Details Appointments None recorded. Lab CBC w/ auto diff - Service Code #[id number] 2022 023 [facility], [address] [place], [address], 3 06:39:07 vitamin D, 25-hydroxy , total, serum - Service Code #[id number] 2022 023 [facility], [address] [place], [address], 3 06:39:08 ferritin, serum or plasma - service code #457 2022 023 [facility], [address] [place], [address], 3 06:39:08 iron + total iron-clementina ng capacity (TIBC), serum - Service Code #7573 2022 023 [facility], [address] [place], [address], 06:39:08 CMP, serum or plasma - Service Code #[id number] 2022 023 [facility], [address] [place], [address], 06:39:07 HbA1c (hemoglobi n A1c), blood 2022 [facility], [address] [place], [address], 06:39:07 TSH, serum or plasma - Service Code #[id number] 2022 [facility], [address] [place], [address], 06:39:07 lipid panel, serum - Service Code #[id number] 2022 [facility], [address] [place], [address], 06:39:07 Referral None recorded. Procedures None recorded. Surgeries None recorded. Imaging None recorded. Medication Orders None recorded. Patient TargetsNo targets recorded. Patient Instructions Encounter Date Encounter Id Patient Instructions Last Modified By Organization Details Last Modified Time 05/13/2023 [id number] Please go to you r local urgent care today Shanda to address the vaginal bleeding, then follow-up. To reach us, you can call us at . You can also send us a message via the portal for non-urgent concerns. [email or web address] Not available 05/13/2023 13:30:41 Reason for Referral None Reported. Problems Name Problem SNOMED Code Status Onset Date Resolution Date Notes Provider Name and Address Organization Details Recorded Time Loss of hair 405915801 Active Karina Jennings MD [address], [place], [address], [facility] 3 13:09:22 Abnormal vaginal bleeding 653943787 Active 023 Karina Jennings MD [address], [facility] [place], [address], [facility] 3 13:09:29 Increased body mass index 14510760 Active 023 Karina Jennings MD [address], [place], [address], [facility] 3 13:09:34 Problem Notes None recorded. Procedures Surgical History Date Name Laterality Status Provider Name and Address Organization Details Recorded Time 1 section completed Carmel Dalton RN [address], [place], [address] [place] [address], [facility] 05/13/2023 12:52:29 9 Caesarean Section completed Carmel Dalton RN [address], [place], [address] [place] [address], [facility] 05/13/2023 12:45:56 Tonsillectomy/ adenoids completed Carmel Dalton RN [address], [place], [address] [place] [address], [facility] 05/13/2023 12:45:56 Ear Tube completed Carmel Dalton RN [address], [place], [address] [place] [address], [facility] 05/13/2023 12:45:56 Hernia Repair completed Carmel Dalton RN [address], [place], [address] [place] [address], [facility] 05/13/2023 12:45:56 Imaging Results None recorded. Procedure Notes None recorded. Medical Equipment None Reported. Allergies No known drug allergies Medications Name Sig Start Date Stop Date Status Note LastModified by Organization Details LastModified Time buspirone 5 mg tablet TAKE 1 TABLET BY MOUTH TWICE DAILY active Not Available Not Available No t Available venlafaxin e ER 75 mg capsule,ex tended release 24 hr TAKE 1 CAPSULE BY MOUTH ONCE DAILY FOR ANXIETY active Not Available Not Available No t Available ketoconazo le 2 % shampoo USE TO SHAMPOO TO THE SCALP AND FACE THREE TIMES A WEEK ALTERNATI NG WITH HEAD AND SHOULDERS . LEAVE IN 5 MINUTES AND THEN RINSE. active Not Available Not Available No t Available cetirizine 10 mg tablet TAKE 1 TABLET BY MOUTH ONCE DAILY NEEDED FOR ALLERGIES active Not Available Not Available No t Available azithromyc in 250 mg tablet TAKE 2 TABLETS BY MOUTH ON DAY 1, AND THEN TAKE 1 TABLET BY MOUTH ONCE A DAY ON DAY 2 THROUGH DAY 5 active Not Available Not Available No t Available valacyclov ir 1 gram tablet TAKE 1 TABLET BY MOUTH TWICE DAILY NEEDED FOR COLD SORES active Not Available Not Available No t Available promethazi ne 12.5 mg tablet TAKE 1 TABLET BY MOUTH EVERY 6 HOURS NEEDED FOR SEDATION 05/13 completed Not Available Not Available Not Available phenazopyr idine 200 mg tablet TAKE 1 TABLET BY MOUTH THREE TIMES DAILY 05/13 completed Not Available Not Available Not Available ondansetro n HCl 4 mg tablet TAKE 1 TABLET BY MOUTH EVERY 8 HOURS NEEDED FOR NAUSEA AND VOMITING 05/13 completed Not Available Not Available Not Available phentermin e 37.5 mg tablet TAKE 1 TABLET BY MOUTH MUST ADMINISTE R 30 MINUTES BEFORE OR 1-2 HOURS AFTER BREAKFAST ONCE DAILY 05/13 completed Not Available Not Available Not Available fexofenadi ne 180 mg tablet TAKE 1 TABLET BY MOUTH ONCE DAILY active Not Available Not Available No t Available amoxicilli n 875 mg tablet 05/13 completed Not Available Not Available Not Available benzonatat e 100 mg capsule TAKE 1 CAPSULE BY MOUTH EVERY 8 HOURS NEEDED 05/13 completed Not Available Not Available Not Available cephalexin 500 mg capsule TAKE 1 CAPSULE BY MOUTH 4 TIMES DAILY FOR 7 DAYS 05/13 completed Not Available Not Available Not Available buspirone 7.5 mg tablet TAKE 1 TABLET BY MOUTH THREE TIMES DAILY active takes 1-2 a day Not Available Not Available Not Available methylpred nisolone 4 mg tablets in a dose pack TAKE DIRECTED 05/13 completed Not Available Not Available Not Available albuterol sulfate HFA 90 mcg/actuat ion aerosol inhaler INHALE 2 PUFFS BY MOUTH EVERY 4 HOURS NEEDED 05/13 completed Not Available Not Available Not Available hydrocorti sone 2.5 % topical ointment APPLY TOPICALLY TO AFFECTED AREAS ON FACE TWICE DAILY NEEDED, THEN TAKE A 1 WEEK BREAK. REPEAT NEEDED active Not Available Not Available No t Available ketoconazo le 2 % topical cream APPLY CREAM TOPICALLY TO AFFECTED AREA ON NOSE TWICE DAILY UNTIL RESOLVED active Not Available Not Available No t Available bromphenir amine-pseu doephedrin e-DM 2 mg-30 mg-10 mg/5 mL oral syrup TAKE 10 ML BY MOUTH EVERY 6 HOURS NEEDED FOR COLD SYMPTOMS active Not Available Not Available No t Available clobetasol 0.05 % scalp solution APPLY SOLUTION TOPICALLY TO FLAKY PATCHES ON SCALP ONCE DAILY active Not Available Not Available No t Available ondansetro n 4 mg disintegra ting tablet DISSOLVE 1 TABLET IN MOUTH EVERY 8 HOURS NEEDED FOR NAUSEA AND VOMITING FOR 4 DAYS 05/13 completed Not Available Not Available Not Available fluticason e propionate 50 mcg/actuat ion nasal spray,susp ension USE 1 SPRAY(S) IN EACH NOSTRIL ONCE DAILY active Not Available Not Available No t Available dicyclomin e 10 mg capsule TAKE 1 CAPSULE BY MOUTH THREE TIMES DAILY NEEDED FOR CRAMPS 05/13 completed Not Available Not Available Not Available amoxicilli n 875 mg-potassi um clavulanat e 125 mg tablet TAKE 1 TABLET BY MOUTH TWICE DAILY 05/13 completed Not Available Not Available Not Available escitalopr am 20 mg tablet TAKE 1 TABLET BY MOUTH ONCE DAILY 05/13 completed Not Available Not Available Not Available lidocaine- hydrocorti sone-aloe vera 3 %-2.5 % (7 gram) rectal kit APPLY GEL RECTALLY TWICE DAILY NEEDED FOR PAIN 05/13 completed Not Available Not Available Not Available Mucus Relief ER 600 mg tablet, extended release TAKE 1 TABLET BY MOUTH TWICE DAILY FOR 10 DAYS 05/13 completed Not Available Not Available Not Available vilazodone 20 mg tablet TAKE 1 TABLET BY MOUTH ONCE DAILY WITH A MEAL/FOOD 05/13 completed Not Available Not Available Not Available Vitals Date Recorded Body height Body mass index (BMI) Body weight Systolic blood pressure Diastolic blood pressure Provider Name and Address Organization Details Last Updated DateTime 05/13/2023 152.4 cm 31.1 kg/m2 68822.19 g 117 mm[Hg] 60 mm[Hg] Carmel Dalton RN [address], [place], [address], [place] - [facility] 3 12:50:39 Social History Question Answer Notes LastModified by Organizat ion Details LastModified Time Tobacco Smoking Status Former Smoker Carmel Dalton RN [address], [place], [address], [place] [facility] 05/13/2023 12:45:49 What Is Your Level Of Caffeine Consumption? Moderate Information not available 05/13/2023 What Is The Highest Grade Or Level Of School You Have Completed Or The Highest Degree You Have Received? [id number] Information not available 05/13/2023 Cigar Smoking No Information not available 05/13/2023 Does Anyone Insult Or Talk Down To You? Never Information not available 05/13/2023 Does Anyone Physically Hurt You At Home? Never Information not available 05/13/2023 Lives With My And Two Children Information not available 05/13/2023 Sleep Habits Try To Go To Sleep By 13 And Young Children Still Getting Me Up One To Two Times A Night. Information not available 05/13/2023 GENERAL HEALTH -- In General, I Describe My Health As: Excellent [email or web address] Information not available 05/10/2023 GENERAL HEALTH -- Currently, How Would You Rate Your Quality Of Life? Excellent [email or web address] Information not available 05/10/2023 PURPOSE -- For The Most Part, I Am Satisfied With The Balance Between My Work Life And Personal Life. Agree [email or web address] Information not available 05/10/2023 PURPOSE -- In Most Ways My Life Is Close To My [place]. 6 - Agree [email or web address] Information not available 05/10/2023 PURPOSE -- The Conditions Of My Life Are Excellent. 6 - Agree [email or web address] Information not available 05/10/2023 PURPOSE -- I Am Satisfied With My Life. 6 - Agree [email or web address] Information not available 05/10/2023 PURPOSE -- So Far I Have Gotten The Important Things I Want In Life. 6 - Agree [email or web address] Information not available 05/10/2023 PURPOSE -- If I Could Live My Life Over, I Would Change Almost Nothing. 6 - Agree [email or web address] Information not available 05/10/2023 STRESS -- In The Last Month, How Often Have You Been Upset Because Of Something That Happened Unexpectedly? 3 - Fairly Often [email or web address] Information not available 05/10/2023 STRESS -- In The Last Month, How Often Have You [place] That You Were Unable To Control The Important Things In Your Life? 2 - Sometimes [email or web address] Information not available 05/10/2023 STRESS -- In The Last Month, How Often Have You [place] Nervous And Stressed? 3 - Fairly Often [email or web address] Information not available 05/10/2023 STRESS -- In The Last Month, How Often Have You [place] Confident About Your Ability To Handle Your Personal Problems? 3 - Fairly Often [email or web address] Information not available 05/10/2023 STRESS -- In The Last Month, How Often Have You [place] That Things Were Going Your Way? 2 - Sometimes [email or web address] Information not available 05/10/2023 STRESS -- In The Last Month, How Often Have You Found That You Could Not [place] With All The Things That You Had To Do? 2 - Sometimes [email or web address] Information not available 05/10/2023 STRESS -- In The Last Month, How Often Have You Been Able To Control Irritations In Your Life? 3 - Fairly Often [email or web address] Information not available 05/10/2023 STRESS -- In The Last Month, How Often Have You [place] That You Were On Top Of Things? 2 - Sometimes [email or web address] Information not available 05/10/2023 STRESS -- In The Last Month, How Often Have You Been Angered Because Of Things That Happened That Were Outside Of Your Control? 2 - Sometimes [email or web address] Information not available 05/10/2023 STRESS -- In The Last Month, How Often Have You [place] Difficulties Were Piling Up So High That You Could Not Overcome Them? 2 - Sometimes [email or web address] Information not available 05/10/2023 SLEEP -- Select All That Apply Regarding Your Sleep I Have A Hard Time Falling Asleep Or Staying Asleep, I Have Been Told Or Know That I Snore [email or web address] Information not available 05/10/2023 SLEEP -- How Many Hours Of Sleep Do You Get On Average Each Night? 5 Hours Or Less [email or web address] Information not available 05/10/2023 SLEEP -- I Usually Wake Up Feeling Rested. Disagree [email or web address] Information not available 05/10/2023 Nutrition -- What Is The Average Number Of Times Per Week You Dine Out Including In Restaurant, Carry Out, Or Food Delivery? 2 To 3 [email or web address] Information not available 05/10/2023 Nutrition -- On Average, How Many 8 Oz. Glasses Of Water Do You Drink Each Day? 1 To 2 [email or web address] Information not available 05/10/2023 Nutrition -- How Often Do You Consume Sugary Food/drinks? Examples Are Dessert, Candy Or Sweetened Drinks (juice, Sweetened Coffee, Soda) 4-5 Days A Week [email or web address] Information not available 05/10/2023 Nutrition -- How Often Do You Eat 5 Or More Fruits/vegetable Servings A Day? 2-3 Days A Week [email or web address] Information not available 05/10/2023 Physical Activity -- How Often Do You Exercise? I Do Not Regularly Exercise [email or web address] Information not available 05/10/2023 Physical Activity -- On Average, How Many Minutes Do You Spend Doing Aerobic Exercise Weekly (walking, Running, Biking, And Other Aerobic Activities)? I Do Not Regularly Exercise [email or web address] Information not available 05/10/2023 Physical Activity -- On Average, How Many Times A Week Do You Do Resistance Or Strengthening Exercises? I Do Not Regularly Engage In Strength Training [email or web address] Information not available 05/10/2023 Physical Activity -- How Many Days A Week Do You Do Stretching Exercises? I Do Not Typically Do Any Stretching Training [email or web address] Information not available 05/10/2023 Tobacco -- Please Indicate The Statement That Fits Your Current Use Of Tobacco (cigarettes, Ecigarettes/vapin g, Smokeless Tobacco, Cigars, Pipes, Light Cigarettes)? I Quit Using Tobacco More Than 12 Months Ago [email or web address] Information not available 05/10/2023 Tobacco -- If You Currently Use Tobacco, On Average; How Many Cigarettes, Cigars, Etc. Per Day? 0 [email or web address] Information not available 05/10/2023 TOBACCO -- If You Use Tobacco, How Long Have You Been Using Tobacco? (in Years) 0 [email or web address] Information not available 05/10/2023 RISK BEHAVIOR -- How Often Do You Wear A Seat Belt In A Motor Vehicle? Always [email or web address] Information not available 05/10/2023 RISK BEHAVIOR -- Do You Have A Smoke Detector In Your Home? Yes [email or web address] Information not available 05/10/2023 RISK BEHAVIOR -- Do You Have A Carbon Monoxide Detector In Your Home? Yes [email or web address] Information not available 05/10/2023 RISK BEHAVIOR -- How Often Do You Protect Your Skin From Sun Exposure When Outside (for Example, Sunscreen With A SPF 15 Or Higher And/or Protective Clothing)? Most Of The Time [email or web address] Information not available 05/10/2023 RISK BEHAVIOR -- How Often Do You Have A Drink Containing Alcohol? Monthly Or Less [email or web address] Information not available 05/10/2023 RISK BEHAVIOR -- How Many Drinks Containing Alcohol Do You Have On A Typical Day When You Are Drinking? 1 Or 2 [email or web address] Information not available 05/10/2023 RISK BEHAVIOR -- In The Past Year, How Often Have You Used An Illegal Drug Or A Prescription Drug For A Non-medical Reason? Never [email or web address] Information not available 05/10/2023 READINESS TO CHANGE -- Improve My Overall Health Thinking About Making A Change [email or web address] Information not available 05/10/2023 READINESS TO CHANGE -- If There Was One Thing You Could Work On To Improve The Way You Feel And Function What Would You Choose My Weight [email or web address] Information not available 05/10/2023 FINANCIAL -- I Could Handle A Major Unexpected Expense 3 - Very Little [email or web address] Information not available 05/10/2023 FINANCIAL -- I Am Securing My Financial Future Somewhat [email or web address] Information not available 05/10/2023 FINANCIAL -- I Have Money Left Over At The End Of The Month 2 - Somewhat [email or web address] Information not available 05/10/2023 SOCIAL DETERMINANTS -- I Have A Close Friend, Family Member Or Support System I Can Talk To About Important Issues. Agree [email or web address] Information no t available 05/10/2023 SOCIAL DETERMINANTS -- How Often Do You Feel Lonely? Rarely [email or web address] Information not available 05/10/2023 SOCIAL DETERMINANTS -- During The Past Year, Have You Worried About The Following? Select All That Apply. Money Or Finances [email or web address] Information not available 05/10/2023 How Often Do You Have Six Or More Drinks On One Occasion? Never [email or web address] Information not available 05/10/2023 Have You Ever Served In The ?? No Information not available 05/13/2023 What Was The Date Of Your Most Recent Tobacco Screening? 05/13/2023 Information not available 05/13/2023 What Is Your Relationship Status? Information not available 05/13/2023 How Much Tobacco Do You Smoke? 1 PPW Information not available 05/13/2023 How Many Years Have You Smoked Tobacco? 2 Information not available 05/13/2023 How Many Days In The Past Year Have You Consumed 4 Or More Drinks? 2 Information no t available 05/13/2023 How Many Days In The Past Year Have You Consumed 5 Or More Drinks? 0 Information no t available 05/13/2023 Sex: Female Functional Status Question Answer Note LastModified by Organizat ion Details LastModified Time Do you or have you ever used any other forms of tobacco or nicotine? Yes Information not available 05/13/2023 What is your level of alcohol consumption? Occasional Information not available 05/13/2023 Do you or have you ever used smokeless tobacco? 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 Former user of electronic cigarettes Information not available 05/13/2023 Mental Status None recorded. Family History Relationship Description Onset Age of this Age Resolved Age Notes LastModified by Organization Details LastModified Time Mother Chronic obstructive pulmonary disease astrate Not available 2022 12:45:25 Mother Anxiety disorder astrate Not available 2022 12:45:25 Medical History Condition Response Depression Y Migraine Headaches Y Sinus Infections Y Menstrual Cycle- Painful Y Anxiety Y Anemia, iron deficient Y Allergic Rhinitis (seasonal allergies) Y Gynecological History Statement/Question Response LMP Definite Date of LMP 05/07/2023 Obstetrics History GPAL:G 0 P 0 0 0 0 Past Encounters Encounter ID Performer Location Encounter Start Date Encounter Closed Date Diagnosis/Indication Diagnosis SNOMED-CT Code Diagnosis ICD10 Code Diagnosis Note [id number] Karina Jennings MD [facility] [address] [place] [address] [place] [address] 05/13/2023 12:44:29 05/13/2023 13:17:13 Increased body mass index 38486763 E66.9 -advised health coaching-c heck labs then ff up-also discussed option for referral to a wt loss clinic-adv ised to address the abnormal vaginal bleeding as below first Loss of hair 541657768 L 65.9 -check labs after vaginal bleeding has been addressed as below, then ff up-conside r derma referral if labs are unremarkab le Abnormal v aginal bleeding 324172863 N93.9 -reports change in menstrual pattern the past 2 mos, last week was spotting then having heavy bleeding, reports faintly + preg test over the weekend-ad vised in person exam, she has a local UC that she can go to, she will go to UC today for further evaluation Health Concerns Section Related Observation LastModified by Organization Detai ls LastModified Time None Recorded Concern Status LastModified by Organization Details LastModified Time None Recorded Advance Directives Directive None Recorded Payers Insurance Date Sequence Insurance Name Policy Number Policy Bella Covered Member ID Bella Member ID Guarantor Name 08/12/2023 1 [facility] (PPO) [id number] Shanda Jaimes [id number] Shanda Jaimes Notes Date Note Type Note Provider Name and Address Organization Details Recorded Time 05/13/2023 text/html TELEPHONIC CONSULTATION Patient name, , and emergency contact verified. Patient Location -[place] Provider location - [place]. Telemedicine limitations were discussed with the patient. The patient verbally consented to consultation and treatment with telehealth today? written consent on file. Shanda would like to discuss weight loss injections and med to assist with post hair loss. Reviewed note above. Shanda is here to discuss her weight. Has heard about injection medication for wt loss. Not able to lose weight since having her kids. She has 2 kids 4y/o son and 2 y/o daughter.Had 2 CS so she thinks this might be hindering her weight loss. She has done fasting, meal preps and exercise since she recovered from her CS but still not losing weight. She also has hair loss, getting worse since her last delivery 2 yrs ago.No bald spot but seeing a lot of hair falling especially in the shower, has thinning spots on the scalp especially on the temples.She colors her hair but has been doing this for a long time with the same hair product.She tried biotin and nail and hair vit with no improvement. She feels well.Her menses has changed the past 2 mos.She started spotting last week for a week which is unusual for her, She noticed heavy bleeding since Saturday night, she did test and saw a faint positive result but not sure, there is a chance for She feels well, she is healthy. PMH- seasonal allergies, anxiety and depression- stable on Venlafaxine and buspirone 1-2 a day(has been on meds x about 6 mos). Karina Jennings MD [address], [place], [address], [place] [facility] 05/13/2023 13:35:22 OBGyn Episode No OBEpisode recorded.
== END 2024-12-05 23:59 | disposition home or self-care (01) ==
LOC: LAB.DROPOF 12-07 09:34
PROVIDERS: PCP Nurse Practitioner Family; Visit Provider Nurse Practitioner Family
DX: N39.0 Urinary tract infection, site not specified (principal)
CPT/HCPCS: 87086

== ENCOUNTER 2024-12-12 14:44 | Outpatient (CLI) | payer OTHER, SELFPAY ==
--- OUTSIDE RECORDS SUMMARY | 2024-12-14 14:47 | XMS_ITS | Data Portability ---
Author Organization [place] - [facility], Chika Ulrich Address [address] [place] [address] Assessment Encounter Date Assessment Date Assessment LastModified [...] diff - Service Code #6399 2022 023 [facility], [address] [place], [address], 3 06:39:07 vitamin D, 25-hydroxy , total, serum - Service Code #37525 2022 023 [facility], [address] [place], [address], 3 06:39:08 ferritin, serum or plasma - service code #457 2022 023 [facility], [address] [place], [address], 3 06:39:08 iron + total iron-clementina ng capacity (TIBC), serum - Service Code #7573 2022 023 [facility], [address] [place], [address], 06:39:08 CMP, serum or plasma - Service Code #95781 2022 023 [facility], [address] [place], [address], 06:39:07 HbA1c (hemoglobi n A1c), blood 2022 [facility], [address] [place], [address], 06:39:07 TSH, serum or plasma - Service Code #52350 2022 [facility], [address] [place], [address], 06:39:07 lipid panel, serum - Service Code #32908 2022 [facility], [address] [place], [address], 06:39:07 Referral None recorded. Procedures None recorded. Surgeries None recorded. Imaging None recorded. Medication Orders None recorded. Patient TargetsNo targets recorded. Patient Instructions Encounter Date Encounter Id Patient Instructions Last Modified By Organization Details Last Modified Time 05/13/2023 [id number] Please go to you r local urgent [...] Organization Details Recorded Time Loss of hair [id number] Active Karina Jennings MD [address], [place], [address], [facility] 3 13:09:22 Abnormal vaginal bleeding 861723221 Active 023 Karina Jennings MD [address], [place], [address], [facility] 3 13:09:29 Increased body mass index 77834764 Active 023 Karina Jennings MD [address], [place], [address], [facility] 3 13:09:34 Problem Notes None recorded. Procedures Surgical History Date Name Laterality Status Provider Name and Address Organization Details Recorded Time 1 section completed Carmel Dalton RN [address], [place], [address] [place] [address], [facility] 05/13/2023 12:52:29 9 Caesarean Section completed Carmel Dalton RN [address], [place], [address] [place] [address], [facility] 05/13/2023 12:45:56 Tonsillectomy/ adenoids completed Carmel Dalton RN [address], [place], [address] [place] [address], [facility] 05/13/2023 12:45:56 Ear Tube completed Carmel Dalton RN [address], [place], [address] [place] [address], [facility] 05/13/2023 12:45:56 Hernia Repair completed Carmel Dalton RN [address], [place], [address] [place] [address], [facility] 05/13/2023 12:45:56 Imaging Results None recorded. Procedure [...] Updated DateTime 05/13/2023 152.4 cm 31.1 kg/m2 07218.19 g 117 mm[Hg] 60 mm[Hg] Carmel Dalton RN [address], [place], [address], [place] - [facility] 3 12:50:39 Social History Question Answer Notes LastModified by Organizat ion Details LastModified Time Tobacco Smoking Status Former Smoker Carmel Dalton RN [address], [place], [address], [place] [facility] 05/13/2023 12:45:49 What Is Your Level Of Caffeine Consumption? Moderate Information not available 05/13/2023 What Is The Highest Grade Or Level Of School You Have Completed Or The Highest Degree You Have Received? [id number] Information not available 05/13/2023 Cigar Smoking No [...] Ways My Life Is Close To My [place]. 6 - Agree [email or web address] Information not available [...] The Last Month, How Often Have You [place] That You Were Unable To Control The Important Things In Your Life? 2 - Sometimes [email or web address] Information not available 05/10/2023 STRESS -- In The Last Month, How Often Have You [place] Nervous And Stressed? 3 - Fairly Often [email or web address] Information not available 05/10/2023 STRESS -- In The Last Month, How Often Have You [place] Confident About Your Ability To Handle Your Personal Problems? 3 - Fairly Often [email or web address] Information not available 05/10/2023 STRESS -- In The Last Month, How Often Have You [place] That Things Were Going Your Way? 2 - Sometimes [email or web address] Information not available 05/10/2023 STRESS -- In The Last Month, How Often Have You Found That You Could Not [place] With All The Things That You Had To Do? 2 - Sometimes [email or web address] Information not available 05/10/2023 STRESS -- In The Last Month, How Often Have You Been Able To Control Irritations In Your Life? 3 - Fairly Often [email or web address] Information not available 05/10/2023 STRESS -- In The Last Month, How Often Have You [place] That You Were On Top Of Things? 2 - Sometimes [email or web address] Information not available 05/10/2023 STRESS -- In The Last Month, How Often Have You Been Angered Because Of Things That Happened That Were Outside Of Your Control? 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[employer] Information not available 05/13/2023 Do you or [...] available 2022 12:45:25 Medical History Condition Response Sinus Infections Y Anxiety Y Migraine Headaches Y Menstrual Cycle- Painful Y Anemia, iron deficient Y Allergic Rhinitis (seasonal allergies) Y Depression Y Gynecological History Statement/Question Response LMP Definite Date of LMP 05/07/2023 Obstetrics History GPAL:G 0 P 0 0 0 0 Past Encounters Encounter ID Performer Location Encounter Start Date Encounter Closed Date Diagnosis/Indication Diagnosis SNOMED-CT Code Diagnosis ICD10 Code Diagnosis Note [id number] Karina Jennings MD [facility] [address] [address] [place] [address] 05/13/2023 12:44:29 05/13/2023 13:17:13 Increased body mass index 58934489 E66.9 -advised health coaching-c heck labs then ff up-also discussed option for referral to a wt loss clinic-adv ised to address the abnormal vaginal bleeding as below first Loss of hair 385534519 L 65.9 -check labs after vaginal bleeding has been addressed as below, then ff up-conside r derma referral if labs are unremarkab le Abnormal v aginal bleeding 749460448 N93.9 -reports change in menstrual pattern the [...] Bella Member ID Guarantor Name 08/12/2023 1 [facility] (PP[facility]) [id number] Shanda Jaimes [id number] Shanda Jaimes Notes Date Note Type Note Provider Name and Address Organization Details Recorded Time 05/13/2023 text/html TELEPHONIC CONSULTATION Patient name, , and emergency contact verified. Patient Location -[place] Provider location - [place]. Telemedicine limitations were discussed with the patient. [...] 6 mos). Karina Jennings MD [address], [place], [address], [place] - [facility] 05/13/2023 13:35:22 OBGyn Episode No OBEpisode recorded.
== END 2024-12-12 23:59 | disposition home or self-care (01) ==
LOC: LAB.DROPOF 12-14 14:45
PROVIDERS: PCP Physician Assistant; Visit Provider Nurse Practitioner Family
DX: R30.0 Dysuria (principal)
CPT/HCPCS: 87086

== ENCOUNTER 2025-01-04 15:39 | Outpatient (CLI) | payer OTHER, SELFPAY ==
[2025-01-04 15:13] LABS: Microscopic, Urine URINE MICROSCOPIC (MICROSCOPIC)
[2025-01-04 15:37] LABS: Appearance,Urine CLEAR (Clear); Bilirubin,Urine Negative (Negative); Blood, Urine 3+ (Negative); Color,Urine YELLOW (Yellow); Glucose,Urine (UA) Negative (Negative); Ketones,Urine Negative (Negative); Leukocyte Esterase,Urine 1+ (Negative); Nitrate,Urine Negative (Negative); Protein,Urine Negative (Negative); Urobilinogen,Urine 0.2 EU/dl (0.2)
--- OUTSIDE RECORDS SUMMARY | 2025-01-04 15:55 | XMS_ITS | Continuity of Care Document ---
Author Organization [place] - [employer], [facility] Address [address] [place] [address] Assessment No assessment recorded. Plan of Treatment Reminders Order Date Submit Date Provider Last Modified By Organization Details Last Modified Time Details Appointments None recorded. Lab urinalysis , dipstick 2024 025 [email or web address] [facility], [address] [facility], [place], [address], 17:56:47 vaginal pathogens panel, JUANJOSE+probe, vaginal fluid 2024 025 [facility], [address] [place] [address], [id number], 07:09:00 culture, urine 2024 025 [facility], [address] [place] [address], [id number], 5 07:09:00 Referral None recorded. Procedures None recorded. Surgeries None recorded. Imaging None recorded. Medication Orders None recorded. Patient TargetsNo targets recorded. Patient Instructions Encounter Date Encounter Id Patient Instructions Last Modified By Organization Details Last Modified Time 12/17/2024 [id number] painful urinatio n (dysuria): care instructions [id number] Not available 12/17/2024 17:56:47 Reason for Referral None Reported. Results Created Date Observation Date Name Description Value Unit Range Abnormal Flag Note LastModifiedBy Organization Detail LastModifiedTime 12/18/19 25 12/17/2024 urina lysis , dipst ick Leukocytes Trace Not Available [address], [place], [address], 12/17/2024 17:49:25 12/18/19 25 12/17/2024 urina lysis , dipst ick Nitrite negati ve Not Available [address], [place], [address], 12/17/2024 17:49:25 12/18/19 25 12/17/2024 urina lysis , dipst ick Urobilinogen 1 Not Available [address], [place], [address], 12/17/2024 17:49:25 12/18/19 25 12/17/2024 urina lysis , dipst ick Protein Negati ve Not Available [address], [place], [address], 12/17/2024 17:49:25 12/18/19 25 12/17/2024 urina lysis , dipst ick pH 7.0 Not Available [address], [place], [address], 12/17/2024 17:49:25 12/18/19 25 12/17/2024 urina lysis , dipst ick Blood Negati ve Not Available [address], [place], [address], 12/17/2024 17:49:25 12/18/19 25 12/17/2024 urina lysis , dipst ick Specific Carlin 1.015 Not Available [address], [address], 12/17/2024 17:49:25 12/18/19 25 12/17/2024 urina lysis , dipst ick Ketone Negati ve Not Available [address], [address], 12/17/2024 17:49:25 12/18/19 25 12/17/2024 urina lysis , dipst ick Bilirubin Negati ve Not Available [address], [address], 12/17/2024 17:49:25 12/18/19 25 12/17/2024 urina lysis , dipst ick Glucose Negati ve Not Available [address], [address], 12/17/2024 17:49:25 12/18/19 25 12/17/2024 urina lysis , dipst ick Appearance Clear Not Available [address], [address], 12/17/2024 17:49:25 12/18/19 25 12/17/2024 urina lysis , dipst ick Color Yellow Not Available [address], [address], 12/17/2024 17:49:25 Result Notes None recorded. Problems Name Problem SNOMED Code Status Onset Date Resolution Date Notes Provider Name and Address Organization Details Recorded Time Low back pain 829370223 Active 2024 RAI Alegria [address] [place] [address], [address] , [employer] 16:57:55 Generalized anxiety disorder 84298297 Active 2024 RAI Alegria [address] [place] [address], [address] , [employer] 03/13/202 5 08:42:42 Vertigo 926158548 Active 2024 RAI Alegria [address] [place] [address], [address] , [employer] 5 17:17:48 Acute urinary tract infection 768149077 Active 2024 RAI Alegria [address] [place] [address], [address] , [employer] 5 09:15:40 Nausea and vomiting 56957807 Active 2024 RAI Alegria [address] [place] [address], [address] , [employer] 5 15:37:35 Dysuria 28469011 Active 2024 RAI Alegria [address] [place] [address], [address] [place] [address] , [employer] 5 09:19:50 Overactive urinary bladder 616482260 Active 2024 RAI Alegria [address] [place] [address], [address] , [employer] 5 09:34:59 Surveillanc e of subcutaneou s contracepti ve implant Active 2019 Not Available [facility] 2 22:00:08 Contracepti on care management Active 2019 Problem Code: Z30.9; Problem Code Type: ICD-10; Not Available [facility] 2 22:00:08 Problem Notes None recorded. Procedures Surgical History Date Name Laterality Status Provider Name and Address Organization Details Recorded Time 08/21/19 24 Date of Last Pap Smear completed [employer] 08/31/2024 16:36:25 Caesarean Section completed [employer] 08/31/2024 16:36:26 Hernia Repair completed [employer] 08/31/2024 16:36:26 Tonsillectomy completed [employer] 08/31/2024 16:36:26 Imaging Results None recorded. Procedure Notes None recorded. Medical Equipment None Reported. Allergies No known drug allergies Medications Name Sig Start Date Stop Date Status Note LastModified by Organization Details LastModified Time eq sinus 12-hour 120mg tab TAKE 1 TABLET BY MOUTH EVERY 12 HOURS 08/31 completed Not Available Not Available Not Available magnesium citrate 1.745g isidro TAKE 1 BOTTLE BY MOUTH DIRECTED FOR 1 DAY 08/31 completed Not Available Not Available Not Available eq sinus 12-hour maximum strength 120 mg tb12 08/31 completed Not Available Not Available Not Available amoxicillin 500 mg capsule TAKE 1 CAPSULE BY MOUTH EVERY 8 HOURS FOR 7 DAYS 08/31 completed Not Available Not Available Not Available fluconazole 100 mg tablet TAKE 1 TABLET BY MOUTH ONCE DAILY 12/17 completed Not Available Not Available Not Available buspirone 5 mg tablet TAKE 1 TABLET BY MOUTH TWICE DAILY 08/31 completed Not Available Not Available Not Available metformin 500 mg tablet TAKE 1 TABLET BY MOUTH ONCE DAILY 08/31 completed Not Available Not Available Not Available bupropion HCl SR 150 mg tablet,12 hr sustained-r elease TAKE 1 TABLET BY MOUTH ONCE DAILY 10/08 completed Not Available Not Available Not Available venlafaxine ER 37.5 mg capsule,ext ended release 24 hr TAKE 1 CAPSULE BY MOUTH ONCE DAILY 08/31 completed Not Available Not Available Not Available venlafaxine ER 75 mg capsule,ext ended release 24 hr TAKE 1 CAPSULE BY MOUTH ONCE DAILY 08/31 completed Not Available Not Available Not Available doxycycline hyclate 100 mg capsule TAKE 1 CAPSULE BY MOUTH TWICE DAILY WITH FOOD FOR 6 WEEKS 08/31 completed Not Available Not Available Not Available paroxetine 10 mg tablet take 1 tablet (10 mg) by oral route once daily 08/29 completed Not Available Not Available Not Available ketoconazol e 2 % shampoo USE TO SHAMPOO TO THE SCALP AND FACE THREE TIMES A WEEK ALTERNATI NG WITH HEAD AND SHOULDERS . LEAVE IN 5 MINUTES AND THEN RINSE. active Not Available Not Available No t Available cetirizine 10 mg tablet TAKE 1 TABLET BY MOUTH ONCE DAILY NEEDED FOR ALLERGIES 08/31 completed Not Available Not Available Not Available atorvastati n 10 mg tablet TAKE 1 TABLET BY MOUTH AT BEDTIME NIGHTLY 08/31 completed Not Available Not Available Not Available azithromyci n 250 mg tablet TAKE 2 TABLETS BY MOUTH ON DAY 1, AND THEN TAKE 1 TABLET BY MOUTH ONCE A DAY ON DAY 2 THROUGH DAY 5 08/31 completed Not Available Not Available Not Available fluconazole 150 mg tablet TAKE 1 TABLET BY MOUTH EVERY OTHER DAY FOR 6 DAYS 08/31 completed Not Available Not Available Not Available valacyclovi r 1 gram tablet TAKE 1 TABLET BY MOUTH TWICE DAILY NEEDED FOR COLD SORES active Not Available Not Available No t Available tretinoin 0.025 % topical cream APPLY A PEA SIZED AMOUNT OF CREAM TOPICALLY TO FACE EVERY THIRD NIGHT TO NIGHTLY TOLERATED 12/17 completed Not Available Not Available Not Available ondansetron HCl 4 mg tablet 08/31 completed Not Available Not Available Not Available spironolact one 100 mg tablet Take 1 tablet every day by oral route in the evening. 2024 active Not Available Not Available Not Avai lable Pyridium 200 mg tablet Take 1 tablet every day by oral route for 10 days, for dysuria. 2024 active Not Available Not Available Not Avai lable venlafaxine ER 150 mg capsule,ext ended release 24 hr TAKE 1 CAPSULE BY MOUTH ONCE DAILY 08/31 completed Not Available Not Available Not Available fexofenadin e 180 mg tablet TAKE 1 TABLET BY MOUTH ONCE DAILY 08/31 completed Not Available Not Available Not Available prochlorper azine maleate 10 mg tablet TAKE 1 TABLET BY MOUTH EVERY 8 HOURS NEEDED 08/31 completed Not Available Not Available Not Available ondansetron 8 mg disintegrat ing tablet DISSOLVE 1 TABLET IN MOUTH THREE TIMES DAILY NEEDED FOR 5 DAYS 12/17 completed Not Available Not Available Not Available lamotrigine 25 mg tablet TAKE 1 TABLET BY MOUTH ONCE DAILY 08/31 completed Not Available Not Available Not Available clindamycin 1 % topical gel APPLY A THIN LAYER TO THE AFFECTED AREA(S) BY TOPICAL ROUTE 2 TIMES PER DAY 12/17 completed Not Available Not Available Not Available meclizine 25 mg tablet TAKE 1 TABLET BY MOUTH THREE TIMES DAILY NEEDED FOR 10 DAYS 11/30 completed Not Available Not Available Not Available phenazopyri dine 100 mg tablet TAKE 1 TABLET BY MOUTH TWICE DAILY NEEDED FOR PAIN FOR 3 DAYS 12/17 completed Not Available Not Available Not Available cephalexin 500 mg capsule TAKE 1 CAPSULE BY MOUTH EVERY 12 HOURS FOR 10 DAYS 12/17 completed Not Available Not Available Not Available tacrolimus 0.1 % topical ointment APPLY OINTMENT TOPICALLY TO FACE TWICE DAILY OR NEEDED WITH FLARES active Not Available Not Available No t Available buspirone 30 mg tablet TAKE 1 TABLET BY MOUTH TWICE DAILY 08/31 completed Not Available Not Available Not Available buspirone 10 mg tablet TAKE 1 TABLET BY MOUTH TWICE DAILY 08/31 completed Not Available Not Available Not Available clindamycin phosphate 1 % topical swab WIPE FACE, CHEST AND BACK TOPICALLY WITH PAD ONCE DAILY DIRECTED active Not Available Not Available No t Available oxybutynin chloride ER 5 mg tablet,exte nded release 24 hr TAKE 1 TABLET BY MOUTH ONCE DAILY active Not Available Not Available No t Available mupirocin 2 % topical ointment APPLY OINTMENT TOPICALLY THREE TIMES DAILY FOR INFECTION 08/31 completed Not Available Not Available Not Available benzoyl peroxide 5 % topical cleanser USE TO WASH AREAS OF ACNE ONCE DAILY IN SHOWER 08/31 completed Not Available Not Available Not Available levofloxaci n 500 mg tablet TAKE 1 TABLET BY MOUTH EVERY 24 HOURS FOR 5 DAYS 12/17 completed Not Available Not Available Not Available methylpredn isolone 4 mg tablets in a dose pack TAKE DIRECTED 11/30 completed Not Available Not Available Not Available hydrocortis one 2.5 % topical ointment APPLY TOPICALLY TO AFFECTED AREAS ON FACE TWICE DAILY NEEDED, THEN TAKE A 1 WEEK BREAK. REPEAT NEEDED 08/31 completed Not Available Not Available Not Available ketoconazol e 2 % topical cream APPLY CREAM TOPICALLY TO AFFECTED AREA ON NOSE TWICE DAILY UNTIL RESOLVED 08/31 completed Not Available Not Available Not Available hydroxyzine HCl 10 mg tablet TAKE 1 TABLET BY MOUTH THREE TIMES DAILY NEEDED FOR ANXIETY active Not Available Not Available No t Available bromphenira mine-pseudo ephedrine-D M 2 mg-30 mg-10 mg/5 mL oral syrup TAKE 10 ML BY MOUTH EVERY 6 HOURS NEEDED FOR COLD SYMPTOMS 08/31 completed Not Available Not Available Not Available clobetasol 0.05 % scalp solution APPLY SOLUTION TOPICALLY TO FLAKY PATCHES ON SCALP ONCE DAILY 08/31 completed Not Available Not Available Not Available cefdinir 300 mg capsule TAKE 1 CAPSULE BY MOUTH TWICE DAILY 08/31 completed Not Available Not Available Not Available fluticasone propionate 50 mcg/actuati on nasal spray,suspe nsion USE 1 SPRAY(S) IN EACH NOSTRIL ONCE DAILY active Not Available Not Available No t Available buspirone 15 mg tablet TAKE 1 TABLET BY MOUTH TWICE DAILY 08/31 completed Not Available Not Available Not Available ezetimibe 10 mg tablet TAKE 1 TABLET BY MOUTH ONCE DAILY 08/31 completed Not Available Not Available Not Available bupropion HCl XL 150 mg 24 hr tablet, extended release TAKE 1 TABLET BY MOUTH ONCE DAILY active Not Available Not Available No t Available tretinoin 12/17 completed Not Available Not Available Not Available cholecalcif miryam (vitamin D3) 1,250 mcg (50,000 unit) capsule TAKE 1 CAPSULE BY MOUTH ONCE A WEEK FOR VITAMIN D DEFICIENC Y 08/31 completed Not Available Not Available Not Available sulfacetami de sodium-sulf ur 8 %-4 % topical suspension APPLY SUSPENSIO N TOPICALLY TO FACE ONCE DAILY OR ONCE DAILY IN THE SHOWER. MAY USE ON CHEST, BACK AND SHOULDERS IF ACNE DEVELOPS active Not Available Not Available No t Available vilazodone 10 mg tablet TAKE 1 TABLET BY MOUTH ONCE DAILY 08/31 completed Not Available Not Available Not Available desvenlafax ine succinate ER 25 mg tablet,exte nded release 24 hr TAKE 1 TABLET BY MOUTH ONCE DAILY 08/31 completed Not Available Not Available Not Available Addyi 100 mg tablet TAKE 1 TABLET BY MOUTH ONCE DAILY AT NIGHT 08/31 completed Not Available Not Available Not Available sulfacetami de sodium 8 %-sulfur 4 % topical cleanser APPLY TO WET SKIN BY TOPICAL ROUTE ONCE DAILY THEN MASSAGE GENTLY 10-20 SECONDS, RINSE, AND PAT DRY active Not Available Not Available No t Available Vitals Date Recorded Body height Body mass index (BMI) Body weight Oxygen saturation Oxygen saturation in Arterial blood by Pulse oximetry Heart rate Body temperature Systolic blood pressure Diastolic blood pressure Provider Name and Address Organization Details Last Updated DateTime 152.4 cm 30.8 kg/m2 33365.8 8 g 98 % 98 % 88 /min 98.3 [degF] 118 mm[Hg] 86 mm[Hg] Mirna [facility] [employer] 17:38:19 Social History Question Answer Notes LastModified by Organization Details LastModified Time Tobacco Smoking Status Former Smoker Alberto hawk: 'Tobacco /Alcohol /Supplem ents'; Alberto barkley: 'Former Smoker'; Not Available [facility] 04/03/2022 23:01:48 Do You Have An Advance Directive? No Information not available 08/31/2024 Is Your Home Air Conditioned? Yes Information not available 08/31/2024 How Many Years Have You Consumed Alcohol? 6 Information not available 08/31/2024 Do You Wear A Helmet When Biking? Yes Information not available 08/31/2024 Are You Blind Or Do You Have Difficulty Seeing? No Information not available 08/31/2024 What Is Your Level Of Caffeine Consumption? Moderate Information not available 08/31/2024 What Type Of Miller Rod Mill Do You Use? [employer] Information not available 08/31/2024 Have You Been To An Area Known To Be High Risk For COVID-19? No Information not available 08/31/2024 Are You Deaf Or Do You Have Serious Difficulty Hearing? No Information not available 08/31/2024 What Type Of Diet Are You Following? REGULAR Information not available 08/31/2024 Who Is Your Employer? [employer] Information not available 08/31/2024 How Many Days Of Moderate To Strenuous Exercise, Like A Brisk Walk, Did You Do In The Last 7 Days? 3 Information not available 08/31/2024 Have There Been Any Changes To Your Family Or Social Situation? No Information not available 08/31/2024 When Did You Quit Smoking? 6-10yearssincelastc igarette Information not available 08/31/2024 Are There Any Guns Present In Your Home? Yes Information not available 08/31/2024 Which Of Your Hands Is Dominant? Right Information not available 08/31/2024 What Is Your Home Situation? Other Information not available 08/31/2024 Do You Have A Medical Power Of Automotive Brake Technician? No Information not available 08/31/2024 What Was The Date Of Your Most Recent Tobacco Screening? 12/17/2024 Information not available 12/17/2024 Are There Any Occupational Health Risks Where You Work? No Information not available 08/31/2024 What Is Your Current Pack Years? 10packyears Information not available 08/31/2024 Do You Have Any Pets? Yes Information not available 08/31/2024 Do You Use Protection During Sex? No Information not available 08/31/2024 What Is Your Relationship Status? Information not available 08/31/2024 Have You Repeated Any Grades? No Information not available 08/31/2024 Do You Use Your Seat Belt Or Car Seat Routinely? Yes Information not available 08/31/2024 Are You Sexually Active? Yes Information not available 08/31/2024 Do You Have Any Siblings? 2 Information not available 08/31/2024 Do You Have Smoke And Carbon Monoxide Detectors In Your Home? Yes Information not available 08/31/2024 At What Age Did You Start Smoking Tobacco? 20 Information not available 08/31/2024 Are You Passively Exposed To Smoke? No Information not available 08/31/2024 Are There Any Smokers In Your House? No Information not available 08/31/2024 How Much Tobacco Do You Smoke? 1 PPW Information not available 08/31/2024 Do You Participate In Social Media? Yes Information not available 08/31/2024 Do You Use Sunscreen Routinely? No Information not available 08/31/2024 Has Tobacco Cessation Counseling Been Provided? No Information not available 08/31/2024 How Many Years Have You Smoked Tobacco? 6 Information not available 08/31/2024 Have You Recently Traveled Abroad? No Information not available 08/31/2024 Do You Have Difficulty Walking Or Climbing Stairs? No Information not available 08/31/2024 Are You Currently In School? No Information not available 08/31/2024 What Contraceptive Method Was Reported At Start Of This Visit? None Information not available 08/31/2024 Do You Have Any Dietary Restrictions? No Information not available 08/31/2024 How Many Days In The Past Year Have You Consumed 4 Or More Drinks? 0 Information not available 08/31/2024 Sex: Female Functional Status Question Answer Note LastModified by [email or web address] Details LastModified Time Do you use any illicit or recreational drugs? No Information not available 08/31/2024 Do you or have you ever used any other forms of tobacco or nicotine? No Information not available 08/31/2024 What is your level of alcohol consumption? Occasional Information not available 08/31/2024 Are you currently employed? Yes Information not available 08/31/2024 Do you have transportation difficulties? No Information not available 08/31/2024 Are you able to walk? [employer]ORE[employer] Information not available 08/31/2024 Do you have difficulty doing errands alone? No Information not available 08/31/2024 Are you able to care for yourself? Yes Information n ot available 08/31/2024 Do you have difficulty dressing or bathing? No Information not available 08/31/2024 What is your exercise level? Occasional Information not available 08/31/2024 Mental Status Question Answer Note LastModified by [email or web address] Details LastModified Time Do you feel stressed (tense, restless, nervous, or anxious, or unable to sleep at night)? [id number] Information not available 08/31/2024 Do you have difficulty concentrating, remembering or making decisions? No Information no t available 08/31/2024 Are you or have you been involved with bullying? No Information not available 08/31/2024 Family History Relationship Description Onset Age of this Age Resolved Age Notes LastModified by Organization Details LastModified Time Mother Anxiety disorder Not available 2024 16:36:24 Notes:*Procedure Description : Documented family medical history in mother*Relative: Mother *Procedure Description: Documented family medical history in father*Relative: Father *Procedure Description: Family medical history unremarkable*Relative: Unspecified Relation *Problem: Relative: ''; Medical History Condition Response Allergies (Food, seasonal, environmental ) Y Coronary Artery Disease N Other N Gout N Kidney Stones N Blood Diseases N Hyperthyroidism N Breast Cancer N Blood Transfusion N Emergency room visit since last appointm ent. N COPD N Depression Y Dermatologic Disorders N Hypothyroidism N Lung Disease N Developmental or Behavioral Disorders N Defects or Inherited Disease N Breast Problem N Difficulty Swallowing N Anesthesia Complications N History of STI N Meniere's disease N Anxiety Disorder Y Muscle, Joint, or Bone Problems N Autoimmune disease N Vision or Eye Problems N Arthritis N Polyps N Infertility N Mental Disorder N Congenital Anomalies N Acid Reflux (GERD) N Cancer N Stroke N Neurologic/Epilepsy N Endometriosis N Bladder or Kidney Problems N High Cholesterol Y Liver Disease N Organ Transplant N Psychiatric/Mental Health Condition N Fibromyalgia N Headaches N Dialysis N Schizophrenia N Kidney Disease N Allergies/Hayfever N Heart Problems N Ear or Hearing Problems N Hospitalizations N Learning Disorder N Artificial Joints N Thyroid Problems N GI Problems N Acne Y ADD/ADHD N Eating Disorder N Anemia N Constipation N Mental Illness N Ovarian Cancer N Diabetes N Bedwetting N Hepatitis/Liver Disease N Tuberculosis N Eczema N Diverticulitis N Abuse/Domestic Violence N Asthma N Trauma/Violence N Substance Abuse N Reflux/GERD N Depression/ depression N Hepatitis N Heart Disease N Pulmonary Embolism N Tourette Syndrome N Chronic Ear Infections N Pre-Eclampsia N Hypertension N Chicken Pox N Autism Spectrum Disorder (ASD) N Osteoporosis N Thrombophilias N Gynecological History Statement/Question Response Abnormal Pap N Flow Moderate Date of LMP 12/07/2024 HPV Vaccine Y Duration of Flow (days) 7 Current Control Method None Age at Menarche 13 Most Recent Mammogram Age at First Child 25 Sexually Active? Y Menses Monthly Y Date of Last Pap Smear 08/21/2023 LMP Approximate Obstetrics History GPAL:G 2 P 2 0 0 2 Type Value Multiple Births 0 Full Term 2 Induced 0 Spontaneous 0 Premature 0 Living 2 Ectopics 0 Total 2 Immunizations Vaccine Type Date Status Note Provider Nam e and Address Organization Details Recorded Time Hib, unspecified formulation 8 completed Mirna Vice null, [employer] 08/31/2024 16:36:36 IPV 8 completed Mirna Vice null, [employer] 08/31/2024 16:36:36 IPV 9 completed Mirna Vice null, [employer] [facility] [employer] 08/31/2024 16:36:36 IPV 1 completed Mirna Vice null, [employer] 08/31/2024 16:36:36 IPV 7 completed Mirna Vice null, [employer] [facility] [employer] 08/31/2024 16:36:36 MMR 9 completed Mirna Vice null, [employer] 08/31/2024 16:36:36 MMR 9 completed Mirna Vice null, [employer] 08/31/2024 16:36:36 MMR 1 completed Mirna Vice null, [employer] 08/31/2024 16:36:36 COVID-19, mRNA, LNP-S, PF, 100 mcg/0.5mL dose or 50 mcg/0.25mL dose 2 completed Mirna Vice null, [employer] 08/31/2024 16:36:36 COVID-19, mRNA, LNP-S, PF, 100 mcg/0.5mL dose or 50 mcg/0.25mL dose 2 completed Mirna Vice null, [employer] 08/31/2024 16:36:36 Tdap 9 completed Mirna Vice null, [employer] 08/31/2024 16:36:36 Tdap 9 completed Mirna Vice null, [employer] 08/31/2024 16:36:36 Tdap 1 completed Mirna Vice null, [employer] 08/31/2024 16:36:36 varicella 2 completed Mirna Vice null, [employer] 08/31/2024 16:36:36 varicella 8 completed Mirna Vice null, [employer] 08/31/2024 16:36:36 DTP 9 completed Mirna Vice null, [employer] 08/31/2024 16:36:36 DTP 1 completed Mirna Vice null, [employer] 08/31/2024 16:36:36 Hep B, unspecified formulation 8 completed Mirna Vice null, [employer] 08/31/2024 16:36:36 Hep B, unspecified formulation 7 completed Mirna Vice null, [employer] 08/31/2024 16:36:36 OPV 8 completed Mirna Vice null, [employer] 08/31/2024 16:36:36 DTP-Hib 8 completed Mirna Vice null, [employer] 08/31/2024 16:36:36 DTP-Hib 8 completed Mirna Vice null, [employer] 08/31/2024 16:36:36 DTP-Hib 7 completed Mirna Vice null, [employer] 08/31/2024 16:36:36 Influenza, split virus, trivalent, preservative 9 completed Mirna Vice null, [employer] 08/31/2024 16:36:36 Influenza, split virus, trivalent, preservative 7 completed Mrina [employer] null, [employer] 08/31/2024 16:36:36 HPV, quadrivalent 9 completed Mirna Vice null, [employer] 08/31/2024 16:36:36 Hep B, adolescent or pediatric 7 completed Mirna Vice null, [employer] 08/31/2024 16:36:36 Hep A, adult 8 completed Mirna Vice null, [employer] 08/31/2024 16:36:36 meningococcal MCV4P 9 completed Mirna Vice null, [employer] 08/31/2024 16:36:36 DTaP, unspecified formulation 9 completed Mirna Vice null, [employer] 08/31/2024 16:36:36 Influenza, split virus, quadrivalent, PF 6 completed Mirna Vice null, [employer] 08/31/2024 16:36:36 Influenza, split virus, quadrivalent, PF 9 completed Mirna Vice null, [employer] 08/31/2024 16:36:36 Past Encounters Encounter ID Performer Location Encounter Start Date Encounter Closed Date Diagnosis/Indication Diagnosis SNOMED-CT Code Diagnosis ICD10 Code Diagnosis Note [id number] RAI Alegria [address] [address] 11/30/2024 08:44:22 11/30/2024 09:16:08 Acute urinary tract infection 155419870 N39.0 Increase hydration, culture pending. RTC if not improving. [id number] RAI Alegria [address] [address] 12/17/2024 17:24:58 12/22/2024 13:17:24 Dysuria 70571696 R30.0 Leukocytes in urine 2757 66176 R82.998 Health Concerns Section Related Observation LastModified by Organization Detai ls LastModified Time None Recorded Concern Status LastModified by Organization Details LastModified Time None Recorded Payers Encounter Date Sequence Insurance Name Policy Number Policy Bella Covered Member ID Bella Member ID Guarantor Name 12/17/2024 1 [facility] [employer] Shanda Jaimes [id number] Shanda Jaimes Notes Date Note Type Note Provider Name and Address Organization Details Recorded Time 12/17/2024 text/html Patient was seen a few weeks ago [facility]. Has been given antibiotics, diflucan. She is still having urgency, frequency and burning when she urinates. Feels as if she does not empty bladder completely and that is making it hard to sleep. She denies itching, odor or discharge. RAI Alegria [address] [place] [address], [address], [facility] [employer] 12/22/2024 11:09:21 OBGyn Episode No OBEpisode recorded.
[2025-01-04 16:27] LABS: Bacteria,Urine Trace /lpf; Squamous Epithelial Cell,Urine Occasional #/hpf (0-5)
[2025-01-07 23:14] LABS: Atopobium vaginae Low - 0 Score (.); BVAB2 Low - 0 Score (.); Candida albicans NAA Negative (Negative); Candida glabrata Negative (Negative); Chlamydia Trachomatis NAA Negative (Negative); HSV 1 NAA Negative (Negative); HSV 2 NAA Negative (Negative); Megasphaera 1 Low - 0 Score (.); Neisseria gonorrhoeae NAA Negative (Negative); Trich vag NAA Negative (Negative)
== END 2025-01-04 23:59 | disposition home or self-care (01) ==
LOC: LAB.DROPOF 15:40
PROVIDERS: PCP Urology; Visit Provider Urology
DX: N32.81 Overactive bladder (principal); N39.0 Urinary tract infection, site not specified
CPT/HCPCS: 81001; 87086; 87491; 87529; 87591; 87661; 87798; 87801

== ENCOUNTER 2025-01-08 15:39 | Outpatient (CLI) | payer OTHER, SELFPAY ==
--- NOTE | 2025-01-08 15:30 | US_ITS ---
FINAL REPORT TECHNIQUE: Ultrasound images of the kidneys and bladder were obtained. CLINICAL HISTORY: urinary tract infection FINDINGS: The right kidney measures 9.7 cm in length. It is normal in echogenicity. There is no hydronephrosis. The left kidney measures 11.5 cm in length. It is normal in echogenicity. There is no hydronephrosis. The spleen is unremarkable. IMPRESSION: Unremarkable renal ultrasound. Reviewed, Interpreted and Dictated by Tyler Artis MD Transcribed by Siobhan Perkins Authenticated and [facility]
--- NOTE | 2025-01-08 15:37 | XR_ITS ---
FINAL REPORT CLINICAL HISTORY: Hematuria FINDINGS: ABDOMEN SINGLE VIEW There is a nonspecific, nonobstructive bowel gas pattern. No abnormal dilatation is identified. There is no abnormal calcification. IMPRESSION: No acute process. Reviewed, Interpreted and Dictated by Tyler Artis MD Transcribed by Siobhan Perkins Authenticated and [facility]
--- OUTSIDE RECORDS SUMMARY | 2025-01-08 15:41 | XMS_ITS | Data Portability ---
Author Organization [place] - [facility], Chika Ulrich Address [address] [place] [address] Assessment Encounter Date Assessment Date Assessment LastModified [...] diff - Service Code #6399 2022 023 [facility], [address] [place], [address], 3 06:39:07 vitamin D, 25-hydroxy , total, serum - Service Code #28612 2022 023 [facility], [address] [place], [address], 3 06:39:08 ferritin, serum or plasma - service code #457 2022 023 [facility], [address] [place], [address], 3 06:39:08 iron + total iron-clementina ng capacity (TIBC), serum - Service Code #7573 2022 023 [facility], [address] [place], [address], 06:39:08 CMP, serum or plasma - Service Code #24640 2022 023 [facility], [address] [place], [address], 06:39:07 HbA1c (hemoglobi n A1c), blood 2022 [facility], [address] [place], [address], 06:39:07 TSH, serum or plasma - Service Code #88058 2022 [facility], [address] [place], [address], 06:39:07 lipid panel, serum - Service Code #94861 2022 [facility], [address] [place], [address], 06:39:07 Referral None recorded. Procedures None recorded. Surgeries None recorded. Imaging None recorded. Medication Orders None recorded. Patient TargetsNo targets recorded. Patient Instructions Encounter Date Encounter Id Patient Instructions Last Modified By Organization Details Last Modified Time 05/13/2023 [id number] Please go to you r local urgent [...] Organization Details Recorded Time Loss of hair 392393908 Active Karina Jennings MD [address], [place], [address], On license of [facility] 3 13:09:22 Abnormal vaginal bleeding 773386769 Active 023 Karina Jennings MD [address], [place], [address], On license of [facility] 3 13:09:29 Increased body mass index 31552724 Active 023 Karina Jennings MD [address], [place], [address], On license of [facility] 3 13:09:34 Problem Notes None recorded. Procedures Surgical History Date Name Laterality Status Provider Name and Address Organization Details Recorded Time 1 section completed Carmel Dalton RN [address], [place], [address] [place] [address], On license of [facility] 05/13/2023 12:52:29 9 Caesarean Section completed Carmel Dalton RN [address], [place], [address] [place] [address], On license of [facility] 05/13/2023 12:45:56 Tonsillectomy/ adenoids completed Carmel Dalton RN [address], [place], [address] [place] [address], On license of [facility] 05/13/2023 12:45:56 Ear Tube completed Carmel Dalton RN [address], [place], [address] [place] [address], On license of [facility] 05/13/2023 12:45:56 Hernia Repair completed Carmel Dalton RN [address], [place], [address] [place] [address], On license of [facility] 05/13/2023 12:45:56 Imaging Results None recorded. Procedure [...] Updated DateTime 05/13/2023 152.4 cm 31.1 kg/m2 97808.19 g 117 mm[Hg] 60 mm[Hg] Carmel Dalton RN [address], [place], [address], [place] - [facility] 3 12:50:39 Social History Question Answer Notes LastModified by Organizat ion Details LastModified Time Tobacco Smoking Status Former Smoker Carmel Dalton RN [address], [place], [address], [place] - [facility] 05/13/2023 12:45:49 What Is Your Level Of Caffeine Consumption? Moderate Information not available 05/13/2023 What Is The Highest Grade Or Level Of School You Have Completed Or The Highest Degree You Have Received? [id number] Information not available 05/13/2023 Cigar Smoking No [...] Ways My Life Is Close To My Venus. 6 - Agree [email or web address] Information not available [...] The Last Month, How Often Have You Jamieson That You Were Unable To Control The Important Things In Your Life? 2 - Sometimes [email or web address] Information not available 05/10/2023 STRESS -- In The Last Month, How Often Have You Jamieson Nervous And Stressed? 3 - Fairly Often [email or web address] Information not available 05/10/2023 STRESS -- In The Last Month, How Often Have You Jamieson Confident About Your Ability To Handle Your Personal Problems? 3 - Fairly Often [email or web address] Information not available 05/10/2023 STRESS -- In The Last Month, How Often Have You Jamieson That Things Were Going Your Way? 2 - Sometimes [email or web address] Information not available 05/10/2023 STRESS -- In The Last Month, How Often Have You Found That You Could Not Buckeye With All The Things That You Had To Do? 2 - Sometimes [email or web address] Information not available 05/10/2023 STRESS -- In The Last Month, How Often Have You Been Able To Control Irritations In Your Life? 3 - Fairly Often [email or web address] Information not available 05/10/2023 STRESS -- In The Last Month, How Often Have You Jamieson That You Were On Top Of Things? 2 - Sometimes [email or web address] Information not available 05/10/2023 STRESS -- In The Last Month, How Often Have You Been Angered Because Of Things That Happened That Were Outside Of Your Control? 2 - Sometimes [email or web address] Information not available 05/10/2023 STRESS -- In The Last Month, How Often Have You Jamieson Difficulties Were Piling Up So High That [...] 05/10/2023 Have You Ever Served In The ? 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 [address] 05/13/2023 12:44:29 05/13/2023 13:17:13 Increased body mass index 23437025 E66.9 -advised health coaching-c heck labs then ff up-also discussed option for referral to a wt loss clinic-adv ised to address the abnormal vaginal bleeding as below first Loss of hair 400617943 L 65.9 -check labs after vaginal bleeding has been addressed as below, then ff up-conside r derma referral if labs are unremarkab le Abnormal v aginal bleeding 462810712 N93.9 -reports change in menstrual pattern the [...] Bella Member ID Guarantor Name 08/12/2023 1 [facility] (PP[facility]) [id number] Shanda Jaimes [id number] Shanda Jaimes Notes Date Note Type Note Provider Name and Address Organization Details Recorded Time 05/13/2023 text/html TELEPHONIC CONSULTATION Patient name, , and emergency contact verified. Patient Location -[place] Provider location - [place]. Telemedicine limitations were discussed with the patient. The patient verbally consented to consultation and treatment with telehealth today w tonio consent on file. Shanda would like to [...] 6 mos). Karina Jennings MD [address], [facility] [place], [address], [place] [facility] 05/13/2023 13:35:22 OBGyn Episode No OBEpisode recorded.
--- OUTSIDE RECORDS SUMMARY | 2025-01-08 15:41 | XMS_ITS | Continuity of Care Document ---
Author Organization [place] - [email or web address], [facility] Address [address] [place] [address] Assessment No assessment recorded. Plan of Treatment Reminders Order Date Submit Date Provider Last Modified By Organization Details Last Modified Time Details Appointments None recorded. Lab urinalysis , dipstick 2024 025 [email or web address] [facility], [address] [facility], [place], [address], 17:56:47 vaginal pathogens panel, JUANJOSE+probe, vaginal fluid 2024 025 RAD[facility], [address] [place] [address], [address], 07:09:00 culture, urine 2024 025 GR[facility], [address] [place] [address], [address], 5 07:09:00 Referral None recorded. Procedures None recorded. Surgeries None recorded. Imaging None recorded. Medication Orders None recorded. Patient TargetsNo targets recorded. Patient Instructions Encounter Date Encounter Id Patient Instructions Last Modified By Organization Details Last Modified Time 12/17/2024 [id number] painful urinatio n (dysuria): care instructions [id number] Not available 12/17/2024 17:56:47 Reason for Referral None Reported. Results Created Date Observation Date Name Description Value Unit Range Abnormal Flag Note LastModifiedBy Organization Detail LastModifiedTime 12/18/19 25 12/17/2024 urina lysis , dipst ick Leukocytes Trace Not Available [address], [place], [address], 12/17/2024 17:49:25 12/18/19 25 12/17/2024 urina lysis , dipst ick Nitrite negati ve Not Available [address], [place], [address], 12/17/2024 17:49:25 12/18/19 25 12/17/2024 urina lysis , dipst ick Urobilinogen 1 Not Available [address], [place], [address], 12/17/2024 17:49:25 12/18/19 25 12/17/2024 urina lysis , dipst ick Protein Negati ve Not Available [address], [place], [address], 12/17/2024 17:49:25 12/18/19 25 12/17/2024 urina lysis , dipst ick pH 7.0 Not Available [address], [place], [address], 12/17/2024 17:49:25 12/18/19 25 12/17/2024 urina lysis , dipst ick Blood Negati ve Not Available [address], [place], [address], 12/17/2024 17:49:25 12/18/19 25 12/17/2024 urina lysis , dipst ick Specific Weidman 1.015 Not Available [address], [address], 12/17/2024 17:49:25 12/18/19 25 12/17/2024 urina lysis , dipst ick Ketone Negati ve Not Available [address], [address], 12/17/2024 17:49:25 12/18/19 25 12/17/2024 urina lysis , dipst ick Bilirubin Negati ve Not Available [address], [address], 12/17/2024 17:49:25 12/18/19 25 12/17/2024 urina lysis , dipst ick Glucose Negati ve Not Available [address], [address], 12/17/2024 17:49:25 12/18/19 25 12/17/2024 urina lysis , dipst ick Appearance Clear Not Available [address], [address], 12/17/2024 17:49:25 12/18/19 25 12/17/2024 urina lysis , dipst ick Color Yellow Not Available [address], [address], 12/17/2024 17:49:25 Result Notes None recorded. Problems Name Problem SNOMED Code Status Onset Date Resolution Date Notes Provider Name and Address Organization Details Recorded Time Low back pain 701658486 Active 2024 RAI Alegria [address] [place] [address], [address] , [employer] 16:57:55 Generalized anxiety disorder 09925048 Active 2024 RAI Alegria [address] [place] [address], [address] , [employer] 03/13/202 5 08:42:42 Vertigo 088135216 Active 2024 RAI Alegria [address] [place] [address], [address] , [employer] 5 17:17:48 Acute urinary tract infection 488880432 Active 2024 RAI Alegria [address] [place] [address], [address] , [employer] 5 09:15:40 Nausea and vomiting 28915441 Active 2024 RAI Alegria [address] [place] [address], [address] , [employer] 5 15:37:35 Dysuria 87141280 Active 2024 RAI Alegria [address] [place] [address], [address] [place] [address] , [employer] 5 09:19:50 Overactive urinary bladder 726380358 Active 2024 RAI Alegria [address] [place] [address], [address] , [employer] 5 09:34:59 Surveillanc e of subcutaneou s contracepti ve implant Active 2019 Not Available [facility] 2 22:00:08 Contracepti on care management Active 2019 Problem Code: Z30.9; Problem Code Type: ICD-10; Not Available [facility] 2 22:00:08 Problem Notes None recorded. Procedures Surgical History Date Name Laterality Status Provider Name and Address Organization Details Recorded Time 08/21/19 24 Date of Last Pap Smear completed [employer] 08/31/2024 16:36:25 Caesarean Section completed [employer] 08/31/2024 16:36:26 Hernia Repair completed [employer] 08/31/2024 16:36:26 Tonsillectomy completed [employer] 08/31/2024 16:36:26 Imaging Results None recorded. [...] Last Updated DateTime 152.4 cm 30.8 kg/m2 19475.8 8 g 98 % 98 % 88 /min 98.3 [degF] 118 mm[Hg] 86 mm[Hg] [facility] [employer] 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 [employer] Information not available 08/31/2024 Have You Been To An Area Known To Be High Risk For COVID-19? No Information not available 08/31/2024 Are You Deaf Or Do You Have Serious Difficulty Hearing? No Information not available 08/31/2024 What Type Of Diet Are You Following? REGULAR Information not available 08/31/2024 Who Is Your Employer? [employer] Information not available 08/31/2024 How Many Days [...] Do You Have A Medical Power Of Diagnostic Cardiac Sonographer? No Information not available 08/31/2024 What Was [...] Functional Status Question Answer Note LastModified by [employer] Details LastModified Time Do you use any [...] Mental Status Question Answer Note LastModified by [employer] Details LastModified Time Do you feel stressed (tense, restless, nervous, or anxious, or unable to sleep at night)? [id number] Information not available 08/31/2024 Do you have [...] Stones N Blood Diseases N Hyperthyroidism N Blood Transfusion N Breast Cancer N Emergency room visit since last appointm ent. N Hypothyroidism N Lung Disease N Dermatologic Disorders N Depression Y COPD N Developmental or Behavioral Disorders N Defects or Inherited Disease N Breast Problem N Difficulty Swallowing N Anesthesia Complications N History of STI N Anxiety Disorder Y Meniere's disease N Autoimmune disease N Muscle, Joint, or Bone Problems N Vision or Eye Problems N Arthritis N Infertility N Polyps N Mental Disorder N Congenital Anomalies N Acid Reflux (GERD) N Cancer N Stroke N Neurologic/Epilepsy N Endometriosis N Bladder or Kidney Problems N High Cholesterol Y Liver Disease N Organ Transplant N Psychiatric/Mental Health Condition N Headaches N Schizophrenia N Fibromyalgia N Dialysis N Kidney Disease N Allergies/Hayfever N Heart [...] N Pulmonary Embolism N Tourette Syndrome N Pre-Eclampsia N Hypertension N Chronic Ear Infections N Osteoporosis N Chicken Pox N Autism Spectrum Disorder (ASD) N Thrombophilias N Gynecological History Statement/Question Response [...] unspecified formulation 8 completed Mirna Vice null, [employer] 08/31/2024 16:36:36 IPV 8 completed Mirna Vice null, [employer] 08/31/2024 16:36:36 IPV 9 completed Mirna Vice null, [employer] [facility] [employer] 08/31/2024 16:36:36 IPV 1 completed Mirna Vice null, [employer] 08/31/2024 16:36:36 IPV 7 completed Mirna Vice null, [employer] [facility] [employer] 08/31/2024 16:36:36 MMR 9 completed Mirna Vice null, [employer] 08/31/2024 16:36:36 MMR 9 completed Mirna Vice null, [employer] 08/31/2024 16:36:36 MMR 1 completed Mirna Vice null, [employer] 08/31/2024 16:36:36 COVID-19, mRNA, LNP-S, PF, 100 mcg/0.5mL dose or 50 mcg/0.25mL dose 2 completed Mirna Vice null, [employer] 08/31/2024 16:36:36 COVID-19, mRNA, LNP-S, PF, 100 mcg/0.5mL dose or 50 mcg/0.25mL dose 2 completed Mirna Vice null, [employer] 08/31/2024 16:36:36 Tdap 9 completed Mirna Vice null, [employer] 08/31/2024 16:36:36 Tdap 9 completed Mirna Vice null, [employer] 08/31/2024 16:36:36 Tdap 1 completed Mirna Vice null, [employer] 08/31/2024 16:36:36 varicella 2 completed Mirna Vice null, [employer] 08/31/2024 16:36:36 varicella 8 completed Mirna Vice null, [employer] 08/31/2024 16:36:36 DTP 9 completed Mirna Vice null, [employer] 08/31/2024 16:36:36 DTP 1 completed Mirna Vice null, [employer] 08/31/2024 16:36:36 Hep B, unspecified formulation 8 completed Mirna Vice null, [employer] 08/31/2024 16:36:36 Hep B, unspecified formulation 7 completed Mirna Vice null, [employer] 08/31/2024 16:36:36 OPV 8 completed Mirna Vice null, [employer] 08/31/2024 16:36:36 DTP-Hib 8 completed Mirna Vice null, [employer] 08/31/2024 16:36:36 DTP-Hib 8 completed Mirna Vice null, [employer] 08/31/2024 16:36:36 DTP-Hib 7 completed Mirna Vice null, [employer] 08/31/2024 16:36:36 Influenza, split virus, trivalent, preservative 9 completed Mirna Vice null, [employer] 08/31/2024 16:36:36 Influenza, split virus, trivalent, preservative 7 completed Mirna Vice null, [employer] 08/31/2024 16:36:36 HPV, quadrivalent 9 completed Mirna Vice null, [employer] 08/31/2024 16:36:36 Hep B, adolescent or pediatric 7 completed Mirna Vice null, [employer] 08/31/2024 16:36:36 Hep A, adult 8 completed Mirna Vice null, [employer] 08/31/2024 16:36:36 meningococcal MCV4P 9 completed Mirna Vice null, [employer] 08/31/2024 16:36:36 DTaP, unspecified formulation 9 completed Mirna Vice null, [employer] 08/31/2024 16:36:36 Influenza, split virus, quadrivalent, PF 6 completed Mirna Vice null, [employer] 08/31/2024 16:36:36 Influenza, split virus, quadrivalent, PF 9 completed Mirna Vice null, [employer] 08/31/2024 16:36:36 Past Encounters Encounter ID Performer Location Encounter Start Date Encounter Closed Date Diagnosis/Indication Diagnosis SNOMED-CT Code Diagnosis ICD10 Code Diagnosis Note [id number] RAI Alegria [address] [address] 11/30/2024 08:44:22 11/30/2024 09:16:08 Acute urinary tract infection 048055678 N39.0 Increase hydration, culture pending. RTC if not improving. [id number] RAI Alegria [address] [address] 12/17/2024 17:24:58 12/22/2024 13:17:24 Dysuria 71647984 R30.0 Leukocytes in urine 2757 89154 R82.998 Health Concerns Section Related Observation LastModified by Organization Detai ls LastModified Time None Recorded Concern Status LastModified by Organization Details LastModified Time None Recorded Payers Encounter Date Sequence Insurance Name Policy Number Policy Bella Covered Member ID Bella Member ID Guarantor Name 12/17/2024 1 [facility] [employer] Shanda Jaimes [id number] Shanda Jaimes Notes Date Note Type Note Provider Name and Address Organization Details Recorded Time 12/17/2024 text/html Patient was seen a few weeks ago [facility] potential [facility]. Has been given antibiotics, diflucan. She is still having urgency, frequency and burning when she urinates. Feels as if she does not empty bladder completely and that is making it hard to sleep. She denies itching, odor or discharge. RAI Alegria [address] [place] [address], [address], [facility] [employer] 12/22/2024 11:09:21 OBGyn Episode No OBEpisode recorded.
--- OUTSIDE RECORDS SUMMARY | 2025-01-08 15:41 | XMS_ITS | Continuity of Care Document ---
Author Organization [place] - [place] [facility] Address [address] [place] [address] Assessment No assessment recorded. Plan of Treatment Reminders Order Date Submit Date Provider Last Modified By Organization Details Last Modified Time Details Appointments None recorded. Lab urinalysis, dipstick 2024 025 [email or web address] [facility], [address] [place], [address], 09:16:03 culture, urine 2024 025 [facility], [address] [place] [address], [place], [address], 07:12:41 Referral None recorded. Procedures None recorded. Surgeries None recorded. Imaging None recorded. Medication Orders levofloxaci n 500 mg tablet 2024 025 [facility], [address] [facility], [place], [address], 17:44:24 Patient TargetsNo targets recorded. Patient InstructionsNo instructions recorded. Reason for Referral None Reported. Results Created Date Observation Date Name Description Value Unit Range Abnormal Flag Note LastModifiedBy Organization Detail LastModifiedTime 12/01/1911/30/2024 urina lysis , dipst ick Leukocytes Large Not Available [facility] [address] [place], [address], 11/30/2024 09:02:07 12/01/19 25 11/30/2024 urina lysis , dipst ick Nitrite negati ve Not Available [address], [place], [address], 11/30/2024 09:02:07 12/01/19 25 11/30/2024 urina lysis , dipst ick Urobilinogen 1 Not Available [address], [place], [address], 11/30/2024 09:02:07 12/01/19 25 11/30/2024 urina lysis , dipst ick Protein Negati ve Not Available [address], [address], 11/30/2024 09:02:07 12/01/19 25 11/30/2024 urina lysis , dipst ick pH 7.0 Not Available [address], [place], [address], 11/30/2024 09:02:07 12/01/19 25 11/30/2024 urina lysis , dipst ick Blood Negati ve Not Available [address], [address], 11/30/2024 09:02:07 12/01/19 25 11/30/2024 urina lysis , dipst ick Specific [place] 1.025 Not Available [address], [address], 11/30/2024 09:02:07 12/01/19 25 11/30/2024 urina lysis , dipst ick Ketone Negati ve Not Available [address], [address], 11/30/2024 09:02:07 12/01/19 25 11/30/2024 urina lysis , dipst ick Bilirubin Negati ve Not Available [address], [address], 11/30/2024 09:02:07 12/01/19 25 11/30/2024 urina lysis , dipst ick Glucose Negati ve Not Available [facility] [address] [place] [address], [address], 11/30/2024 09:02:07 12/01/1911/30/2024 urina lysis , dipst ick Appearance Slight ly Cloudy Not Available [address], [address], 11/30/2024 09:02:07 12/01/1911/30/2024 urina lysis , dipst ick Color Dark Yellow Not Available [address], [address], 11/30/2024 09:02:07 Result Notes None recorded. Problems Name Problem SNOMED Code Status Onset Date Resolution Date Notes Provider Name and Address Organization Details Recorded Time Low back pain 667823682 Active 2024 RAI Alegria [address] [place] [address], [address] , [employer] 16:57:55 Generalized anxiety disorder 82236594 Active 2024 RAI Alegria [address] [place] [address], [address] , [employer] 5 08:42:42 Vertigo 686802791 Active 2024 RAI Alegria [address] [place] [address], [address] , [employer] 5 17:17:48 Acute urinary tract infection 338011939 Active 2024 RAI Alegria [address] [place] [address], [address] , [employer] 5 09:15:40 Nausea and vomiting 89171234 Active 2024 RAI Alegria [address] [place] [address], [address] , [employer] 5 15:37:35 Dysuria 68400873 Active 2024 RAI Alegria [address] [place] [address], [address] , [employer] 5 09:19:50 Overactive urinary bladder 328077462 Active 2024 RAI Alegria [address] [place] [address], [address] , [employer] 5 09:34:59 Surveillanc e of subcutaneou s contracepti ve implant Active 2019 Not Available [facility] 2 22:00:08 Contracepti on care management Active 2019 Problem Code: Z30.9; Problem Code Type: ICD-10; Not Available [facility] 2 22:00:08 Problem Notes None recorded. Procedures Surgical History Date Name Laterality Status Provider Name and Address Organization Details Recorded Time 08/21/19 24 Date of Last Pap Smear completed [employer] 08/31/2024 16:36:25 Caesarean Section completed [employer] 08/31/2024 16:36:26 Hernia Repair completed [employer] 08/31/2024 16:36:26 Tonsillectomy completed [employer] 08/31/2024 16:36:26 Imaging Results None recorded. Procedure [...] height Body mass index (BMI) Body weight Heart rate Oxygen saturation Oxygen saturation in Arterial blood by Pulse oximetry Body temperature Systolic blood pressure Diastolic blood pressure Provider Name and Address Organization Details Last Updated DateTime 5 152.4 cm 30.9 kg/m2 48440.5 9 g 80 /min 98 % 98 % 98.6 [degF] 118 mm[Hg] 82 mm[Hg] Sandrine Munguia [facility] [employer] 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 [employer] Information not available 08/31/2024 Have You Been To An Area Known To Be High Risk For COVID-19? No Information not available 08/31/2024 Are You Deaf Or Do You Have Serious Difficulty Hearing? No Information not available 08/31/2024 What Type Of Diet Are You Following? REGULAR Information not available 08/31/2024 Who Is Your Employer? [employer] Information not available 08/31/2024 How Many Days [...] Do You Have A Medical Power Of Graduate Assistant Athletic Trainer? No Information not available 08/31/2024 What Was [...] Organizat ion Details LastModified Time Do you use any [...] Mental Status Question Answer Note LastModified by Organizat ion Details LastModified Time Do you feel stressed (tense, restless, nervous, or anxious, or unable to sleep at night)? [id number] Information not available 08/31/2024 Do you have [...] Artery Disease N Other N Gout N Blood Diseases N Kidney Stones N Hyperthyroidism N Blood Transfusion N Breast Cancer N Emergency room visit since last appointm ent. N Lung Disease N COPD N Depression Y Dermatologic Disorders N Hypothyroidism N Defects or Inherited Disease N Developmental or Behavioral Disorders N Breast Problem N Difficulty Swallowing N [...] N High Cholesterol Y Liver Disease N Psychiatric/Mental Health Condition N Organ Transplant N Dialysis N Schizophrenia N Fibromyalgia N Headaches N Kidney Disease N Allergies/Hayfever N Heart Problems N Ear or Hearing Problems N Hospitalizations N Learning Disorder N Artificial Joints N Thyroid Problems N GI Problems N Acne Y ADD/ADHD N Eating Disorder N Anemia N Constipation N Mental Illness N Diabetes N Ovarian Cancer N Bedwetting N Hepatitis/Liver Disease N Tuberculosis N Eczema N Abuse/Domestic Violence N Diverticulitis N Asthma N Trauma/Violence N Substance Abuse [...] unspecified formulation 8 completed Mirna Vice null, [employer] 08/31/2024 16:36:36 IPV 8 completed Mirna Vice null, [employer] 08/31/2024 16:36:36 IPV 9 completed Mirna Vice null, [employer] 08/31/2024 16:36:36 IPV 1 completed Mirna Vice null, [employer] 08/31/2024 16:36:36 IPV 7 completed Mirna Vice null, [employer] [facility] 08/31/2024 16:36:36 MMR 9 completed Mirna Vice null, [employer] [facility] [facility] 08/31/2024 16:36:36 MMR 9 completed Mirna Vice null, [employer] [facility] 08/31/2024 16:36:36 MMR 1 completed Mirna Vice null, [employer] [facility] 08/31/2024 16:36:36 COVID-19, mRNA, LNP-S, PF, 100 mcg/0.5mL dose or 50 mcg/0.25mL dose 2 completed Mirna Vice null, [employer] [facility] [employer] 08/31/2024 16:36:36 COVID-19, mRNA, LNP-S, PF, 100 mcg/0.5mL dose or 50 mcg/0.25mL dose 2 completed Mirna Vice null, [employer] [facility] [employer] 08/31/2024 16:36:36 Tdap 9 completed Mirna Vice null, [employer] [facility] [employer] 08/31/2024 16:36:36 Tdap 9 completed Mirna Vice null, [employer] [facility] [employer] 08/31/2024 16:36:36 Tdap 1 completed Mirna Vice null, [employer] [facility] [employer] 08/31/2024 16:36:36 varicella 2 completed Mirna Vice null, [employer] [facility] [employer] 08/31/2024 16:36:36 varicella 8 completed Mirna Vice null, [employer] [facility] [employer] 08/31/2024 16:36:36 DTP 9 completed Mirna Vice null, [employer] [facility] [employer] 08/31/2024 16:36:36 DTP 1 completed Mirna Vice null, [employer] [facility] [employer] 08/31/2024 16:36:36 Hep B, unspecified formulation 8 completed Mirna Vice null, [employer] 08/31/2024 16:36:36 Hep B, unspecified formulation 7 completed Mirna Vice null, [employer] 08/31/2024 16:36:36 OPV 8 completed Mirna Vice null, [employer] 08/31/2024 16:36:36 DTP-Hib 8 completed Mirna Vice null, [employer] 08/31/2024 16:36:36 DTP-Hib 8 completed Mirna Vice null, [employer] 08/31/2024 16:36:36 DTP-Hib 7 completed Mirna Vice null, [employer] 08/31/2024 16:36:36 Influenza, split virus, trivalent, preservative 9 completed Imrna Vice null, [employer] 08/31/2024 16:36:36 Influenza, split virus, trivalent, preservative 7 completed Mirna Vice null, [employer] 08/31/2024 16:36:36 HPV, quadrivalent 9 completed Mirna Vice null, [employer] 08/31/2024 16:36:36 Hep B, adolescent or pediatric 7 completed Mirna Vice null, [employer] 08/31/2024 16:36:36 Hep A, adult 8 completed Mirna Vice null, [employer] 08/31/2024 16:36:36 meningococcal MCV4P 9 completed Mirna Vice null, [employer] 08/31/2024 16:36:36 DTaP, unspecified formulation 9 completed Mirna Vice null, [employer] 08/31/2024 16:36:36 Influenza, split virus, quadrivalent, PF 6 completed Mirna Vice null, [facility] 08/31/2024 16:36:36 Influenza, split virus, quadrivalent, PF 9 completed Mirna Vice null, [facility] 08/31/2024 16:36:36 Past Encounters Encounter ID Performer Location Encounter Start Date Encounter Closed Date Diagnosis/Indication Diagnosis SNOMED-CT Code Diagnosis ICD10 Code Diagnosis Note [id number] RAI Alegria [facility] [address] [place] [address] 11/30/2024 08:44:22 11/30/2024 09:16:08 Acute urinary tract infection 887646976 N39.0 Increase hydration, culture pending. RTC if not improving. Health Concerns Section Related Observation LastModified by Organization Detai ls LastModified Time None Recorded Concern Status LastModified by Organization Details LastModified Time None Recorded Payers Encounter Date Sequence Insurance Name Policy Number Policy Bella Covered Member ID Bella Member ID Guarantor Name 11/30/2024 1 [facility] [employer] Shanda Jaimes [id number] Shanda Jaimes Notes Date Note Type Note Provider Name and Address Organization Details Recorded Time 11/30/2024 text/html Dysuria, frequency, feelings of incomplete emptying of bladder X 1 week. Some nausea. No fever.Has been at the hospital with her mother who has been very ill. RAI Alegria [address] [place] [address], [address], [facility] 11/30/2024 09:20:36 OBGyn Episode No OBEpisode recorded.
--- OUTSIDE RECORDS SUMMARY | 2025-01-08 15:42 | XMS_ITS | Data Portability ---
Author Organization [facility] [place] - [place] Address [address] [place] [address] Assessment No assessment recorded. Plan of Treatment Reminders Order Date Submit Date Provider Last Modified By Organization Details Last Modified Time Details Appointments None recorded. Lab urinalysis, dipstick [address], [address] [place], [address], 5 17:56:47 vaginal pathogens panel, JUANJOSE+probe, vaginal fluid 2024 025 [place] [facility] ([facility]), [address] [place], [address], 5 07:09:00 culture, urine 2024 025 [place] [facility] ([place]), [address] [place], [address], 5 07:09:00 urinalysis, dipstick [address], [address] [place], [address], 5 09:16:03 culture, urine 2024 025 [facility] [facility] [address] [place], [address], 5 07:12:41 lipid panel, serum 2024 025 [facility]), [address] [place], [address], 5 07:09:26 CMP, serum or plasma 2024 025 [facility]), [address] [place], [address], 5 07:09:26 CBC w/ auto diff 2024 025 [facility]), [address] [place], [address], 5 07:09:25 TSH, ultra-sensi tive, serum 2024 025 [facility]), [address] [place], [address], 5 07:09:27 vitamin D, 25-hydroxy, total, serum 2024 025 [facility]), [address] [place], [address], 5 07:09:27 Hepatitis C IgG Ab, qual, serum 2024 025 [facility]), [address] [place], [address], 5 07:09:27 HIV 1 + 2, meaningful use set 2024 025 [facility]), [address] [place], [address], 5 07:09:28 Referral None recorded. Procedures None recorded. Surgeries None recorded. Imaging None recorded. Medication Orders levofloxaci n 500 mg tablet 2024 025 [facility], [address] [place], [address], 17:44:24 Medrol (Lenny) 4 mg tablets in a dose pack 2024 025 [facility], [address] [place] [address], [address], 09:16:12 meclizine 25 mg tablet 2024 025 [facility], [address] [place] [address], [address], 09:16:10 Patient TargetsNo targets recorded. Patient Instructions Encounter Date Encounter Id Patient Instructions Last Modified By Organization Details Last Modified Time 08/31/2024 [id number] back care and preventing injuries: care instructions [email or web address] Not available 08/31/2024 17:18:01 getting back to normal after low back pain: care instructions [email or web address] Not available 08/31/2024 17:18:01 learning about relief for back pain Not available 08/31/2024 17:18:01 body mass index: care instructions [email or web address] Not available 09/01/2024 11:37:34 learning about healthy weight [email or web address] Not available 09/01/2024 11:37:34 12/17/2024 [id number] painful urinatio n (dysuria): care instructions [email or web address] Not available 12/17/2024 17:56:47 Reason for Referral None Reported. Results Created Date Observation Date Name Description Value Unit Range Abnormal Flag Note LastModifiedBy Organization Detail LastModifiedTime 09/01/1909/02/2024 CBC WITH DIFFE RENTI AL/PL ATELE T WBC 6.1 x10e3 /uL 3.4-10 .8 normal Not Available [facility] ([facility]) [address] [place], [address], 09/03/2024 07:09:25 09/01/19 25 09/02/2024 CBC WITH DIFFE RENTI AL/PL ATELE T RBC 4.59 x10e6 /uL 3.77-5 .28 normal Not Available [facility] ([facility]) [address] [place], [address], 09/03/2024 07:09:25 09/01/1909/02/2024 CBC WITH DIFFE RENTI AL/PL ATELE T hemoglobin 13.7 g/dL 11.1-1 5.9 normal Not Available [facility] ([facility]) [address] [place], [address], 09/03/2024 07:09:25 09/01/1909/02/2024 CBC WITH DIFFE RENTI AL/PL ATELE T hematocrit 42.4 % 34.0-4 6.6 normal Not Available [facility] ([facility]) [address] [place], [address], 09/03/2024 07:09:25 09/01/1909/02/2024 CBC WITH DIFFE RENTI AL/PL ATELE T MCV 92 fL 79-97 normal Not Available [facility] ([facility]) [address] [place], [address], 09/03/2024 07:09:25 09/01/1909/02/2024 CBC WITH DIFFE RENTI AL/PL ATELE T MCH 29.8 pg 26.6-3 3.0 normal Not Available [facility] ([facility]) [address] [place], [address], 09/03/2024 07:09:25 09/01/1909/02/2024 CBC WITH DIFFE RENTI AL/PL ATELE T MCHC 32.3 g/dL 31.5-3 5.7 normal Not Available [facility] ([facility]) [address] [place], [address], 09/03/2024 07:09:25 09/01/19 25 09/02/2024 CBC WITH DIFFE RENTI AL/PL ATELE T RDW 12.5 % 11.7-1 5.4 Not Available [facility] ([facility]) [address] [facility] [place], [address], 09/03/2024 07:09:25 09/01/19 25 09/02/2024 CBC WITH DIFFE RENTI AL/PL ATELE T platelets 350 x10e3 /uL 150-45 0 normal Not Available [facility] ([facility]) [address] [facility], [place], [address], 09/03/2024 07:09:25 09/01/19 25 09/02/2024 CBC WITH DIFFE RENTI AL/PL ATELE T neutrophils 59 % not estab. normal Not Available [facility] ([facility]) [address] [facility], [place], [address], 09/03/2024 07:09:25 09/01/19 25 09/02/2024 CBC WITH DIFFE RENTI AL/PL ATELE T lymphs 31 % not estab. normal Not Available [facility] ([facility]) [address] [facility], [place], [address], 09/03/2024 07:09:25 09/01/19 25 09/02/2024 CBC WITH DIFFE RENTI AL/PL ATELE T monocytes 8 % not estab. normal Not Available [facility] ([facility]) [address] [facility], [place], [address], 09/03/2024 07:09:25 09/01/19 25 09/02/2024 CBC WITH DIFFE RENTI AL/PL ATELE T eos 1 % not estab. normal Not Available [facility] ([facility]) [address] [facility], [place], [address], 09/03/2024 07:09:25 09/01/19 25 09/02/2024 CBC WITH DIFFE RENTI AL/PL ATELE T basos 1 % not estab. normal Not Available [facility] ([facility]) [address] [facility], [place], [address], 09/03/2024 07:09:25 09/01/1909/02/2024 CBC WITH DIFFE RENTI AL/PL ATELE T immature cells [employer] Not Available [facility] ([facility]) [address] [place], [address], 09/03/2024 07:09:25 09/01/1909/02/2024 CBC WITH DIFFE RENTI AL/PL ATELE T neutrophils (absolute) 3.6 x10e3 /uL 1.4-7. 0 normal Not Available [facility] ([facility]) [address] [place], [address], 09/03/2024 07:09:25 09/01/1909/02/2024 CBC WITH DIFFE RENTI AL/PL ATELE T lymphs (absolute) 1.9 x10e3 /uL 0.7-3. 1 normal Not Available [facility] ([facility]) [address] [place], [address], 09/03/2024 07:09:25 09/01/19 25 09/02/2024 CBC WITH DIFFE RENTI AL/PL ATELE T monocytes(ab solute) 0.5 x10e3 /uL 0.1-0. 9 normal Not Available [facility] ([facility]) [address] [place], [address], 09/03/2024 07:09:25 09/01/1909/02/2024 CBC WITH DIFFE RENTI AL/PL ATELE T eos (absolute) 0.1 x10e3 /uL 0.0-0. 4 normal Not Available [facility] ([facility]) [address] [place], [address], 09/03/2024 07:09:25 09/01/19 25 09/02/2024 CBC WITH DIFFE RENTI AL/PL ATELE T baso (absolute) 0.1 x10e3 /uL 0.0-0. 2 normal Not Available [facility] ([facility]) [address] [place], [address], 09/03/2024 07:09:25 09/01/19 25 09/02/2024 CBC WITH DIFFE RENTI AL/PL ATELE T immature granulocytes 0 % not estab. Not Available [facility] ([facility]) [address] [facility], [place], [address], 09/03/2024 07:09:25 09/01/19 25 09/02/2024 CBC WITH DIFFE RENTI AL/PL ATELE T immature grans (abs) 0.0 x10e3 /uL 0.0-0. 1 Not Available [facility] ([facility]) [address] [facility], [place], [address], 09/03/2024 07:09:25 09/01/19 25 09/02/2024 CBC WITH DIFFE RENTI AL/PL ATELE T NRBC [employer] Not Available [facility] ([facility]) [address] [facility], [place], [address], 09/03/2024 07:09:25 09/01/19 25 09/02/2024 CBC WITH DIFFE RENTI AL/PL ATELE T hematology comments: [employer] Not Available [facility] ([facility]) [address] [facility], [place], [address], 09/03/2024 07:09:25 09/01/19 25 09/02/2024 COMP. METAB OLIC PANEL (14) glucose 69 mg/dL 70-99 below low normal Not Available [facility] ([facility]) [address] [place], [address], 09/03/2024 07:09:26 09/01/1909/02/2024 COMP. METAB OLIC PANEL (14) BUN 9 mg/dL 6-20 normal Not Available [facility] ([facility]) [address] [place], [address], 09/03/2024 07:09:26 09/01/19 25 09/02/2024 COMP. METAB OLIC PANEL (14) creatinine 0.82 mg/dL 0.57-1 .00 normal Not Available [facility] ([facility]) [address] [facility] [place], [address], 09/03/2024 07:09:26 09/01/19 25 09/02/2024 COMP. METAB OLIC PANEL (14) eGFR 100 mL/mi n/1.7 3 >59 normal Not Available [facility] ([facility]) [address] [facility], [place], [address], 09/03/2024 07:09:26 09/01/19 25 09/02/2024 COMP. METAB OLIC PANEL (14) BUN/creatini ne ratio 11 9-23 normal Not Available [facility] ([facility]) [address] [facility], [place], [address], 09/03/2024 07:09:26 09/01/19 25 09/02/2024 COMP. METAB OLIC PANEL (14) sodium 137 mmol/ L 134-14 4 normal Not Available [facility] ([facility]) [address] [place], [address], 09/03/2024 07:09:26 09/01/19 25 09/02/2024 COMP. METAB OLIC PANEL (14) potassium 4.2 mmol/ L 3.5-5. 2 normal Not Available [facility] ([facility]) [address] [place], [address], 09/03/2024 07:09:26 09/01/19 25 09/02/2024 COMP. METAB OLIC PANEL (14) chloride 101 mmol/ L 96-106 normal Not Available [facility] ([facility]) [address] [place], [address], 09/03/2024 07:09:26 09/01/19 25 09/02/2024 COMP. METAB OLIC PANEL (14) carbon dioxide, total 21 mmol/ L 20-29 normal Not Available [facility] ([facility]) [address] [facility] [place], [address], 09/03/2024 07:09:26 09/01/19 25 09/02/2024 COMP. METAB OLIC PANEL (14) calcium 9.8 mg/dL 8.7-10 .2 normal Not Available [facility] ([facility]) [address] [facility] [place], [address], 09/03/2024 07:09:26 09/01/19 25 09/02/2024 COMP. METAB OLIC PANEL (14) protein, total 7.6 g/dL 6.0-8. 5 normal Not Available [facility] ([facility]) [address] [facility] [place], [address], 09/03/2024 07:09:26 09/01/19 25 09/02/2024 COMP. METAB OLIC PANEL (14) albumin 4.8 g/dL 4.0-5. 0 normal Not Available [facility] ([facility]) [address] [facility] [place], [address], 09/03/2024 07:09:26 09/01/19 25 09/02/2024 COMP. METAB OLIC PANEL (14) globulin, total 2.8 g/dL 1.5-4. 5 Not Available [facility] ([facility]) [address] [facility] [place], [address], 09/03/2024 07:09:26 09/01/19 25 09/02/2024 COMP. METAB OLIC PANEL (14) bilirubin, total 0.3 mg/dL 0.0-1. 2 normal Not Available [facility] ([facility]) [address] [facility] [place], [address], 09/03/2024 07:09:26 09/01/19 25 09/02/2024 COMP. METAB OLIC PANEL (14) alkaline phosphatase 85 IU/L 44-121 normal Not Available [facility] ([facility]) [address] [facility] [place], [address], 09/03/2024 07:09:26 09/01/19 25 09/02/2024 COMP. METAB OLIC PANEL (14) AST (SGOT) 18 IU/L 0-40 normal Not Available [facility] ([facility]) [address] [facility] [place], [address], 09/03/2024 07:09:26 09/01/19 25 09/02/2024 COMP. METAB OLIC PANEL (14) ALT (SGPT) 16 IU/L 0-32 normal Not Available [facility] ([facility]) [address] [facility] [place], [address], 09/03/2024 07:09:26 09/01/19 25 09/02/2024 LIPID PANEL cholesterol, total 196 mg/dL 100-19 9 normal Not Available [facility] ([facility]) [address] [facility] [place], [address], 09/03/2024 07:09:26 09/01/19 25 09/02/2024 LIPID PANEL triglyceride s 113 mg/dL 0-149 normal Not Available [facility] ([facility]) [address] [facility] [place], [address], 09/03/2024 07:09:26 09/01/19 25 09/02/2024 LIPID PANEL HDL cholesterol 48 mg/dL >39 normal Not Available [facility] ([facility]) [address] [facility] [place], [address], 09/03/2024 07:09:26 09/01/19 25 09/02/2024 LIPID PANEL VLDL cholesterol ofelia 20 mg/dL 5-40 Not Available [facility] ([facility]) [address] [facility] [place], [address], 09/03/2024 07:09:26 09/01/19 25 09/02/2024 LIPID PANEL LDL chol calc ([facility]) 128 mg/dL 0-99 above high normal Not Available [facility] ([facility]) [address] [facility], [place], [address], 09/03/2024 07:09:26 09/01/1909/02/2024 LIPID PANEL LDL calc comment: [employer] Not Available [facility] ([facility]) [address] [facility], [place], [address], 09/03/2024 07:09:26 09/01/19 25 09/02/2024 HCV ANTIB DORIE CASCA DE(PC R/GEN O) HCV Ab Non Reacti ve non reacti ve Not Available [facility] ([facility]) [address] [facility], [place], [address], 09/03/2024 07:09:27 09/01/1909/02/2024 HCV ANTIB DORIE CASCA DE(PC R/GEN O) interpretati on: Commen t Not infec pk with HCV unles s early or acute infec tion is suspe cted (whic h may be delay ed in an immun ocomp romis ed indiv idual ), or other evide nce exist s to indic ate HCV infec tion. Not Available [facility] ([facility]) [address] [facility], [place], [address], 09/03/2024 07:09:27 09/01/1909/02/2024 TSH TSH 1.110 uIU/m L 0.450- 4.500 normal Not Available [facility] ([facility]) [address] [facility], [place], [address], 09/03/2024 07:09:27 09/01/1909/03/2024 VITAM IN D, 25-HY DROXY vitamin D, 25-hydroxy 91.3 NG/mL 30.0-1 00.0 Vitam in D defic iency has been defin ed by the Insti tute of Medic ine and an Endoc rine Socie ty pract ice guide line as a level of serum 25-OH vitam in D less than 20 ng/mL (1,2) . The Endoc rine Socie ty went on to furth er defin e vitam in D insuf ficie ncy as a level betwe en 21 and 29 ng/mL (2). 1. IOM (Inst itute of Medic ine). 2010. Dieta ry refer ence intak es for calci um and D. Yahir mace [place]: The [facility] . 2. Mary Kate askew [place], Valarie oconnor [place], Bisch off-F errar i YOON, et al. Evalu ation , treat ment, and preve ntion of vitam in D defic iency : an Endoc rine Socie ty clini ofelia pract ice guide line. JCEM. 2010; 96(7) :1911 -30. Not Available [facility] ([facility]) [address] [place], [address], 09/03/2024 07:09:27 09/01/1909/02/2024 HIV AB/P2 4 AG WITH REFLE X HIV Ab/P24 Ag screen Non Reacti ve non reacti ve HIV Negat marjorie HIV-1 /HIV- 2 antib odies and HIV-1 p24 antig en were NOT detec pk. There is no labor atory evide nce of HIV infec tion. Not Available [facility] ([facility]) [address] [place], [address], 09/03/2024 07:09:27 12/01/1912/02/2024 URINE CULTU RE, ROUTI NE urine culture, routine Final report Not Available [facility] ([facility]) [address] [place], [address], 12/02/2024 07:12:41 12/01/19 25 12/02/2024 URINE CULTU RE, ROUTI NE result 1 COMMEN T Mixed uroge nital kike 10,00 0-25, 000 colon y formi ng units per mL Not Available [facility] ([facility]) [address], [place], [address], 12/02/2024 07:12:41 12/01/19 25 11/30/2024 urina lysis , dipst ick Leukocytes Large Not Available [address], [place], [address], 11/30/2024 09:02:07 12/01/19 25 11/30/2024 urina lysis , dipst ick Nitrite negati ve Not Available [address], [address], 11/30/2024 09:02:07 12/01/19 25 11/30/2024 urina lysis , dipst ick Urobilinogen 1 Not Available [address], [place], [address], 11/30/2024 09:02:07 12/01/19 25 11/30/2024 urina lysis , dipst ick Protein Negati ve Not Available [address], [place], [address], 11/30/2024 09:02:07 12/01/19 25 11/30/2024 urina lysis , dipst ick pH 7.0 Not Available [address], [address], 11/30/2024 09:02:07 12/01/19 25 11/30/2024 urina lysis , dipst ick Blood Negati ve Not Available [address], [address], 11/30/2024 09:02:07 12/01/19 25 11/30/2024 urina lysis , dipst ick Specific [facility] 1.025 Not Available [address], [place], [address], 11/30/2024 09:02:07 12/01/19 25 11/30/2024 urina lysis , dipst ick Ketone Negati ve Not Available [address], [address], 11/30/2024 09:02:07 12/01/19 25 11/30/2024 urina lysis , dipst ick Bilirubin Negati ve Not Available [address], [address], 11/30/2024 09:02:07 12/01/19 25 11/30/2024 urina lysis , dipst ick Glucose Negati ve Not Available [address], [address], 11/30/2024 09:02:07 12/01/19 25 11/30/2024 urina lysis , dipst ick Appearance Slight ly Cloudy Not Available [address], [address], 11/30/2024 09:02:07 12/01/1911/30/2024 urina lysis , dipst ick Color Dark Yellow Not Available [address], [address], 11/30/2024 09:02:07 12/18/1912/20/2024 NUSWA B VAGIN ITIS PLUS (VG+) atopobium vaginae Low - 0 score Not Available [facility] ([facility]) [address] [facility], [place], [address], 12/22/2024 07:09:00 12/18/19 25 12/20/2024 NUA B VAGIN ITIS PLUS (VG+) bvab 2 Low - 0 score Not Available [facility] ([facility]) [address] [place], [address], 12/22/2024 07:09:00 12/18/19 25 12/20/2024 NUA B VAGIN ITIS PLUS (VG+) megasphaera 1 Low - 0 score Calcu late total score by makenna bland the 3 indiv idual bacte rial vagin osis (BV) marke r score s toget her. Total score is inter prete d as follo ws: Total score 0-1: Indic ates the absen ce of BV. Total score 2: Indet ermin ate for BV. Addit ional clini ofelia data shoul d be evalu ated to estab monica a diagn osis. Total score 3-6: Indic ates the prese nce of BV. Not Available [facility] ([facility]) [address] [place], [address], 12/22/2024 07:09:00 12/18/1912/20/2024 NUA B VAGIN ITIS PLUS (VG+) tre albicans, JUANJOSE Negati ve negati ve Not Available [facility] ([facility]) [address] [place], [address], 12/22/2024 07:09:00 12/18/1912/20/2024 NUA B VAGIN ITIS PLUS (VG+) tre glabrata, JUANJOSE Negati ve negati ve Not Available [facility] ([facility]) [address] [place], [address], 12/22/2024 07:09:00 12/18/19 25 12/22/2024 NUA B VAGIN ITIS PLUS (VG+) trich vag by JUANJOSE Negati ve negati ve Not Available [facility] ([facility]) [address] [place], [address], 12/22/2024 07:09:00 12/18/19 25 12/22/2024 NUSWA B VAGIN ITIS PLUS (VG+) chlamydia trachomatis, JUANJOSE Negati ve negati ve Not Available [facility] ([facility]) [address] [facility], [place], [address], 12/22/2024 07:09:00 12/18/19 25 12/22/2024 NUSWA B VAGIN ITIS PLUS (VG+) neisseria gonorrhoeae, JUANJOSE Negati ve negati ve Not Available [facility] ([facility]) [address] [facility], [place], [address], 12/22/2024 07:09:00 12/18/19 25 12/20/2024 URINE CULTU RE, ROUTI NE urine culture, routine Final report Not Available [facility] ([facility]) [address] [facility], [place], [address], 12/22/2024 07:09:00 12/18/19 25 12/20/2024 URINE CULTU RE, ROUTI NE result 1 No growth Not Available [facility] ([facility]) [address] [facility], [place], [address], 12/22/2024 07:09:00 12/18/19 25 12/17/2024 urina lysis , dipst ick Leukocytes Trace Not Available [facility] [address] [place] [address], [address], 12/17/2024 17:49:25 12/18/19 25 12/17/2024 urina lysis , dipst ick Nitrite negati ve Not Available [address], [address], 12/17/2024 17:49:25 12/18/19 25 12/17/2024 urina lysis , dipst ick Urobilinogen 1 Not Available [address], [place], [address], 12/17/2024 17:49:25 12/18/19 25 12/17/2024 urina lysis , dipst ick Protein Negati ve Not Available [address], [place], [address], 12/17/2024 17:49:25 12/18/19 25 12/17/2024 urina lysis , dipst ick pH 7.0 Not Available [address], [place], [address], 12/17/2024 17:49:25 12/18/19 25 12/17/2024 urina lysis , dipst ick Blood Negati ve Not Available [address], [place], [address], 12/17/2024 17:49:25 12/18/19 25 12/17/2024 urina lysis , dipst ick Specific [facility] 1.015 Not Available [address], [place], [address], 12/17/2024 17:49:25 12/18/19 25 12/17/2024 urina lysis , dipst ick Ketone Negati ve Not Available [address], [place], [address], 12/17/2024 17:49:25 12/18/19 25 12/17/2024 urina lysis , dipst ick Bilirubin Negati ve Not Available [address], [place], [address], 12/17/2024 17:49:25 12/18/19 25 12/17/2024 urina lysis , dipst ick Glucose Negati ve Not Available [facility] [address] [place], [place] [address]ther [facility], [place], [address], 12/17/2024 17:49:25 12/18/1912/17/2024 urina lysis , dipst ick Appearance Clear Not Available [facility] [address] [place] [address], [address], 12/17/2024 17:49:25 12/18/1912/17/2024 urina lysis , dipst ick Color Yellow Not Available [facility] [address] [place] [address], [address], 12/17/2024 17:49:25 Result Notes None recorded. Problems Name Problem SNOMED Code Status Onset Date Resolution Date Notes Provider Name and Address Organization Details Recorded Time Low back pain 241286520 Active 20[address]I [address]ria [address] [place] [address], [address] , [email or web address] 16:57:55 Generalized anxiety disorder 85466614 Active 2024 RAI Alegria [address] [place] [address], [address] [place] [address] , [employer] 08:42:42 Vertigo 313454225 Active 2024 RAI Alegria [address] [place] [address], [address] [place] [address] , [email or web address] 17:17:48 Acute urinary tract infection 241177337 Active 2024 RAI Alegria [address] [place] [address], [address] , [email or web address] 09:15:40 Nausea and vomiting 23619912 Active 2024 RAI Alegria [address] [place] [address], [address] , [email or web address] 05/05/202 5 15:37:35 Dysuria 59694000 Active 2024 RAI Alegria [address] [place], [address] , [employer] 5 09:19:50 Overactive urinary bladder 077125451 Active 2024 RAI Alegria [address] [place], [address] , [employer] 5 09:34:59 Surveillanc e of subcutaneou s contracepti ve implant Active 2019 Not Available [facility] 2 22:00:08 Contracepti on care management Active 2019 Problem Code: Z30.9; Problem Code Type: ICD-10; Not Available [facility] 2 22:00:08 Problem Notes None recorded. Procedures Surgical History Date Name Laterality Status Provider Name and Address Organization Details Recorded Time 08/21/19 24 Date of Last Pap Smear completed [employer] 08/31/2024 16:36:25 Caesarean Section completed [employer] 08/31/2024 16:36:26 Hernia Repair completed [employer] 08/31/2024 16:36:26 Tonsillectomy completed [employer] 08/31/2024 16:36:26 Imaging Results None recorded. [...] No t Available Vitals Date Recorded Body weight Body mass index (BMI) Body height Heart rate Oxygen saturation Oxygen saturation in Arterial blood by Pulse oximetry Body temperature Systolic blood pressure Diastolic blood pressure Provider Name and Address Organization Details Last Updated DateTime 5 70353.8 8 g 30.8 kg/m2 152.4 cm 86 /min 96 % 96 % 98.3 [degF] 108 mm[Hg] 72 mm[Hg] [facility] [employer] 5 16:42:01 Date Recorded Body height Body mass index (BMI) Body weight Heart rate Oxygen saturation Oxygen saturation in Arterial blood by Pulse oximetry Body temperature Systolic blood pressure Diastolic blood pressure Provider Name and Address Organization Details Last Updated DateTime 5 152.4 cm 30.9 kg/m2 79387.5 9 g 80 /min 98 % 98 % 98.6 [degF] 118 mm[Hg] 82 mm[Hg] Sandrine Munguia [employer] 5 09:00:55 Date Recorded Body height Body mass index (BMI) Body weight Oxygen saturation Oxygen saturation in Arterial blood by Pulse oximetry Heart rate Body temperature Systolic blood pressure Diastolic blood pressure Provider Name and Address Organization Details Last Updated DateTime 152.4 cm 30.8 kg/m2 66425.8 8 g 98 % 98 % 88 /min 98.3 [degF] 118 mm[Hg] 86 mm[Hg] Mirna [facility]. 17:38:19 Social History Question Answer Notes LastModified by Organization Details LastModified Time Tobacco Smoking Status Former Smoker SocialIl Charity carine: 'Tobacco /Alcohol /Supplem ents'; Alberto Rodriguez rubia: 'Former Smoker'; Not Available [facility] 04/03/2022 23:01:48 Do You Have An Advance [...] Information not available 08/31/2024 What Type Of Bung Sewer Do You Use? [employer] Information not available 08/31/2024 Have You Been To An Area Known To Be High Risk For COVID-19? No Information not available 08/31/2024 Are You Deaf Or Do You Have Serious Difficulty Hearing? No Information not available 08/31/2024 What Type Of Diet Are You Following? REGULAR Information not available 08/31/2024 Who Is Your Employer? 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 No Information not available 08/31/2024 What Was [...] anxious, or unable to sleep at night)? [id number] Information not available 08/31/2024 Do you have [...] ent. N Hypothyroidism N Lung Disease N COPD N Dermatologic Disorders N Depression Y Defects or Inherited Disease N Developmental or [...] Psychiatric/Mental Health Condition N Organ Transplant N Headaches N Schizophrenia N Fibromyalgia N [...] unspecified formulation 8 completed Mirna Vice null, [place] - [facility] 08/31/2024 16:36:36 IPV 8 completed Mirna Vice null, [facility] [facility] [employer] 08/31/2024 16:36:36 IPV 9 completed Mirna Vice null, [facility] - [facility] [employer] [employer] 08/31/2024 16:36:36 IPV 1 completed Mirna Vice null, [employer] 08/31/2024 16:36:36 IPV 7 completed Mirna Vice null, [facility] - [employer] 08/31/2024 16:36:36 MMR 9 completed Mirna Vice null, [employer] 08/31/2024 16:36:36 MMR 9 completed Mirna Vice null, [employer] 08/31/2024 16:36:36 MMR 1 completed Mirna Vice null, [employer] 08/31/2024 16:36:36 COVID-19, mRNA, LNP-S, PF, 100 mcg/0.5mL dose or 50 mcg/0.25mL dose 2 completed Mirna Vice null, [employer] 08/31/2024 16:36:36 COVID-19, mRNA, LNP-S, PF, 100 mcg/0.5mL dose or 50 mcg/0.25mL dose 2 completed Mirna Vice null, [employer] 08/31/2024 16:36:36 Tdap 9 completed Mirna Vice null, [employer] [facility] [employer] 08/31/2024 16:36:36 Tdap 9 completed Mirna Vice null, [employer] 08/31/2024 16:36:36 Tdap 1 completed Mirna Vice null, [employer] 08/31/2024 16:36:36 varicella 2 completed Mirna Vice null, [employer] 08/31/2024 16:36:36 varicella 8 completed Mirna Vice null, [employer] 08/31/2024 16:36:36 DTP 9 completed Mirna Vice null, [employer] 08/31/2024 16:36:36 DTP 1 completed Mirna Vice null, [employer] 08/31/2024 16:36:36 Hep B, unspecified formulation 8 completed Mirna Vice null, [employer] 08/31/2024 16:36:36 Hep B, unspecified formulation 7 completed Mirna Vice null, [employer] 08/31/2024 16:36:36 OPV 8 completed Mirna Vice null, [employer] 08/31/2024 16:36:36 DTP-Hib 8 completed Mirna Vice null, [employer] 08/31/2024 16:36:36 DTP-Hib 8 completed Mirna Vice null, [employer] 08/31/2024 16:36:36 DTP-Hib 7 completed Mirna Vice null, [employer] 08/31/2024 16:36:36 Influenza, split virus, trivalent, preservative 9 completed Mirna Vice null, [employer] 08/31/2024 16:36:36 Influenza, split virus, trivalent, preservative 7 completed Mirna Vice null, [employer] 08/31/2024 16:36:36 HPV, quadrivalent 9 completed Mirna Vice null, [employer] 08/31/2024 16:36:36 Hep B, adolescent or pediatric 7 completed Mirna Vice null, [employer] 08/31/2024 16:36:36 Hep A, adult 8 completed Mirna Vice null, [employer] 08/31/2024 16:36:36 meningococcal MCV4P 9 completed Mirna Vice null, [employer] 08/31/2024 16:36:36 DTaP, unspecified formulation 9 completed Mirna Vice null, [employer] 08/31/2024 16:36:36 Influenza, split virus, quadrivalent, PF 6 completed Mirna Vice null, [employer] 08/31/2024 16:36:36 Influenza, split virus, quadrivalent, PF 9 completed Mirna Vice null, [employer] 08/31/2024 16:36:36 Past Encounters Encounter ID Performer Location Encounter Start Date Encounter Closed Date Diagnosis/Indication Diagnosis SNOMED-CT Code Diagnosis ICD10 Code Diagnosis Note [id number] RAI Alegria [address] [address] 08/31/2024 16:28:57 08/31/2024 17:16:43 Low back pain 303631113 M54.50 Generalize d anxiety disorder 57974798 F41.1 HIV screening 648607062 Z11.4 Hepatitis C screening 41 1797179 Z11.59 Hyperlipidemia 71993833 E78.5 Vitamin D deficiency 347 21622 E55.9 Adult [facility] th examination 172443605 Z00.00 Vertigo 345723684 R42 Body mass index 30+ - obesity 230476800 Z68.30 [id number] RAI Alegria [address] [address] 11/30/2024 08:44:22 11/30/2024 09:16:08 Acute urinary tract infection 492312955 N39.0 Increase hydration, culture pending. RTC if not improving. [id number] RAI Alegria [address] [address] 12/17/2024 17:24:58 12/22/2024 13:17:24 Dysuria 30226240 R30.0 Leukocytes in urine 2757 79865 R82.998 Health Concerns Section Related Observation LastModified by Organization Detai ls LastModified Time None Recorded Concern Status LastModified by Organization Details LastModified Time None Recorded Advance Directives Directive N: Payers Insurance Date Sequence Insurance Name Policy Number Policy Bella Covered Member ID Bella Member ID Guarantor Name 11/30/2024 1 [employer] Shanda Chandlernton [id number] Shanda Fiona 11/30/2024 SLIDING FEE SCHEDULE - DISCOUNT Shanda Fiona 11/30/2024 1 *SELF PAY* Viola Chandlernton 08/31/2024 1 [place] [id number] Shandajulius Jaimes [id number] Shanda Jaimes 08/28/2024 2 [place] [id number] 55 Shandajulius Felicianoon [id number] Shanda Jaimes Notes Date Note Type Note Provider Name and Address Organization Details Recorded Time 5 text/html History of Vitamin D deficiencyHistory of hyperlipidemiaPatient has had some dizziness, nausea. History of inner ear infections.Patient has low back pain. Started after having daughter in 2020. Lower back feels like it is splitting apart. Started during . Cannot sit in the floor, because she can't hardly straighten out. Doesn't take meds and tries to power thru. Has seen chiropractor. It did help a little. Pain does not radiate down her legs. Warm bath, heating pad do help.History of anxiety. Doing well on meds and wonders if we can just do refills to make it easier. RAI Alegria [address] [place], [address], [email or web address] 09/01/2024 11:38:21 5 text/html Dysuria, frequency, feelings of incomplete emptying of bladder X 1 week. Some nausea. No fever.Has been at the hospital with her mother who has been very ill. RAI Alegria [address] [place], [address], [email or web address] 11/30/2024 09:20:36 5 text/html Patient was seen a few weeks ago for potential UTI at [facility] and then [facility]. Has been given antibiotics, diflucan. She is still having urgency, frequency and burning when she urinates. Feels as if she does not empty bladder completely and that is making it hard to sleep. She denies itching, odor or discharge. RAI Alegria [address] [place] [address], [phone], [facility] [employer] 12/22/2024 11:09:21 OBGyn Episode No OBEpisode recorded.
== END 2025-01-08 23:59 | disposition home or self-care (01) ==
LOC: RAD 15:40
PROVIDERS: Visit Provider Urology
DX: N39.0 Urinary tract infection, site not specified (principal); N32.81 Overactive bladder
CPT/HCPCS: 74018; 76770

== ENCOUNTER 2025-01-15 10:31 | Day surgery (SDC) | payer OTHER, SELFPAY ==
[2025-01-13 10:03] VITALS: BMI 30.2
[2025-01-15 10:40] VITALS: BP 114/63; PULSE 75; RESP 18; TEMP 36.6; O2SAT 100
--- NOTE | 2025-01-15 11:05 | P.PCN_ITS ---
[facility] Procedure Note Date: 01/15/25 Time: 11:05 Procedure Note:: Chart review: The patient has trouble with overactive bladder, stress urinary incontinence, and what she feels is recurrent urinary tract infections. In the past when she has been told there is a urinary tract infections antibiotics do not seem to help. She says she is prone to yeast vaginitis. The patient has been on Ditropan and Macrobid. She associates her UTI symptoms to sexual intercourse. Starting today she will use 1 Macrobid each day of sexual intercourse. On the oxybutynin the patient says she has some better with her frequency and feeling that she does not empty her bladder and needing to void again. She is trying to give up caffeine. Her insurance denied Intrarosa and Urogesic-Blue. Pre-Op diagnosis: UTI/JASON/OAB Postop diagnosis: UTI/issue/OAB/Siginficant Urethritis Operative note: The patient was brought to the cystoscopy suite. She is prepped and draped in the sterile usual fashion. Patient underwent flexible cystoscopy. She has significant urethral-itis. Her urethra is tender to catheterization. The bladder itself is [place] pink in color throughout without evidence of bladder stone tumor hemorrhage or infection. The ureteral orifice ease are normal bilaterally with clear E flux of urine. The patient will get on Intrarosa voucher as I believe that we will give some help to the urethritis.
[2025-01-15] MEDS: 0.9 % SODIUM CHLORIDE 500 ML 25 ML IV (11:16)
[2025-01-15] MEDS: LIDOCAINE 2% UROJET 10ML 10 ML (11:16)
[2025-01-15 11:24] VITALS: BP 116/70; PULSE 80; RESP 17; TEMP 36.1; O2SAT 97
== END 2025-01-15 11:29 | disposition home or self-care (01) ==
PROVIDERS: PCP Physician Assistant; Visit Provider Urology
PROC: 0TJB8ZZ Inspection of Bladder, Via Natural or Artificial Opening Endoscopic (ICD-10-PCS; CPT 52000; principal; 2025-01-15 11:30)
DX: N32.81 Overactive bladder (principal); N39.46 Mixed incontinence; Z87.440 Personal history of urinary (tract) infections; N34.2 Other urethritis; R35.1 Nocturia; Z79.899 Other long term (current) drug therapy; F17.290 Nicotine dependence, other tobacco product, uncomplicated
CPT/HCPCS: 52000; J7040

== ENCOUNTER 2025-02-13 09:00 | Outpatient (CLI) | payer OTHER, SELFPAY ==
--- OUTSIDE RECORDS SUMMARY | 2025-02-15 10:00 | XMS_ITS | Encounter Summary ---
[facility] Address [address] [place] [address] Care Team Providers Care [employer] Member Name Role Phone Blair Smalls MD Primary Care Provider [phone] Reason for Visit * Reason Comments Med Refill Encounter Details Date Type Department Care Team (Late st Contact Info) Description 10/15/[address] 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 Monthly or less 09/30/2020 Q2: How many drinks containi ng alcohol do you have on a typical day when you are drinking? 1 or 2 09/30/2020 Q3: How often do you have si x or more drinks on one occasion? Never 09/30/2020 Comments Yes Sex and Gender Information Value Date Recorded Sex Assigned at Not on file Legal Sex Female 12:40 PM EST Gender Identity Not on file Sexual Orientation Not on file documented as of this encounter Plan of Treatment Not on file documented as of this encounter Visit Diagnoses Diagnosis First trimester state, incidental documented in this encounter Additional Health Concerns Infection Onset Date Last Indicated Resolved Time COVID Screen (preop/placement) 01/03/2020 05/10/2021 05/10/2021 9:02 PM EDT documented as of this encounter Care Teams Fast Food Crew Member Relationship Specialty Start Date End Date Blair Smalls MD PCP - General Emergency Medicine 09/29/20 documented as of this encounter
--- OUTSIDE RECORDS SUMMARY | 2025-02-15 10:00 | XMS_ITS | Data Portability ---
Author Organization [facility] [place] - [facility] Address [address] [place] [address] Assessment No assessment recorded. Plan of Treatment Reminders Order Date Submit Date Provider Last Modified By Organization Details Last Modified Time Details Appointments None recorded. Lab urinalysis, dipstick [address], [address] [place], [address], 5 17:56:47 vaginal pathogens panel, JUANJOSE+probe, vaginal fluid 2024 025 [facility] [address] [place], [address], 5 07:09:00 culture, urine 2024 025 [facility] ([place] [address] [place], [address], 5 07:09:00 urinalysis, dipstick [address], [address] [place], [address], 5 09:16:03 culture, urine 2024 025 [facility] [address] [place], [address], 5 07:12:41 lipid panel, serum 2024 025 [facility]), [address] [place], [address], 5 07:09:26 CMP, serum or plasma 2024 025 [facility]), [address] [place], [address], 5 07:09:26 CBC w/ auto diff 2024 025 [facility] [place], [address], 5 07:09:25 TSH, ultra-sensi tive, serum 2024 025 [facility]), [address] [place], [address], 5 07:09:27 vitamin D, 25-hydroxy, total, serum 2024 025 [facility]), [address] [place], [address], 5 07:09:27 Hepatitis C IgG Ab, qual, serum 2024 025 [facility]), [address] [place], [address], 5 07:09:27 HIV 1 + 2, meaningful use set 2024 025 [facility] [address] [place] [address], [address], 5 07:09:28 Referral None recorded. Procedures None recorded. Surgeries None recorded. Imaging None recorded. Medication Orders levofloxaci n 500 mg tablet 2024 025 [facility], [address] [place], [address], 17:44:24 Medrol (Lenny) 4 mg tablets in a dose pack 2024 025 [facility] [address], [address] [place] [address], [address], 09:16:12 meclizine 25 mg tablet 2024 025 [facility] [address], [address] [place] [address], [address], 09:16:10 Patient TargetsNo targets recorded. Patient Instructions Encounter Date Encounter Id Patient Instructions Last Modified By Organization Details Last Modified Time 08/31/2024 [id number] back care and preventing injuries: care instructions [email or web address] Not available 08/31/2024 17:18:01 getting back to normal after low back pain: care instructions Not available 08/31/2024 17:18:01 learning about relief for back pain [email or web address] Not available 08/31/2024 17:18:01 body mass index: care instructions [email or web address] Not available 09/01/2024 11:37:34 learning about healthy weight Not available 09/01/2024 11:37:34 12/17/2024 [id number] painful urinatio n (dysuria): care instructions [email or web address] Not available 12/17/2024 17:56:47 Reason for Referral None Reported. Results Created Date Observation Date Name Description Value Unit Range Abnormal Flag Note LastModifiedBy Organization Detail LastModifiedTime 09/01/1909/02/2024 CBC WITH DIFFE RENTI AL/PL ATELE T WBC 6.1 x10e3 /uL 3.4-10 .8 normal Not Available [facility] ([facility]) [address] [facility], [place], [address], 09/03/2024 07:09:25 09/01/19 25 09/02/2024 CBC WITH DIFFE RENTI AL/PL ATELE T RBC 4.59 x10e6 /uL 3.77-5 .28 normal Not Available [facility] ([facility]) [address] [facility], [place], [address], 09/03/2024 07:09:25 09/01/1909/02/2024 CBC WITH DIFFE RENTI AL/PL ATELE T hemoglobin 13.7 g/dL 11.1-1 5.9 normal Not Available [facility] ([facility]) [address] [place], [address], 09/03/2024 07:09:25 09/01/1909/02/2024 CBC WITH DIFFE RENTI AL/PL ATELE T hematocrit 42.4 % 34.0-4 6.6 normal Not Available [facility] ([facility]) [address] [facility], [place], [address], 09/03/2024 07:09:25 09/01/1909/02/2024 CBC WITH DIFFE RENTI AL/PL ATELE T MCV 92 fL 79-97 normal Not Available [facility] ([facility]) [address] [place], [address], 09/03/2024 07:09:25 09/01/1909/02/2024 CBC WITH DIFFE RENTI AL/PL ATELE T MCH 29.8 pg 26.6-3 3.0 normal Not Available [facility] ([facility]) [address] [place], [address], 09/03/2024 07:09:25 09/01/1909/02/2024 CBC WITH DIFFE RENTI AL/PL ATELE T MCHC 32.3 g/dL 31.5-3 5.7 normal Not Available [facility] ([facility]) [address] [place], [address], 09/03/2024 07:09:25 09/01/19 25 09/02/2024 CBC WITH DIFFE RENTI AL/PL ATELE T RDW 12.5 % 11.7-1 5.4 Not Available [facility] ([facility]) [address] [facility], [place], [address], 09/03/2024 07:09:25 09/01/1909/02/2024 CBC WITH DIFFE RENTI AL/PL ATELE T platelets 350 x10e3 /uL 150-45 0 normal Not Available [facility] ([facility]) [address] [facility], [place], [address], 09/03/2024 07:09:25 09/01/1909/02/2024 CBC WITH DIFFE RENTI AL/PL ATELE T neutrophils 59 % not estab. normal Not Available [facility] ([facility]) [address] [facility], [place], [address], 09/03/2024 07:09:25 09/01/19 25 09/02/2024 CBC WITH DIFFE RENTI AL/PL ATELE T lymphs 31 % not estab. normal Not Available [facility] ([facility]) [address] [facility], [place], [address], 09/03/2024 07:09:25 09/01/19 25 09/02/2024 CBC WITH DIFFE RENTI AL/PL ATELE T monocytes 8 % not estab. normal Not Available [facility] ([facility]) [address] [facility], [place], [address], 09/03/2024 07:09:25 09/01/1909/02/2024 CBC WITH DIFFE RENTI AL/PL ATELE T eos 1 % not estab. normal Not Available [facility] ([facility]) [address] [facility], [place], [address], 09/03/2024 07:09:25 09/01/19 25 09/02/2024 CBC WITH DIFFE RENTI AL/PL ATELE T basos 1 % not estab. normal Not Available [facility] ([facility]) [address] [facility], [place], [address], 09/03/2024 07:09:25 09/01/19 25 09/02/2024 CBC WITH DIFFE RENTI AL/PL ATELE T immature cells COPY READER Not Available [facility] ([facility]) [address] [place], [address], 09/03/2024 07:09:25 09/01/19 25 09/02/2024 CBC WITH DIFFE RENTI AL/PL ATELE T neutrophils (absolute) 3.6 x10e3 /uL 1.4-7. 0 normal Not Available [facility] ([facility]) [address] [place], [address], 09/03/2024 07:09:25 09/01/19 25 09/02/2024 CBC WITH DIFFE RENTI AL/PL ATELE T lymphs (absolute) 1.9 x10e3 /uL 0.7-3. 1 normal Not Available [facility] ([facility]) [address] [place], [address], 09/03/2024 07:09:25 09/01/19 25 09/02/2024 CBC WITH DIFFE RENTI AL/PL ATELE T monocytes(ab solute) 0.5 x10e3 /uL 0.1-0. 9 normal Not Available [facility] ([facility]) [address] [place], [address], 09/03/2024 07:09:25 09/01/1909/02/2024 CBC WITH DIFFE RENTI AL/PL ATELE T eos (absolute) 0.1 x10e3 /uL 0.0-0. 4 normal Not Available [facility] ([facility]) [address] [place], [address], 09/03/2024 07:09:25 09/01/19 25 09/02/2024 CBC WITH DIFFE RENTI AL/PL ATELE T baso (absolute) 0.1 x10e3 /uL 0.0-0. 2 normal Not Available [facility] ([facility]) [address] [facility] [place], [address], 09/03/2024 07:09:25 09/01/1909/02/2024 CBC WITH DIFFE RENTI AL/PL ATELE T immature granulocytes 0 % not estab. Not Available [facility] ([facility]) [address] [facility], [place], [address], 09/03/2024 07:09:25 09/01/19 25 09/02/2024 CBC WITH DIFFE RENTI AL/PL ATELE T immature grans (abs) 0.0 x10e3 /uL 0.0-0. 1 Not Available [facility] ([facility]) [address] [facility], [place], [address], 09/03/2024 07:09:25 09/01/19 25 09/02/2024 CBC WITH DIFFE RENTI AL/PL ATELE T NRBC COPY READER Not Available [facility] ([facility]) [address] [facility], [place], [address], 09/03/2024 07:09:25 09/01/19 25 09/02/2024 CBC WITH DIFFE RENTI AL/PL ATELE T hematology comments: COPY READER Not Available [facility] ([facility]) [address] [facility], [place], [address], 09/03/2024 07:09:25 09/01/1909/02/2024 COMP. METAB OLIC PANEL (14) glucose 69 mg/dL 70-99 below low normal Not Available [facility] ([facility]) [address] [facility], [place], [address], 09/03/2024 07:09:26 09/01/19 25 09/02/2024 COMP. METAB OLIC PANEL (14) BUN 9 mg/dL 6-20 normal Not Available [facility] ([facility]) [address] [place], [address], 09/03/2024 07:09:26 09/01/19 25 09/02/2024 COMP. METAB OLIC PANEL (14) creatinine 0.82 mg/dL 0.57-1 .00 normal Not Available [facility] ([facility]) [address] [place], [address], 09/03/2024 07:09:26 09/01/19 25 09/02/2024 COMP. METAB OLIC PANEL (14) eGFR 100 mL/mi n/1.7 3 >59 normal Not Available [facility] ([facility]) [address] [facility], [place], [address], 09/03/2024 07:09:26 09/01/19 25 09/02/2024 COMP. METAB OLIC PANEL (14) BUN/creatini ne ratio 11 9-23 normal Not Available [facility] ([facility]) [address] [facility], [place], [address], 09/03/2024 07:09:26 09/01/19 25 09/02/2024 COMP. METAB OLIC PANEL (14) sodium 137 mmol/ L 134-14 4 normal Not Available [facility] ([facility]) [address] [place], [address], 09/03/2024 07:09:26 09/01/19 25 09/02/2024 COMP. METAB OLIC PANEL (14) potassium 4.2 mmol/ L 3.5-5. 2 normal Not Available [facility] ([facility]) [address] [place], [address], 09/03/2024 07:09:26 09/01/19 25 09/02/2024 COMP. METAB OLIC PANEL (14) chloride 101 mmol/ L 96-106 normal Not Available [facility] ([facility]) [address] [facility], [place], [address], 09/03/2024 07:09:26 09/01/19 25 09/02/2024 COMP. METAB OLIC PANEL (14) carbon dioxide, total 21 mmol/ L 20-29 normal Not Available [facility] ([facility]) [address] [place], [address], 09/03/2024 07:09:26 09/01/19 25 09/02/2024 COMP. METAB OLIC PANEL (14) calcium 9.8 mg/dL 8.7-10 .2 normal Not Available [facility] ([facility]) [address] [place], [address], 09/03/2024 07:09:26 09/01/19 25 09/02/2024 COMP. METAB OLIC PANEL (14) protein, total 7.6 g/dL 6.0-8. 5 normal Not Available [facility] ([facility]) [address] [place], [address], 09/03/2024 07:09:26 09/01/19 25 09/02/2024 COMP. METAB OLIC PANEL (14) albumin 4.8 g/dL 4.0-5. 0 normal Not Available [facility] ([facility]) [address] [place], [address], 09/03/2024 07:09:26 09/01/19 25 09/02/2024 COMP. METAB OLIC PANEL (14) globulin, total 2.8 g/dL 1.5-4. 5 Not Available [facility] ([facility]) [address] [place], [address], 09/03/2024 07:09:26 09/01/19 25 09/02/2024 COMP. METAB OLIC PANEL (14) bilirubin, total 0.3 mg/dL 0.0-1. 2 normal Not Available [facility] ([facility]) [address] [place], [address], 09/03/2024 07:09:26 09/01/19 25 09/02/2024 COMP. METAB OLIC PANEL (14) alkaline phosphatase 85 IU/L 44-121 normal Not Available [facility] ([facility]) [address] [place], [address], 09/03/2024 07:09:26 09/01/19 25 09/02/2024 COMP. METAB OLIC PANEL (14) AST (SGOT) 18 IU/L 0-40 normal Not Available [facility] ([facility]) [address] [place], [address], 09/03/2024 07:09:26 09/01/19 25 09/02/2024 COMP. METAB OLIC PANEL (14) ALT (SGPT) 16 IU/L 0-32 normal Not Available [facility] ([facility]) [address] [place], [address], 09/03/2024 07:09:26 09/01/19 25 09/02/2024 LIPID PANEL cholesterol, total 196 mg/dL 100-19 9 normal Not Available [facility] ([facility]) [address] [place], [address], 09/03/2024 07:09:26 09/01/19 25 09/02/2024 LIPID PANEL triglyceride s 113 mg/dL 0-149 normal Not Available [facility] ([facility]) [address] [place], [address], 09/03/2024 07:09:26 09/01/19 25 09/02/2024 LIPID PANEL HDL cholesterol 48 mg/dL >39 normal Not Available [facility] ([facility]) [address] [place], [address], 09/03/2024 07:09:26 09/01/19 25 09/02/2024 LIPID PANEL VLDL cholesterol ofelia 20 mg/dL 5-40 Not Available [facility] ([facility]) [address] [place], [address], 09/03/2024 07:09:26 09/01/19 25 09/02/2024 LIPID PANEL LDL chol calc ([facility]) 128 mg/dL 0-99 above high normal Not Available [facility] ([facility]) [address] [place], [address], 09/03/2024 07:09:26 09/01/19 25 09/02/2024 LIPID PANEL LDL calc comment: COPY READER Not Available [facility] ([facility]) [address] [facility], [place], [address], 09/03/2024 07:09:26 09/01/19 25 09/02/2024 HCV ANTIB DORIE CASCA DE(PC R/GEN O) HCV Ab Non Reacti ve non reacti ve Not Available [facility] ([facility]) [address] [facility], [place], [address], 09/03/2024 07:09:27 09/01/1909/02/2024 HCV ANTIB DORIE CASCA DE(PC R/GEN O) interpretati on: Commen t Not infec pk with HCV unles s early or acute infec tion is suspe cted (whic h may be delay ed in an immun ocomp romis ed indiv idual ), or other evide nce exist s to indic ate HCV infec tion. Not Available [facility] ([facility]) [address] [facility], [place], [address], 09/03/2024 07:09:27 09/01/1909/02/2024 TSH TSH 1.110 uIU/m L 0.450- 4.500 normal Not Available [facility] ([facility]) [address] [facility], [place], [address], 09/03/2024 07:09:27 09/01/1909/03/2024 VITAM IN D, 25-HY [...] um and D. Yahir mace [place]: The [facility]io nal [facility] Press . 2. Mary Kate k MF, Bink[place] ey [place], Bisch off-F errar i YOON, et al. Evalu ation , treat ment, and preve ntion of vitam in D defic iency : an Endoc rine Socie ty clini ofelia pract ice guide line. JCEM. 2010; 96(7) :1911 -30. Not Available [facility] ([facility]) [address] [facility], [place], [address], 09/03/2024 07:09:27 09/01/1909/02/2024 HIV AB/P2 4 AG WITH REFLE X HIV Ab/P24 Ag screen Non Reacti ve non reacti ve HIV Negat marjorie HIV-1 /HIV- 2 antib odies and HIV-1 p24 antig en were NOT detec pk. There is no labor atory evide nce of HIV infec tion. Not Available [facility] ([facility]) [address] [facility], [place], [address], 09/03/2024 07:09:27 12/01/1912/02/2024 URINE CULTU RE, ROUTI NE urine culture, routine Final report Not Available [facility] ([facility]) [address] [facility], [place], [address], 12/02/2024 07:12:41 12/01/19 25 12/02/2024 URINE CULTU RE, ROUTI NE result 1 COMMEN T Mixed uroge nital kike 10,00 0-25, 000 colon y formi ng units per mL Not Available [facility] ([facility]) [address], [place], [address], 12/02/2024 07:12:41 12/01/19 25 11/30/2024 urina lysis , dipst ick Leukocytes Large Not Available [address], [place], [address], 11/30/2024 09:02:07 12/01/19 25 11/30/2024 urina lysis , dipst ick Nitrite negati ve Not Available [address], [address], 11/30/2024 09:02:07 12/01/19 25 11/30/2024 urina lysis , dipst ick Urobilinogen 1 Not Available [address], [place], [address], 11/30/2024 09:02:07 12/01/19 25 11/30/2024 urina lysis , dipst ick Protein Negati ve Not Available [address], [place], [address], 11/30/2024 09:02:07 12/01/19 25 11/30/2024 urina lysis , dipst ick pH 7.0 Not Available [address], [address], 11/30/2024 09:02:07 12/01/19 25 11/30/2024 urina lysis , dipst ick Blood Negati ve Not Available [address], [address], 11/30/2024 09:02:07 12/01/19 25 11/30/2024 urina lysis , dipst ick Specific [place] 1.025 Not Available [address], [place], [address], 11/30/2024 09:02:07 12/01/19 25 11/30/2024 urina lysis , dipst ick Ketone Negati ve Not Available [address], [address], 11/30/2024 09:02:07 12/01/19 25 11/30/2024 urina lysis , dipst ick Bilirubin Negati ve Not Available [address], [address], 11/30/2024 09:02:07 12/01/19 25 11/30/2024 urina lysis , dipst ick Glucose Negati ve Not Available [address], [address], 11/30/2024 09:02:07 12/01/1911/30/2024 urina lysis , dipst ick Appearance Slight ly Cloudy Not Available [address], [address], 11/30/2024 09:02:07 12/01/1911/30/2024 urina lysis , dipst ick Color Dark Yellow Not Available [address], [address], 11/30/2024 09:02:07 12/18/1912/20/2024 NUSWA B VAGIN ITIS PLUS (VG+) atopobium vaginae Low - 0 score Not Available [facility] ([facility]) [address] [facility], [place], [address], 12/22/2024 07:09:00 12/18/1912/20/2024 NUA B VAGIN ITIS PLUS (VG+) bvab 2 Low - 0 score Not Available [facility] ([facility]) [address] [place], [address], 12/22/2024 07:09:00 12/18/1912/20/2024 NUA B VAGIN ITIS PLUS (VG+) megasphaera 1 Low - 0 score Calcu late total score by makenna g the 3 indiv idual bacte rial vagin [...] prese nce of BV. Not Available [facility] ([facility]) [address] [facility], [place], [address], 12/22/2024 07:09:00 12/18/1912/20/2024 NUA B VAGIN ITIS PLUS (VG+) tre albicans, JUANJOSE Negati ve negati ve Not Available [facility] ([facility]) [address] [place], [address], 12/22/2024 07:09:00 12/18/1912/20/2024 NUA B VAGIN ITIS PLUS (VG+) tre glabrata, JUANJOSE Negati ve negati ve Not Available [facility] ([facility]) [address] [place], [address], 12/22/2024 07:09:00 12/18/1912/22/2024 NUA B VAGIN ITIS PLUS (VG+) trich vag by JUANJOSE Negati ve negati ve Not Available [facility] ([facility]) [address] [place], [address], 12/22/2024 07:09:00 12/18/19 25 12/22/2024 NUSWA B VAGIN ITIS PLUS (VG+) chlamydia trachomatis, JUANJOSE Negati ve negati ve Not Available [facility] ([facility]) [address] [facility], [place], [address], 12/22/2024 07:09:00 12/18/19 25 12/22/2024 NUSWA B VAGIN ITIS PLUS (VG+) neisseria gonorrhoeae, JUANJOSE Negati ve negati ve Not Available [facility] ([facility]) [address] [facility], [place], [address], 12/22/2024 07:09:00 12/18/19 25 12/20/2024 URINE CULTU RE, ROUTI NE urine culture, routine Final report Not Available [facility] ([facility]) [address] [facility], [place], [address], 12/22/2024 07:09:00 12/18/19 25 12/20/2024 URINE CULTU RE, ROUTI NE result 1 No growth Not Available [facility] ([facility]) [address] [facility], [place], [address], 12/22/2024 07:09:00 12/18/19 25 12/17/2024 urina lysis , dipst ick Leukocytes Trace Not Available [address], [address], 12/17/2024 17:49:25 12/18/19 25 12/17/2024 urina lysis , dipst ick Nitrite negati ve Not Available [address], [address], 12/17/2024 17:49:25 12/18/19 25 12/17/2024 urina lysis , dipst ick Urobilinogen 1 Not Available [address], [place], [address], 12/17/2024 17:49:25 12/18/19 25 12/17/2024 urina lysis , dipst ick Protein Negati ve Not Available [address], [place], [address], 12/17/2024 17:49:25 12/18/19 25 12/17/2024 urina lysis , dipst ick pH 7.0 Not Available [address], [place], [address], 12/17/2024 17:49:25 12/18/19 25 12/17/2024 urina lysis , dipst ick Blood Negati ve Not Available [address], [place], [address], 12/17/2024 17:49:25 12/18/19 25 12/17/2024 urina lysis , dipst ick Specific [place] 1.015 Not Available [address], [place], [address], 12/17/2024 17:49:25 12/18/19 25 12/17/2024 urina lysis , dipst ick Ketone Negati ve Not Available [address], [place], [address], 12/17/2024 17:49:25 12/18/19 25 12/17/2024 urina lysis , dipst ick Bilirubin Negati ve Not Available [address], [place], [address], 12/17/2024 17:49:25 12/18/19 25 12/17/2024 urina lysis , dipst ick Glucose Negati ve Not Available [facility] [address] [place] [address], [place], [address], 12/17/2024 17:49:25 12/18/1912/17/2024 urina lysis , dipst ick Appearance Clear Not Available [facility] [address] [place] [address], [address], 12/17/2024 17:49:25 12/18/1912/17/2024 urina lysis , dipst ick Color Yellow Not Available [facility] [address] [place] [address], [address], 12/17/2024 17:49:25 Result Notes None recorded. Problems Name Problem SNOMED Code Status Onset Date Resolution Date Notes Provider Name and Address Organization Details Recorded Time Contracepti on care management Active 2019 Problem Code: Z30.9; Problem Code Type: ICD-10; Not Available [facility] 2 22:00:08 Surveillanc e of subcutaneou s contracepti ve implant Active 2019 Not Available [facility] 2 22:00:08 Low back pain 498767583 Active 2024 RAI Alegria [address] [place] [address], [address] , [employer] 5 16:57:55 Generalized anxiety disorder 72753965 Active 2024 RAI Alegria [address] [place] [address], [address] , [employer] 5 08:42:42 Vertigo 922781167 Active 2024 RAI Alegria [address] [place] [address], [address] , [employer] 5 17:17:48 Acute urinary tract infection 251393712 Active 2024 RAI Alegria [address] [place] [address], [address] , [employer] 5 09:15:40 Nausea and vomiting 60140604 Active 2024 RAI Alegria [address] [place] [address], [address] , [employer] 5 15:37:35 Dysuria 96813598 Active 2024 RAI Alegria [address] [place] [address], [address] [place] [address] , [employer] 5 09:19:50 Overactive urinary bladder 643390159 Active 2024 RAI Alegria [address] [place] [address], [address] [place] [address] , [employer] 5 09:34:59 Problem Notes None recorded. Procedures Surgical History Date Name Laterality Status Provider Name and Address Organization Details Recorded Time 08/21/19 24 Date of Last Pap Smear completed [facility] [facility] 08/31/2024 16:36:25 Caesarean Section completed [employer] 08/31/2024 16:36:26 Hernia Repair completed [facility] [facility] 08/31/2024 16:36:26 Tonsillectomy completed [facility] [facility] 08/31/2024 16:36:26 Imaging Results None recorded. [...] blood by Pulse oximetry Body temperature Systolic And Diastolic Provider Name and Address Organization Details Last Updated DateTime 5 53868.8 8 g 30.8 kg/m2 152.4 cm 86 /min 96 % 96 % 98.3 [degF] 108/72 mm[Hg] Mirna [facility] [employer] 5 16:42:01 Date Recorded Body height Body mass index (BMI) Body weight Heart rate Oxygen saturation Oxygen saturation in Arterial blood by Pulse oximetry Body temperature Systolic And Diastolic Provider Name and Address Organization Details Last Updated DateTime 5 152.4 cm 30.9 kg/m2 83857.5 9 g 80 /min 98 % 98 % 98.6 [degF] 118/82 mm[Hg] Sandrine Munguia [employer] 5 09:00:55 Date Recorded Body height Body mass index (BMI) Body weight Oxygen saturation Oxygen saturation in Arterial blood by Pulse oximetry Heart rate Body temperature Systolic And Diastolic Provider Name and Address Organization Details Last Updated DateTime 5 152.4 cm 30.8 kg/m2 94216.8 8 g 98 % 98 % 88 /min 98.3 [degF] 118/86 mm[Hg] [facility] [employer] 5 17:38:19 Social History Question Answer Notes LastModified by Organization Details LastModified Time Tobacco Smoking Status Former Smoker Alberto Nash carine: 'Tobacco /Alcohol /Supplem ents'; Alberto holbrookmarisa: 'Former Smoker'; Not Available [facility] 04/03/2022 23:01:48 Do You Have An [...] Information not available 08/31/2024 What Type Of Rn Residential Do You Use? [facility] Information not available 08/31/2024 Have You Been To An Area Known To Be High Risk For COVID-19? No Information not available 08/31/2024 Are You Deaf Or Do You Have Serious Difficulty Hearing? No Information not available 08/31/2024 What Type Of Diet Are You Following? REGULAR Information not available 08/31/2024 Who Is Your Employer? [employer] Information not available 08/31/2024 How Many Days [...] Do You Have A Medical Power Of Pension Adviser? No Information not available 08/31/2024 What Was [...] anxious, or unable to sleep at night)? [id number] Information not available 08/31/2024 Do you have [...] COPD N Depression Y Dermatologic Disorders N Lung Disease N Hypothyroidism N Developmental or Behavioral Disorders N Defects [...] Vaccine Y Duration of Flow (days) 7 Most Recent Mammogram Current Control Method None Age at Menarche 13 Age at First Child 25 Sexually Active? [...] Hib, unspecified formulation 8 completed [facility]na [facility] 08/31/2024 16:36:36 IPV 8 completed Mirna Vice null, [employer] 08/31/2024 16:36:36 IPV 9 completed Mirna Vice null, [employer] [facility] [employer] 08/31/2024 16:36:36 IPV 1 completed Mirna Vice null, [employer] 08/31/2024 16:36:36 IPV 7 completed Mirna Vice null, [employer] 08/31/2024 16:36:36 MMR 9 completed Mirna Vice null, [employer] 08/31/2024 16:36:36 MMR 9 completed Mirna Vice null, [employer] 08/31/2024 16:36:36 MMR 1 completed Mirna Vice null, [employer] 08/31/2024 16:36:36 COVID-19, mRNA, LNP-S, PF, 100 mcg/0.5mL dose or 50 mcg/0.25mL dose 2 completed Mirna Vice null, [employer] 08/31/2024 16:36:36 COVID-19, mRNA, LNP-S, PF, 100 mcg/0.5mL dose or 50 mcg/0.25mL dose 2 completed Mirna Vice null, [employer] 08/31/2024 16:36:36 Tdap 9 completed Mirna Vice null, [employer] 08/31/2024 16:36:36 Tdap 9 completed Mirna Vice null, [employer] 08/31/2024 16:36:36 Tdap 1 completed Mirna Vice null, [employer] 08/31/2024 16:36:36 varicella 2 completed Mirna Vice null, [employer] 08/31/2024 16:36:36 varicella 8 completed Mirna Vice null, [employer] 08/31/2024 16:36:36 DTP 9 completed Mirna Vice null, [employer] 08/31/2024 16:36:36 DTP 1 completed Mirna Vice null, [employer] 08/31/2024 16:36:36 Hep B, unspecified formulation 8 completed Mirna Vice null, [employer] 08/31/2024 16:36:36 Hep B, unspecified formulation 7 completed Mirna Vice null, [employer] 08/31/2024 16:36:36 OPV 8 completed Mirna Vice null, [employer] 08/31/2024 16:36:36 DTP-Hib 8 completed Mirna Vice null, [employer] 08/31/2024 16:36:36 DTP-Hib 8 completed Mirna Vice null, [employer] 08/31/2024 16:36:36 DTP-Hib 7 completed Mirna Vice null, [employer] 08/31/2024 16:36:36 Influenza, split virus, trivalent, preservative 9 completed Mirna Vice null, [employer] 08/31/2024 16:36:36 Influenza, split virus, trivalent, preservative 7 completed Mirna Vice null, [employer] 08/31/2024 16:36:36 HPV, quadrivalent 9 completed Mirna Vice null, [employer] 08/31/2024 16:36:36 Hep B, adolescent or pediatric 7 completed Mirna Vice null, [employer] 08/31/2024 16:36:36 Hep A, adult 8 completed Mirna Vice null, [employer] 08/31/2024 16:36:36 meningococcal MCV4P 9 completed Mirna Vice null, [employer] 08/31/2024 16:36:36 DTaP, unspecified formulation 9 completed Mirna Vice null, [employer] 08/31/2024 16:36:36 Influenza, split virus, quadrivalent, PF 6 completed Mirna Vice null, [employer] 08/31/2024 16:36:36 Influenza, split virus, quadrivalent, PF 9 completed Mirna Vice null, [employer] 08/31/2024 16:36:36 Past Encounters Encounter ID Performer Location Encounter Start Date Encounter Closed Date Diagnosis/Indication Diagnosis SNOMED-CT Code Diagnosis ICD10 Code Diagnosis Note [id number] RAI Alegria [address] [address] 08/31/2024 16:28:57 08/31/2024 17:16:43 Low back pain 253385525 M54.50 Generalize d anxiety disorder 38413128 F41.1 HIV screening 459647165 Z11.4 Hepatitis C screening 41 5866123 Z11.59 Hyperlipidemia 87362947 E78.5 Vitamin D deficiency 347 19168 E55.9 Adult heal th examination 939453517 Z00.00 Vertigo 389534444 R42 Body mass index 30+ - obesity 951306830 Z68.30 [id number] RAI [facility] [address] [address] 11/30/2024 08:44:22 11/30/2024 09:16:08 Acute urinary tract infection 774498454 N39.0 Increase hydration, culture pending. RTC if not improving. [id number] RA[facility] [address] [address] 12/17/2024 17:24:58 12/22/2024 13:17:24 Dysuria 84317483 R30.0 Leukocytes in urine 2757 59694 R82.998 Health Concerns Section Related Observation LastModified by Organization Detai ls LastModified Time None Recorded Concern Status LastModified by Organization Details LastModified Time None Recorded Advance Directives Directive N: Payers Insurance Date Sequence Insurance Name Policy Number Policy Bella Covered Member ID Bella Member ID Guarantor Name 11/30/2024 1 [employer] Shanda Chandlernton [id number] Shanda Fiona 11/30/2024 SLIDING FEE SCHEDULE - DISCOUNT Shandajulius Jaimes 11/30/2024 1 *SELF PAY* Viola valentin Fiona 08/31/2024 1 [place] [id number] Shanda Delacruz Jaimes [id number] Shanda Fiona 08/28/2024 2 [place] [id number] Shanda Jaimes [id number] Shanda Fiona Notes Date Note Type Note Provider Name [...] to make it easier. [facility] [address] [place], [address], [employer] 09/01/2024 11:38:21 5 text/html Dysuria, frequency, feelings of incomplete emptying of bladder X 1 week. Some nausea. No fever.Has been at the hospital with her mother who has been very ill. [facility] [address] [place], [address], [employer] 11/30/2024 09:20:36 5 text/html Patient was [facility] a few weeks ago for potential [facility] Has been given antibiotics, diflucan. She is still having urgency, frequency and burning when she urinates. Feels as if she does not empty bladder completely and that is making it hard to sleep. She denies itching, odor or discharge. [facility] [address] [place] [address], [phone], [facility] [employer] 12/22/2024 11:09:21 OBGyn Episode No OBEpisode recorded.
--- OUTSIDE RECORDS SUMMARY | 2025-02-15 10:00 | XMS_ITS | Clinical Summary ---
Author Organization [facility] Address [address] [place] [address] Care Team Providers Care Web Communications Specialist Name Role Phone Blair Smalls MD Primary Care Provider [phone] Allergies No known active allergies Medications busPIRone (BUSPAR) 7.5 MG tablet Take 1 tablet by mouth 3 (Three) Times a Day. 12/03/2022 Active venlafaxine XR (EFFEXOR-XR) 75 MG 24 hr capsule Take 1 capsule by mouth Daily. 11/25/2022 Active hydrOXYzine (ATARAX) 10 MG tablet Take 1 tablet by mouth 3 (Three) Times a Day As Needed for Anxiety. 90 tablet 1 11/19/2023 Active Flibanserin (Addyi) 100 MG tablet Take 100 mg by mouth Every Night. 30 tablet 1 02/18/2024 Active Active Problems Problem Noted Date Diagnosed Date 05/12/2021 39 weeks gestation of 05/08/2021 Dizziness 05/02/2021 Back pain affecting in second trimeste r 12/21/2020 SGA (small for gestational a ge), , affecting care of mother, antepartum, third trimester, other fetus 12/21/2020 Overview (12/21/2020): Mild 1 week growth lag, repeat ultrasound 32 weeks Bipolar 1 disorder 11/23/2020 Previous section 09/30/2020 Threatened 09/19/2020 Resolved Problems Problem Noted Date Diagnosed Date Resolved Date 38 weeks gestation of 05/01/2021 05/08/2021 False labor after 37 weeks o f gestation without delivery 04/24/2021 05/08/2021 36 weeks gestation of 04/19/2021 05/08/2021 27 weeks gestation of 02/15/2021 05/08/2021 19 weeks gestation of 12/21/2020 02/15/2021 15 weeks gestation of 11/23/2020 11/23/2020 11 weeks gestation of 10/26/2020 11/23/2020 Less than 8 weeks gestation of 09/30/2020 12/21/2020 Immunizations Immunization Administration Dates Next Due Tdap 04/27/2021 Family History Medical History Relation Name Comments Breast cancer Neg Hx Cervical cancer Neg Hx Colon cancer Neg Hx Ovarian cancer Neg Hx Uterine cancer Neg Hx Social History Tobacco Use Types Packs/Day Years Used Date Smoking Tobacco: Former Cigarettes 0.3 2 0 07/29/2015 - 07/29/2017 Smokeless Tobacco: Never Alcohol Use Standard Drinks/Week Comments Yes 0 (1 standard drink = 0.6 oz pur e alcohol) Socially AUDIT-C Answer Date Recorded Q1: How often do you have a drink containing alc ohol? Monthly or less 09/30/2020 Q2: How many drinks containi ng alcohol do you have on a typical day when you are drinking? 1 or 2 09/30/2020 Q3: How often do you have si x or more drinks on one occasion? Never 09/30/2020 [place] Depression Scale Answer Date Recorded [place] Depression Scale Total 8 05/18/2021 The thought of harming myself has occurred to me . Never 05/18/2021 Abuse Screen Answer Date Recorded Unsafe at Home or Work/School Not on file Feels Threatened by Someone? Not on file 05/2023 Does Anyone Keep You from Co ntacting Others or Doint Things Outside the Home? Not on file 05/08/2023 Physical Sign of Abuse Present Not on file 1 Housing Stability Answer Date Recorded Current Living Arrangements Not on file 04/28 Potentially Unsafe Housing Conditions Not on sarina e 05/08/2023 Family and Community Support Answer Berny e Recorded Help with Day-to-Day Activities Not on file 05/08/2023 Lonely or Isolated Not on file 05/08/2023 Employment Answer Date Recorded Do you want help finding or keeping work or a abbie b? Not on file 05/08/2023 Disabilities Answer Date Recorded Concentrating, Remembering, or Making Decisions Difficulty Not on file 05/08/2023 Doing Errands Independently Difficulty Not on fi le 05/08/2023 Education Answer Date Recorded Help with school or training? Not on file Preferred Language Not on file 05/08/2023 Comments No Sex and Gender Information Value Date Recorded Sex Assigned at Not on file Legal Sex Female 12:40 PM EST Gender Identity Not on file Sexual Orientation Not on file Last Filed Vital Signs Vital Sign Reading Time Taken Comments Blood Pressure 114/72 08/07/2023 2:01 PM EST Pulse 77 05/16/2021 7:00 AM EDT Temperature 36.7 C (98.1 F) 05/16/2021 7:00 AM EDT Respiratory Rate 18 08/07/2023 2:01 PM EST Oxygen Saturation 95% 05/13/2021 11:05 PM EDT Inhaled Oxygen Concentration - - Weight 73.9 kg (163 lb) 08/07/2023 2:01 PM EST Height 152.4 cm (5') 08/07/2023 2:01 PM EST Body Mass Index 31.83 08/07/2023 2:01 PM EST Plan of Treatment Health Maintenance Due Date Last Done Comments ANNUAL PHYSICAL 12/31/2019 COVID-19 Vaccine ( season) 2024 07/10/2022, 04/12/2022 Annual Gynecologic Pelvic and Breast Exam 08/08/2024 08/07/2023, 06/27/2021 INFLUENZA VACCINE 04/28/2025 05/13/2024, , 10/14/2015, Additional history exists PAP SMEAR 08/07/2026 08/07/2023, 06/29, 06/27/2021, Additional history exists TDAP/TD VACCINES (4 - Td or Tdap) 04/27/2031 04/27/2021, 03/23/2019, 09/21/2008 HEPATITIS C SCREENING Completed 09/30/2020 CHLAMYDIA SCREENING Discontinued 08/07/2023, Pneumococcal Vaccine 0-49 Aged Out No longer eligible based on patient's age to complete this topic Procedures Procedure Name Priority Date/Time Associated Diagnosis Comments LIQUID-BASED PAP SMEAR WITH HPV GENOTYPING REGARDLESS OF INTERPRETATION, [facility] (DIGNA,COR,MAD) Routine 08/07/2023 3:20 PM EST Women's annual routine gynecological examination SCANNED - PAP SMEAR Routine 06/27/2021 OBSTETRIC PANEL Routine 09/30/2020 11:55 AM EST Less than 8 weeks gestation of from Last 3 Months or Most Recently Relevant to Health Maintenance Results * LIQUID-BASED PAP SMEAR WITH HPV GENOTYPING REGARDLESS OF INTERPRETATION (DIGNA,COR,MAD) (08/07/2023 3:20 PM EST) Reference Lab Report [facility] [address] [place] [address] or [phone] Kvng Fuller M.D., [place] PATIENT NAME LABORATORY NO. 651 RAJAT JAIMES. [id number] AGE SEX SSN CLIENT REF # [id number] ([facility]) 26 1995 F [id number] [facility] MAXIMILIAN DYE REQUESTING [place]orge [place] [address] DRISS JIMENEZ DATE COLLECTED DATE RECEIVED DATE REPORTED 08/07/2023 08/07/2023 08/12/2023 Cytology Thin Prep DIAGNOSIS: Negative for intraepithelial lesion or malignancy Multiple factors can influence accuracy of Pap tests; therefore, screening at regular intervals is necessary for early cancer detection. SPECIMEN ADEQUACY: SATISFACTORY FOR EVALUATION Transformation zone is present. SOURCE OF SPECIMEN: CERVICAL/ENDOCERV ICAL SLIDES: 1 CLINICAL HISTORY: Women's annual routine gynecological examination HPV HR-HPV POOL: Negative The Aptima HPV assay is an in vitro nucleic acid amplification test for the qualitative detection of E6/E7 viral messenger RNA from 14 high risk types of HPV in cervical specimens. The high risk HPV types detected include: 16, 18, 31, 33, 35, 39, 45, 51, 52, 56, 58, 59, 66, 68 FRANCHISE SPECIALIST: RAYA ERAZO (ASCP) CPT CODES: 65060, 17245 08/12/2023 10:11 AM EST [facility] ThinPrep Vial Cervix uteri structure / Unknown Collection / Unknown 08/07/2023 3:20 PM EST 08/07/2023 3:20 PM EST us Driss Jimenez APRN PATHOLOGY/CYTOLOGY ORDERABLES Final Result Performing Organization Address [facility]/ZIP Co de Phone Number [facility]
[address] [place] [address], * PAP SMEAR SCANNED (06/27/2021) us Driss Jimenez APRN CHART REVIEW TABS Final Re sult Performing Organization Address [facility] Co de Phone Number [facility]
[address] [place] [address], [place] [phone] * Obstetric Panel (09/30/2020 11:55 AM EST) Hepatitis B Surface Ag Negative Negative [facility] Hep C Virus Ab <0.1 0.0 - 0.9 s/co ratio [facility] Comment: Negative: < 0.8 Indeterminate: 0.8 - 0.9 Positive: > 0.9 The CDC recommends that a positive HCV antibody result be followed up with a HCV Nucleic Acid Amplification test (054703). RPR Non Reactive Non Reactive [facility] Rubella Antibodies, IgG 2.72 Immune >0.99 index [facility] Comment: Non-immune <0.90 Equivocal 0.90 - 0.99 Immune >0.99 ABO Type B [facility] Rh Factor Positive [facility] Comment: Please note: Prior records for this patient's ABO / Rh type are not available for additional verification. Antibody Screen Negative Negative [facility] WBC 9.2 3.4 - 10.8 x10E3/uL [facility] RBC 4.48 3.77 - 5.28 x10E6/uL [facility] Hemoglobin 13.3 11.1 - 15.9 g/dL [facility] Hematocrit 40.2 34.0 - 46.6 % [facility] MCV 90 79 - 97 fL [facility] MCH 29.7 26.6 - 33.0 pg [facility] MCHC 33.1 31.5 - 35.7 g/dL [facility] RDW 13.0 11.7 - 15.4 % [facility] Platelets 319 150 - 450 x10E3/uL [facility] Neutrophil Rel % 72 Not Estab. % [facility] Lymphocyte Rel % 20 Not Estab. % [facility] Monocyte Rel % 6 Not Estab. % [facility] Eosinophil Rel % 1 Not Estab. % [facility] Basophil Rel % 1 Not Estab. % [facility] Neutrophils Absolute 6.6 1.4 - 7.0 x10E3/uL [facility] Lymphocytes Absolute 1.8 0.7 - 3.1 x10E3/uL [facility] Monocytes Absolute 0.6 0.1 - 0.9 x10E3/uL [facility] Eosinophils Absolute 0.1 0.0 - 0.4 x10E3/uL [facility] Basophils Absolute 0.1 0.0 - 0.2 x10E3/uL [facility] Immature Granulocyte Rel % 0 Not Estab. % [facility] Immature Grans Absolute 0.0 0.0 - 0.1 x10E3/uL [facility] Blood 09/30/2020 11:5 5 AM EST 10/01/2020 Narrative [facility] - 10/04/2020 2:35 PM EST Performed at: 01 - [facility] [id number] [place] [facility] Director: Isaac Orellana PhD, Phone: [phone] Tylor Butterfield MD LAB BLOOD ORDERABLES Final Result [facility] (AMBULATORY) [address] [place] [address], [facility] [address] [place] [address], from Last 3 Months or Most Recently Relevant to Health Maintenance Insurance [employer] P[facility] Advance Directives * CPR (Attempt to Resuscitate) (Latest Code Status on File) Date Activated Date Inactivated Comments 05/14/2021 12:00 AM 05/16/2021 2:33 PM Question Answer Comments Code Status (Patient has no pulse and is not breathing): CPR (Attempt to Resuscitate) Medical Interventions (Patie nt has pulse or is breathing): Full Care Teams Web Communications Specialist Relationship Specialty Start Date End Date Blair Smalls MD PCP - General Emergency Medicine 09/29/20
== END 2025-02-13 23:59 | disposition home or self-care (01) ==
LOC: LAB.DROPOF 02-15 09:57
PROVIDERS: PCP Nurse Practitioner Family; Visit Provider Nurse Practitioner Family
DX: R39.15 Urgency of urination (principal)
CPT/HCPCS: 87086

== ENCOUNTER 2025-02-15 13:00 | Outpatient (CLI) | payer OTHER, SELFPAY ==
[2025-02-15 15:21] LABS: Microscopic, Urine URINE MICROSCOPIC (MICROSCOPIC)
[2025-02-15 15:49] LABS: Bilirubin,Urine Negative (Negative); Color,Urine YELLOW (Yellow); Glucose,Urine (UA) Negative (Negative); Ketones,Urine Negative (Negative); Leukocyte Esterase,Urine 1+ (Negative); PH,Urine 6.0 (5.0-8.5); Protein,Urine Negative (Negative); Specific Gravity, Urine 1.025 (1.005-1.030); Urobilinogen,Urine 0.2 EU/dl (0.2)
[2025-02-15 16:22] LABS: WBC,Urine 20-50 #/hpf (0-3)
[2025-02-15 16:23] LABS: Bacteria,Urine Trace /lpf; Mucus,Urine 2+ /lpf
--- OUTSIDE RECORDS SUMMARY | 2025-02-16 12:16 | XMS_ITS | Data Portability ---
Author Organization [facility] [employer] [place] - MSE Address [address] [place] [address] Assessment No assessment recorded. Plan of Treatment Reminders Order Date Submit Date Provider Last Modified By Organization Details Last Modified Time Details Appointments None recorded. Lab urinalysis, dipstick [address], [address] [place], [address], 5 17:56:47 vaginal pathogens panel, JUANJOSE+probe, vaginal fluid 2024 025 [facility] [address] [place], [address], 5 07:09:00 culture, urine 2024 025 [facility] [address] [place], [address], 5 07:09:00 urinalysis, dipstick [address], [address] [place], [address], 5 09:16:03 culture, urine 2024 025 [facility]), [address] [place], [address], 5 07:12:41 lipid panel, serum 2024 025 [facility]), [address] [place], [address], 5 07:09:26 CMP, serum or plasma 2024 025 [facility]), [address] [place], [address], 5 07:09:26 CBC w/ auto diff 2024 025 [facility]), [facility] [place], [address], 5 07:09:25 TSH, ultra-sensi tive, serum 2024 025 [facility]), [address] [place], [address], 5 07:09:27 vitamin D, 25-hydroxy, total, serum 2024 025 [facility]), [address] [place], [address], 5 07:09:27 Hepatitis C IgG Ab, qual, serum 2024 025 [facility]), [address] [place], [address], 5 07:09:27 HIV 1 + 2, meaningful use set 2024 025 [facility]), [address] [place] [address], [address], 5 07:09:28 Referral None recorded. Procedures None recorded. Surgeries None recorded. Imaging None recorded. Medication Orders levofloxaci n 500 mg tablet 2024 025 [facility], [address] [place], [address], 17:44:24 Medrol (Lenny) 4 mg tablets in a dose pack 2024 025 [facility] [address], [address] [place] [address], [address], 09:16:12 meclizine 25 mg tablet 2024 025 [facility] [address], [address] [place] [address], [address], 09:16:10 Patient TargetsNo targets recorded. Patient Instructions Encounter Date Encounter Id Patient Instructions Last Modified By Organization Details Last Modified Time 08/31/2024 [id number] back care and preventing injuries: care instructions [email or web address] Not available 08/31/2024 17:18:01 getting back to normal after low back pain: care instructions [email or web address] Not available 08/31/2024 17:18:01 learning about relief for back pain [email or web address] Not available 08/31/2024 17:18:01 body mass index: care instructions [email or web address] Not available 09/01/2024 11:37:34 learning about healthy weight Not available 09/01/2024 11:37:34 12/17/2024 [id number] painful urinatio n (dysuria): care instructions [email or web address] Not available 12/17/2024 17:56:47 Reason for Referral None Reported. Results Created Date Observation Date Name Description Value Unit Range Abnormal Flag Note LastModifiedBy Organization Detail LastModifiedTime 09/01/1909/02/2024 CBC WITH DIFFE RENTI AL/PL ATELE T WBC 6.1 x10e3 /uL 3.4-10 .8 normal Not Available [facility] ([facility]) [address] [facility], [place], [address], 09/03/2024 07:09:25 09/01/19 25 09/02/2024 CBC WITH DIFFE RENTI AL/PL ATELE T RBC 4.59 x10e6 /uL 3.77-5 .28 normal Not Available [facility] ([facility]) [address] [facility], [place], [address], 09/03/2024 07:09:25 09/01/1909/02/2024 CBC WITH DIFFE RENTI AL/PL ATELE T hemoglobin 13.7 g/dL 11.1-1 5.9 normal Not Available [facility] ([facility]) [address] [place], [address], 09/03/2024 07:09:25 09/01/1909/02/2024 CBC WITH DIFFE RENTI AL/PL ATELE T hematocrit 42.4 % 34.0-4 6.6 normal Not Available [facility] ([facility]) [address] [facility], [place], [address], 09/03/2024 07:09:25 09/01/1909/02/2024 CBC WITH DIFFE RENTI AL/PL ATELE T MCV 92 fL 79-97 normal Not Available [facility] ([facility]) [address] [place], [address], 09/03/2024 07:09:25 09/01/1909/02/2024 CBC WITH DIFFE RENTI AL/PL ATELE T MCH 29.8 pg 26.6-3 3.0 normal Not Available [facility] ([facility]) [address] [place], [address], 09/03/2024 07:09:25 09/01/1909/02/2024 CBC WITH DIFFE RENTI AL/PL ATELE T MCHC 32.3 g/dL 31.5-3 5.7 normal Not Available [facility] ([facility]) [address] [place], [address], 09/03/2024 07:09:25 09/01/19 25 09/02/2024 CBC WITH DIFFE RENTI AL/PL ATELE T RDW 12.5 % 11.7-1 5.4 Not Available [facility] ([facility]) [address] [facility], [place], [address], 09/03/2024 07:09:25 09/01/1909/02/2024 CBC WITH DIFFE RENTI AL/PL ATELE T platelets 350 x10e3 /uL 150-45 0 normal Not Available [facility] ([facility]) [address] [facility], [place], [address], 09/03/2024 07:09:25 09/01/1909/02/2024 CBC WITH DIFFE RENTI AL/PL ATELE T neutrophils 59 % not estab. normal Not Available [facility] ([facility]) [address] [facility], [place], [address], 09/03/2024 07:09:25 09/01/19 25 09/02/2024 CBC WITH DIFFE RENTI AL/PL ATELE T lymphs 31 % not estab. normal Not Available [facility] ([facility]) [address] [facility], [place], [address], 09/03/2024 07:09:25 09/01/19 25 09/02/2024 CBC WITH DIFFE RENTI AL/PL ATELE T monocytes 8 % not estab. normal Not Available [facility] ([facility]) [address] [facility], [place], [address], 09/03/2024 07:09:25 09/01/1909/02/2024 CBC WITH DIFFE RENTI AL/PL ATELE T eos 1 % not estab. normal Not Available [facility] ([facility]) [address] [facility], [place], [address], 09/03/2024 07:09:25 09/01/19 25 09/02/2024 CBC WITH DIFFE RENTI AL/PL ATELE T basos 1 % not estab. normal Not Available [facility] (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) [address] [place], [address], 09/03/2024 07:09:25 09/01/19 25 09/02/2024 CBC WITH DIFFE RENTI AL/PL ATELE T neutrophils (absolute) 3.6 x10e3 /uL 1.4-7. 0 normal Not Available [facility] ([facility]) [address] [place], [address], 09/03/2024 07:09:25 09/01/19 25 09/02/2024 CBC WITH DIFFE RENTI AL/PL ATELE T lymphs (absolute) 1.9 x10e3 /uL 0.7-3. 1 normal Not Available [facility] ([facility]) [address] [place], [address], 09/03/2024 07:09:25 09/01/19 25 09/02/2024 CBC WITH DIFFE RENTI AL/PL ATELE T monocytes(ab solute) 0.5 x10e3 /uL 0.1-0. 9 normal Not Available [facility] ([facility]) [address] [place], [address], 09/03/2024 07:09:25 09/01/1909/02/2024 CBC WITH DIFFE RENTI AL/PL ATELE T eos (absolute) 0.1 x10e3 /uL 0.0-0. 4 normal Not Available [facility] ([facility]) [address] [place], [address], 09/03/2024 07:09:25 09/01/19 25 09/02/2024 CBC WITH DIFFE RENTI AL/PL ATELE T baso (absolute) 0.1 x10e3 /uL 0.0-0. 2 normal Not Available [facility] ([facility]) [address] [facility] [place], [address], 09/03/2024 07:09:25 09/01/1909/02/2024 CBC WITH DIFFE RENTI AL/PL ATELE T immature granulocytes 0 % not estab. Not Available [facility] ([facility]) [address] [facility], [place], [address], 09/03/2024 07:09:25 09/01/19 25 09/02/2024 CBC WITH DIFFE RENTI AL/PL ATELE T immature grans (abs) 0.0 x10e3 /uL 0.0-0. 1 Not Available [facility] ([facility]) [address] [facility], [place], [address], 09/03/2024 07:09:25 09/01/19 25 09/02/2024 CBC WITH DIFFE RENTI AL/PL ATELE T NRBC ARCHITECTURE PROFESSOR Not Available [facility] ([facility]) [address] [facility], [place], [address], 09/03/2024 07:09:25 09/01/19 25 09/02/2024 CBC WITH DIFFE RENTI AL/PL ATELE T hematology comments: ARCHITECTURE PROFESSOR Not Available [facility] ([facility]) [address] [facility], [place], [address], 09/03/2024 07:09:25 09/01/1909/02/2024 COMP. METAB OLIC PANEL (14) glucose 69 mg/dL 70-99 below low normal Not Available [facility] ([facility]) [address] [facility], [place], [address], 09/03/2024 07:09:26 09/01/19 25 09/02/2024 COMP. METAB OLIC PANEL (14) BUN 9 mg/dL 6-20 normal Not Available [facility] ([facility]) [address] [place], [address], 09/03/2024 07:09:26 09/01/19 25 09/02/2024 COMP. METAB OLIC PANEL (14) creatinine 0.82 mg/dL 0.57-1 .00 normal Not Available [facility] ([facility]) [address] [facility] [place], [address], 09/03/2024 07:09:26 09/01/19 25 09/02/2024 COMP. METAB OLIC PANEL (14) eGFR 100 mL/mi n/1.7 3 >59 normal Not Available [facility] ([facility]) [address] [facility], [place], [address], 09/03/2024 07:09:26 09/01/19 25 09/02/2024 COMP. METAB OLIC PANEL (14) BUN/creatini ne ratio 11 9-23 normal Not Available [facility] ([facility]) [address] [facility], [place], [address], 09/03/2024 07:09:26 09/01/19 25 09/02/2024 COMP. METAB OLIC PANEL (14) sodium 137 mmol/ L 134-14 4 normal Not Available [facility] ([facility]) [address] [facility] [place], [address], 09/03/2024 07:09:26 09/01/19 25 09/02/2024 COMP. METAB OLIC PANEL (14) potassium 4.2 mmol/ L 3.5-5. 2 normal Not Available [facility] ([facility]) [address] [facility] [place], [address], 09/03/2024 07:09:26 09/01/19 25 09/02/2024 COMP. METAB OLIC PANEL (14) chloride 101 mmol/ L 96-106 normal Not Available [facility] ([facility]) [address] [facility], [place], [address], 09/03/2024 07:09:26 09/01/19 25 09/02/2024 COMP. METAB OLIC PANEL (14) carbon dioxide, total 21 mmol/ L 20-29 normal Not Available [facility] [address] [facility] [place], [address], 09/03/2024 07:09:26 09/01/19 25 09/02/2024 COMP. METAB OLIC PANEL (14) calcium 9.8 mg/dL 8.7-10 .2 normal Not Available [facility] ([facility] [address] [facility] [place], [address], 09/03/2024 07:09:26 09/01/19 25 09/02/2024 COMP. METAB OLIC PANEL (14) protein, total 7.6 g/dL 6.0-8. 5 normal Not Available [facility] ([facility]) [address] [place], [address], 09/03/2024 07:09:26 09/01/19 25 09/02/2024 COMP. METAB OLIC PANEL (14) albumin 4.8 g/dL 4.0-5. 0 normal Not Available [facility] ([facility] [address] [place], [address], 09/03/2024 07:09:26 09/01/19 25 09/02/2024 COMP. METAB OLIC PANEL (14) globulin, total 2.8 g/dL 1.5-4. 5 Not Available [facility] ([facility]) [address] [facility] [place], [address], 09/03/2024 07:09:26 09/01/19 25 09/02/2024 COMP. METAB OLIC PANEL (14) bilirubin, total 0.3 mg/dL 0.0-1. 2 normal Not Available [facility] ([facility]) [address] [facility] [place], [address], 09/03/2024 07:09:26 09/01/19 25 09/02/2024 COMP. METAB OLIC PANEL (14) alkaline phosphatase 85 IU/L 44-121 normal Not Available [facility] ([facility]) [address] [facility] [place], [address], 09/03/2024 07:09:26 09/01/19 25 09/02/2024 COMP. METAB OLIC PANEL (14) AST (SGOT) 18 IU/L 0-40 normal Not Available [facility] ([facility]) [address] [facility] [place], [address], 09/03/2024 07:09:26 09/01/19 25 09/02/2024 COMP. METAB OLIC PANEL (14) ALT (SGPT) 16 IU/L 0-32 normal Not Available [facility] ([facility]) [address] [place], [address], 09/03/2024 07:09:26 09/01/19 25 09/02/2024 LIPID PANEL cholesterol, total 196 mg/dL 100-19 9 normal Not Available [facility] ([facility]) [address] [place], [address], 09/03/2024 07:09:26 09/01/19 25 09/02/2024 LIPID PANEL triglyceride s 113 mg/dL 0-149 normal Not Available [facility] ([facility]) [address] [place], [address], 09/03/2024 07:09:26 09/01/19 25 09/02/2024 LIPID PANEL HDL cholesterol 48 mg/dL >39 normal Not Available [facility]) [address] [place], [address], 09/03/2024 07:09:26 09/01/19 25 09/02/2024 LIPID PANEL VLDL cholesterol ofelia 20 mg/dL 5-40 Not Available [facility] ([facility]) [address] [place], [address], 09/03/2024 07:09:26 09/01/19 25 09/02/2024 LIPID PANEL LDL chol calc ([facility]) 128 mg/dL 0-99 above high normal Not Available [facility] ([facility]) [address] [facility] [place], [address], 09/03/2024 07:09:26 09/01/19 25 09/02/2024 LIPID PANEL LDL calc comment: ARCHITECTURE PROFESSOR Not Available [facility] ([facility]) [address] [facility], [place], [address], 09/03/2024 07:09:26 09/01/19 25 09/02/2024 HCV ANTIB DORIE CASCA DE(PC R/GEN O) HCV Ab Non Reacti ve non reacti ve Not Available [facility] ([facility]) [address] [facility], [place], [address], 09/03/2024 07:09:27 09/01/1909/02/2024 HCV ANTIB DORIE CASCA DE(PC R/GEN O) interpretati on: Commen t Not infec pk with HCV unles s early or acute infec tion is suspe cted (whic h may be delay ed in an immun ocomp romis ed indiv idual ), or other evide nce exist s to indic ate HCV infec tion. Not Available [facility] ([facility]) [address] [facility], [place], [address], 09/03/2024 07:09:27 09/01/1909/02/2024 TSH TSH 1.110 uIU/m L 0.450- 4.500 normal Not Available [facility] ([facility]) [address] [facility], [place], [address], 09/03/2024 07:09:27 09/01/1909/03/2024 VITAM IN D, 25-HY [...] Yahir mace [place]: The Natio nal [facility] Press . 2. Mary Kate k MF, [place], Bisch off-F errar i YOON, et al. Evalu ation , treat ment, and preve ntion of vitam in D defic iency : an Endoc rine Socie ty clini ofelia pract ice guide line. JCEM. 2010; 96(7) :1911 -30. Not Available [facility] ([facility]) [address] [facility], [place], [address], 09/03/2024 07:09:27 09/01/1909/02/2024 HIV AB/P2 4 AG WITH REFLE X HIV Ab/P24 Ag screen Non Reacti ve non reacti ve HIV Negat marjorie HIV-1 /HIV- 2 antib odies and HIV-1 p24 antig en were NOT detec pk. There is no labor atory evide nce of HIV infec tion. Not Available [facility] ([facility]) [address] [facility], [place], [address], 09/03/2024 07:09:27 12/01/1912/02/2024 URINE CULTU RE, ROUTI NE urine culture, routine Final report Not Available [facility] ([facility]) [address] [facility], [place], [address], 12/02/2024 07:12:41 12/01/19 25 12/02/2024 URINE CULTU RE, ROUTI NE result 1 COMMEN T Mixed uroge nital kike 10,00 0-25, 000 colon y formi ng units per mL Not Available [facility] ([facility]) [address], [place], [address], 12/02/2024 07:12:41 12/01/19 25 11/30/2024 urina lysis , dipst ick Leukocytes Large Not Available [address], [place], [address], 11/30/2024 09:02:07 12/01/19 25 11/30/2024 urina lysis , dipst ick Nitrite negati ve Not Available [address], [address], 11/30/2024 09:02:07 12/01/19 25 11/30/2024 urina lysis , dipst ick Urobilinogen 1 Not Available [address], [place], [address], 11/30/2024 09:02:07 12/01/19 25 11/30/2024 urina lysis , dipst ick Protein Negati ve Not Available [address], [place], [address], 11/30/2024 09:02:07 12/01/19 25 11/30/2024 urina lysis , dipst ick pH 7.0 Not Available [address], [address], 11/30/2024 09:02:07 12/01/19 25 11/30/2024 urina lysis , dipst ick Blood Negati ve Not Available [address], [address], 11/30/2024 09:02:07 12/01/19 25 11/30/2024 urina lysis , dipst ick Specific Francitas 1.025 Not Available [address], [place], [address], 11/30/2024 09:02:07 12/01/19 25 11/30/2024 urina lysis , dipst ick Ketone Negati ve Not Available [address], [address], 11/30/2024 09:02:07 12/01/19 25 11/30/2024 urina lysis , dipst ick Bilirubin Negati ve Not Available [address], [address], 11/30/2024 09:02:07 12/01/19 25 11/30/2024 urina lysis , dipst ick Glucose Negati ve Not Available [address], [address], 11/30/2024 09:02:07 12/01/1911/30/2024 urina lysis , dipst ick Appearance Slight ly Cloudy Not Available [address], [address], 11/30/2024 09:02:07 12/01/1911/30/2024 urina lysis , dipst ick Color Dark Yellow Not Available [address], [address], 11/30/2024 09:02:07 12/18/1912/20/2024 NUSWA B VAGIN ITIS PLUS (VG+) atopobium vaginae Low - 0 score Not Available [facility] ([facility]) [address] [facility], [place], [address], 12/22/2024 07:09:00 12/18/1912/20/2024 NUA B VAGIN ITIS PLUS (VG+) bvab 2 Low - 0 score Not Available [facility] ([facility]) [address] [place], [address], 12/22/2024 07:09:00 12/18/1912/20/2024 NUA B VAGIN ITIS [...] prese nce of BV. Not Available [facility] ([facility]) [address] [facility], [place], [address], 12/22/2024 07:09:00 12/18/1912/20/2024 NUA B VAGIN ITIS PLUS (VG+) tre albicans, JUANJOSE Negati ve negati ve Not Available [facility] ([facility]) [address] [place], [address], 12/22/2024 07:09:00 12/18/1912/20/2024 NUA B VAGIN ITIS PLUS (VG+) tre glabrata, JUANJOSE Negati ve negati ve Not Available [facility] ([facility]) [address] [place], [address], 12/22/2024 07:09:00 12/18/1912/22/2024 NUA B VAGIN ITIS PLUS (VG+) trich vag by JUANJOSE Negati ve negati ve Not Available [facility] ([facility]) [address] [place], [address], 12/22/2024 07:09:00 12/18/19 25 12/22/2024 NUSWA B VAGIN ITIS PLUS (VG+) chlamydia trachomatis, JUANJOSE Negati ve negati ve Not Available [facility] ([facility]) [address] [facility], [place], [address], 12/22/2024 07:09:00 12/18/19 25 12/22/2024 NUSWA B VAGIN ITIS PLUS (VG+) neisseria gonorrhoeae, JUANJOSE Negati ve negati ve Not Available [facility] ([facility]) [address] [facility], [place], [address], 12/22/2024 07:09:00 12/18/19 25 12/20/2024 URINE CULTU RE, ROUTI NE urine culture, routine Final report Not Available [facility] ([facility]) [address] [facility], [place], [address], 12/22/2024 07:09:00 12/18/19 25 12/20/2024 URINE CULTU RE, ROUTI NE result 1 No growth Not Available [facility] ([facility]) [address] [facility], [place], [address], 12/22/2024 07:09:00 12/18/19 25 12/17/2024 urina lysis , dipst ick Leukocytes Trace Not Available [address], [address], 12/17/2024 17:49:25 12/18/19 25 12/17/2024 urina lysis , dipst ick Nitrite negati ve Not Available [address], [address], 12/17/2024 17:49:25 12/18/19 25 12/17/2024 urina lysis , dipst ick Urobilinogen 1 Not Available [address], [place], [address], 12/17/2024 17:49:25 12/18/19 25 12/17/2024 urina lysis , dipst ick Protein Negati ve Not Available [address], [place], [address], 12/17/2024 17:49:25 12/18/19 25 12/17/2024 urina lysis , dipst ick pH 7.0 Not Available [address], [place], [address], 12/17/2024 17:49:25 12/18/19 25 12/17/2024 urina lysis , dipst ick Blood Negati ve Not Available [address], [place], [address], 12/17/2024 17:49:25 12/18/19 25 12/17/2024 urina lysis , dipst ick Specific Francitas 1.015 Not Available [address], [place], [address], 12/17/2024 17:49:25 12/18/19 25 12/17/2024 urina lysis , dipst ick Ketone Negati ve Not Available [address], [place], [address], 12/17/2024 17:49:25 12/18/19 25 12/17/2024 urina lysis , dipst ick Bilirubin Negati ve Not Available [address], [place], [address], 12/17/2024 17:49:25 12/18/19 25 12/17/2024 urina lysis , dipst ick Glucose Negati ve Not Available [facility] [address] [place] [address], [place], [address], 12/17/2024 17:49:25 12/18/1912/17/2024 urina lysis , dipst ick Appearance Clear Not Available [facility] [place] [address] [place] [address], [address], 12/17/2024 17:49:25 12/18/1912/17/2024 urina lysis , dipst ick Color Yellow Not Available [facility] [address] [place] [address], [address], 12/17/2024 17:49:25 Result Notes None recorded. Problems Name Problem SNOMED Code Status Onset Date Resolution Date Notes Provider Name and Address Organization Details Recorded Time Contracepti on care management Active 2019 Problem Code: Z30.9; Problem Code Type: ICD-10; Not Available [facility] 2 22:00:08 Surveillanc e of subcutaneou s contracepti ve implant Active 2019 Not Available [facility] 2 22:00:08 Low back pain 612746644 Active 2024 [facility] [address] [place] [address], [address] , [employer] 5 16:57:55 Generalized anxiety disorder 96734774 Active 2024 [facility] [address] [place] [address], [address] , [employer] 5 08:42:42 Vertigo 098395619 Active 2024 [facility] [address] [place] [address], [address] , [employer] 5 17:17:48 Acute urinary tract infection 927022471 Active 2024 [facility] [address] [place] [address], [address] , [employer] 5 09:15:40 Nausea and vomiting 76442304 Active 2024 [facility] [address] [place] [address], [address] , [employer] 5 15:37:35 Dysuria 46290227 Active 2024 [facility] [address] [place] [address], [address] [place] [address] , [employer] 5 09:19:50 Overactive urinary bladder 946974341 Active 2024 [facility] [address] [place] [address], [address] [place] [address] , [employer] 5 09:34:59 Problem Notes None recorded. Procedures Surgical History Date Name Laterality Status Provider Name and Address Organization Details Recorded Time 08/21/19 24 Date of Last Pap Smear completed [employer] 08/31/2024 16:36:25 Caesarean Section completed [employer] 08/31/2024 16:36:26 Hernia Repair completed [employer] 08/31/2024 16:36:26 Tonsillectomy completed [employer] 08/31/2024 16:36:26 Imaging Results None recorded. [...] Address Organization Details Last Updated DateTime 5 [address].8 8 g 30.8 kg/m2 152.4 cm 86 /min 96 % 96 % 98.3 [degF] 108/72 mm[Hg] Mir[facility] [employer] 5 16:42:01 Date Recorded Body height Body mass index (BMI) Body weight Heart rate Oxygen saturation Oxygen saturation in Arterial blood by Pulse oximetry Body temperature Systolic And Diastolic Provider Name and Address Organization Details Last Updated DateTime 5 152.4 cm 30.9 kg/m2 35226.5 9 g 80 /min 98 % 98 % 98.6 [degF] 118/82 mm[Hg] Sandrine Munguia [employer] 5 09:00:55 Date Recorded Body height Body mass index (BMI) Body weight Oxygen saturation Oxygen saturation in Arterial blood by Pulse oximetry Heart rate Body temperature Systolic And Diastolic Provider Name and Address Organization Details Last Updated DateTime 5 152.4 cm 30.8 kg/m2 33416.8 8 g 98 % 98 % 88 /min 98.3 [degF] 118/86 mm[Hg] Mirna [facility] [employer] 5 17:38:19 Social History Question Answer Notes LastModified by Organization Details LastModified Time Tobacco Smoking Status Former Smoker Alberto Nash carine: 'Tobacco /Alcohol /Supplem ents'; Alberto holbrookmarisa: 'Former Smoker'; Not Available [facility] 04/03/2022 23:01:48 Do You Have An Advance [...] Information not available 08/31/2024 What Type Of Principal Solutions Architect Do You Use? [employer] Information not available 08/31/2024 Have You Been To An Area Known To Be High Risk For COVID-19? No Information not available 08/31/2024 Are You Deaf Or Do You Have Serious Difficulty Hearing? No Information not available 08/31/2024 What Type Of Diet Are You Following? REGULAR Information not available 08/31/2024 Who Is Your Employer? [employer] Information not available 08/31/2024 How Many Days [...] Do You Have A Medical Power Of Presser [employer]? No Information not available 08/31/2024 What Was [...] anxious, or unable to sleep at night)? [id number] Information not available 08/31/2024 Do you have [...] Hib, unspecified formulation 8 completed Mirna Vice [facility], [facility] [employer] 08/31/2024 16:36:36 IPV 8 completed Mirna Vice null, [employer] 08/31/2024 16:36:36 IPV 9 completed Mirna Vice null, [employer] 08/31/2024 16:36:36 IPV 1 completed Mirna Vice null, [employer] 08/31/2024 16:36:36 IPV 7 completed Mirna Vice null, [employer] 08/31/2024 16:36:36 MMR 9 completed Imrna Vice null, [employer] 08/31/2024 16:36:36 MMR 9 completed Mirna Vice null, [employer] 08/31/2024 16:36:36 MMR 1 completed Mirna Vice null, [employer] 08/31/2024 16:36:36 COVID-19, mRNA, LNP-S, PF, 100 mcg/0.5mL dose or 50 mcg/0.25mL dose 2 completed Mirna Vice null, [employer] 08/31/2024 16:36:36 COVID-19, mRNA, LNP-S, PF, 100 mcg/0.5mL dose or 50 mcg/0.25mL dose 2 completed Mirna Vice null, [employer] 08/31/2024 16:36:36 Tdap 9 completed Mirna Vice null, [employer] 08/31/2024 16:36:36 Tdap 9 completed Mirna Vice null, [employer] 08/31/2024 16:36:36 Tdap 1 completed Mirna Vice null, [employer] 08/31/2024 16:36:36 varicella 2 completed Mirna Vice null, [employer] 08/31/2024 16:36:36 varicella 8 completed Mirna Vice null, [employer] 08/31/2024 16:36:36 DTP 9 completed Mirna Vice null, [employer] 08/31/2024 16:36:36 DTP 1 completed Mirna Vice null, [employer] 08/31/2024 16:36:36 Hep B, unspecified formulation 8 completed Mirna Vice null, [employer] 08/31/2024 16:36:36 Hep B, unspecified formulation 7 completed Mirna Vice null, [employer] 08/31/2024 16:36:36 OPV, trivalent 8 completed Mirna Vice null, [employer] 08/31/2024 16:36:36 DTP-Hib 8 completed Mirna Vice null, [employer] 08/31/2024 16:36:36 DTP-Hib 8 completed Mirna Vice null, [employer] 08/31/2024 16:36:36 DTP-Hib 7 completed Mirna Vice null, [employer] 08/31/2024 16:36:36 Influenza, split virus, trivalent, preservative 9 completed Mirna Vice null, [employer] 08/31/2024 16:36:36 Influenza, split virus, trivalent, preservative 7 completed Mirna Vice null, [employer] 08/31/2024 16:36:36 HPV, quadrivalent 9 completed Mirna Vice null, [employer] 08/31/2024 16:36:36 Hep B, adolescent or pediatric 7 completed Mirna Vice null, [employer] 08/31/2024 16:36:36 Hep A, adult 8 completed Mirna Vice null, [employer] 08/31/2024 16:36:36 meningococcal MCV4P 9 completed Mirna Vice null, [employer] 08/31/2024 16:36:36 DTaP, unspecified formulation 9 completed Mirna Vice null, [employer] 08/31/2024 16:36:36 Influenza, split virus, quadrivalent, PF 6 completed Mirna Vice null, [employer] 08/31/2024 16:36:36 Influenza, split virus, quadrivalent, PF 9 completed Mirna Vice null, [employer] 08/31/2024 16:36:36 Past Encounters Encounter ID Performer Location Encounter Start Date Encounter Closed Date Diagnosis/Indication Diagnosis SNOMED-CT Code Diagnosis ICD10 Code Diagnosis Note [id number] RAI Alegria [address] [address] 08/31/2024 16:28:57 08/31/2024 17:16:43 Low back pain 093625614 M54.50 Generalize d anxiety disorder 53949840 F41.1 HIV screening 826095906 Z11.4 Hepatitis C screening 41 6206695 Z11.59 Hyperlipidemia 19044011 E78.5 Vitamin D deficiency 347 49100 E55.9 Adult heal th examination 090262868 Z00.00 Vertigo 535233566 R42 Body mass index 30+ - obesity 918854138 Z68.30 [id number] RAI Alegria [address] [address] 11/30/2024 08:44:22 11/30/2024 09:16:08 Acute urinary tract infection 538390673 N39.0 Increase hydration, culture pending. RTC if not improving. [id number] RAI Alegria [address] [address] 12/17/2024 17:24:58 12/22/2024 13:17:24 Dysuria 72202338 R30.0 Leukocytes in urine 2757 95863 R82.998 Health Concerns Section Related Observation LastModified by Organization Detai ls LastModified Time None Recorded Concern Status LastModified by Organization Details LastModified Time None Recorded Advance Directives Directive N: Payers Insurance Date Sequence Insurance Name Policy Number Policy Bella Covered Member ID Bella Member ID Guarantor Name 11/30/2024 1 [employer] Shanda Fiona [id number] Shanda Fiona 11/30/2024 SLIDING FEE SCHEDULE - DISCOUNT Shanda Jaimes 11/30/2024 1 *SELF PAY* Viola valentin Fiona 08/31/2024 1 [place] [id number] Shanda Nubia Felicianoon [id number] Shanda Jaimes 08/28/2024 2 [place] [id number] Shanda Jaimes [id number] Shanda Fiona Notes Date Note Type [...] to make it easier. RAI Alegria [address] [place], [address], [employer] 09/01/2024 11:38:21 5 text/html Dysuria, frequency, feelings of incomplete emptying of bladder X 1 week. Some nausea. No fever.Has been at the hospital with her mother who has been very ill. RAI Alegria [address] [place], [address], [employer] 11/30/2024 09:20:36 5 text/html Patient was seen a few weeks ago for potential UTI at [facility] and then [facility]. Has been given antibiotics, diflucan. She is still having urgency, frequency and burning when she urinates. Feels as if she does not empty bladder completely and that is making it hard to sleep. She denies itching, odor or discharge. RAI Alegria [address] [place] [address], [address], [facility] [employer] 12/22/2024 11:09:21 OBGyn Episode No OBEpisode recorded.
--- OUTSIDE RECORDS SUMMARY | 2025-02-16 12:16 | XMS_ITS | Encounter Summary ---
[facility] Address [address] [place] [address] Care Team Providers Care Technician Helper Instrument Name Role Phone Blair Smalls MD Primary Care Provider [phone] Reason for Visit * Reason Comments Med Refill Encounter Details Date Type Department Care Team (Late st Contact Info) Description 10/15/[address] [facility] [address] [facility] [address] [place] [address] Alivia Olsen, NETWORK INTERN First trimester Social History Tobacco Use Types [...] documented as of this encounter Care Teams Technician Helper Instrument Relationship Specialty Start Date End Date Blair Smalls MD PCP - General Emergency Medicine 09/29/20 documented as of this encounter
--- OUTSIDE RECORDS SUMMARY | 2025-02-16 12:16 | XMS_ITS | Clinical Summary ---
Author Organization [facility] Address [address] [place] [address] Care Team Providers Care String Winding Machine Operator Name Role Phone Blair Smalls MD Primary Care Provider [phone] Allergies No known active allergies Medications busPIRone [...] more drinks on one occasion? Never 09/30/2020 Liberty Depression Scale Answer Date Recorded Liberty Depression Scale Total 8 05/18/2021 The thought [...] Reference Lab Report [facility] [address] [place] [address] or [phone] Kvng Fuller M.D., Charge Nurse PATIENT NAME [facility]ATORY NO[facility] [id number] RAJAT JAIMES. [id number] AGE SEX SSN CLIENT REF # [facility] 28 1995 F [id number] [facility] MAXIMILIAN DYE REQUESTING [place] [address] DRISS JIMENEZ DATE COLLECTED DATE RECEIVED DATE [...] 51, 52, 56, 58, 59, 66, 68 SETTER COLD ROLLING MACHINE: RAYA ERAZO (ASCP) CPT CODES: 76246, [id number] 08/12/2023 10:11 AM EST [facility] ThinPrep Vial Cervix uteri structure / Unknown Collection / Unknown 08/07/2023 3:20 PM EST 08/07/2023 3:20 PM EST us Driss Jimenez APRN PATHOLOGY/CYTOLOGY ORDERABLES Final Result Performing Organization Address [facility]/ZIP Co de Phone Number [facility]
[address] [place] [address], * PAP SMEAR SCANNED (06/27/2021) us Driss Jimenez APRN CHART REVIEW TABS Final Re sult Performing Organization Address [facility] Co de Phone Number [facility]
[address] [place] [address], [place] [phone] * Obstetric Panel (09/30/2020 11:55 AM EST) Hepatitis B Surface Ag Negative Negative [facility] Hep C Virus Ab <0.1 0.0 - 0.9 s/co ratio [facility] Comment: Negative: < 0.8 Indeterminate: 0.8 - 0.9 Positive: > 0.9 The CDC recommends that a positive HCV antibody result be followed up with a HCV Nucleic Acid Amplification test (793538). RPR Non Reactive Non Reactive [facility] [...] 2:35 PM EST Performed at: 01 - [facility] [id number] Gis Mapping Technician: Isaac Orellana PhD, Phone: [phone] Tylor Butterfield MD LAB BLOOD ORDERABLES Final Result [facility] (AMBULATORY) [address] [place] [address], [facility] [address] [place] [address], from Last 3 Months or Most Recently Relevant to Health Maintenance Insurance [employer] [facility] [email or web address] PPO Advance Directives * CPR (Attempt to Resuscitate) (Latest Code Status on File) Date Activated Date Inactivated Comments 05/14/2021 12:00 AM 05/16/2021 2:33 PM Question Answer Comments Code Status (Patient has no pulse and is not breathing): CPR (Attempt to Resuscitate) Medical Interventions (Patie nt has pulse or is breathing): Full Care Teams String Winding Machine Operator Relationship Specialty Start Date End Date Blair Smalls MD PCP - General Emergency Medicine 09/29/20
== END 2025-02-15 23:59 | disposition home or self-care (01) ==
LOC: LAB.DROPOF 02-16 12:13
PROVIDERS: PCP Urology; Visit Provider Urology
DX: N34.2 Other urethritis (principal); R39.9 Unspecified symptoms and signs involving the genitourinary system
CPT/HCPCS: 81001; 87086

== ENCOUNTER 2025-03-14 09:35 | Emergency (ER) | payer OTHER, SELFPAY ==
--- OUTSIDE RECORDS SUMMARY | 2025-03-14 09:43 | XMS_ITS | Clinical Summary ---
Author Organization [facility] Address [address] [place] [address] Care Team Providers Care Set Designer Name Role Phone Blair Smalls MD Primary Care Provider [phone] Allergies No known active allergies Medications busPIRone [...] more drinks on one occasion? Never 09/30/2020 Howard Depression Scale Answer Date Recorded Howard Depression Scale Total 8 05/18/2021 The thought [...] Reference Lab Report [facility] [address] [place] [address] or [phone] Kvng Fuller M.D., Government Documents Librarian PATIENT NAME [facility]ATORY [facility] [address] RAJAT JAIMES. [id number] AGE SEX SSN CLIENT REF # [facility] 28 1995 F [id number] [facility] MAXIMILIAN DYE REQUESTING Gorge [place] [address] DRISS JIMENEZ DATE COLLECTED DATE RECEIVED DATE [...] 51, 52, 56, 58, 59, 66, 68 PRIMARY EDUCATION PROFESSOR: RAYA ERAZO (ASCP) CPT CODES: [id number], [id number] 08/12/2023 10:11 AM EST [facility] ThinPrep Vial Cervix uteri structure / Unknown Collection / Unknown 08/07/2023 3:20 PM EST 08/07/2023 3:20 PM EST us Driss Jimenez APRN PATHOLOGY/CYTOLOGY ORDERABLES Final Result Performing Organization Address [facility]/ZIP Co de Phone Number [facility]
[address] [place] [address], * PAP SMEAR SCANNED (06/27/2021) us Driss Jimenez APRN CHART REVIEW TABS Final Re sult Performing Organization Address [facility] Co de Phone Number [facility]
[address] [place] [address], [place] [phone] * Obstetric Panel (09/30/2020 11:55 AM EST) Hepatitis B Surface Ag Negative Negative [facility] Hep C Virus Ab <0.1 0.0 - 0.9 s/co ratio [facility] Comment: Negative: < 0.8 Indeterminate: 0.8 - 0.9 Positive: > 0.9 The CDC recommends that a positive HCV antibody result be followed up with a HCV Nucleic Acid Amplification test (802638). RPR Non Reactive Non Reactive [facility] [...] 2:35 PM EST Performed at: 01 - [facility] [id number] Fill Manager: Isaac Orellana PhD, Phone: [phone] Tylor Butterfield MD LAB BLOOD ORDERABLES Final Result [facility] (AMBULATORY) [address] [place] [address], [facility] [address] [place] [address], from Last 3 Months or Most Recently Relevant to Health Maintenance Insurance [employer] [facility] PPO Advance Directives * CPR (Attempt to Resuscitate) (Latest Code Status on File) Date Activated Date Inactivated Comments 05/14/2021 12:00 AM 05/16/2021 2:33 PM Question Answer Comments Code Status (Patient has no pulse and is not breathing): CPR (Attempt to Resuscitate) Medical Interventions (Patie nt has pulse or is breathing): Full Care Teams Set Designer Relationship Specialty Start Date End Date Blair Smalls MD PCP - General Emergency Medicine 09/29/20
--- OUTSIDE RECORDS SUMMARY | 2025-03-14 09:43 | XMS_ITS | Encounter Summary ---
[facility] [address] [place] [address] Care Team Providers Care Can Worker Name Role Phone Blair Smalls MD Primary Care Provider [phone] Reason for Visit * Reason Comments Med Refill Encounter Details Date Type Department Care Team (Late st Contact Info) Description 10/15/2020 Refill [facility] [address] [facility] [address] [place] [address] Alivia Olsen, PLASTIC ROLLER First trimester Social History Tobacco Use Types [...] documented as of this encounter Care Teams Can Worker Relationship Specialty Start Date End Date Blair Smalls MD PCP - General Emergency Medicine 09/29/20 documented as of this encounter
--- OUTSIDE RECORDS SUMMARY | 2025-03-14 09:43 | XMS_ITS | Clinical Summary ---
Author Organization Healthcare Address [address] [place] [address] Care Team Providers Care Material Carrier Name Role Phone Shaista Silva Primary Care Provider Social History Tobacco Use Types Packs/Day Years Used Date Smoking Tobacco: Never Assessed Comments Unknown Sex and Gender Information Value Date Recorded Sex Assigned at Not on file Legal Sex Female 7:42 PM EDT Gender Identity Not on file Sexual Orientation Not on file Plan of Treatment Upcoming Encounters Date Type Department Care Team ([facility] Contact Info) Description 04/13/2025 2:00 PM EDT Office Visit Medical Office Building Obstetrics and Gynecology [address] [place] [address] Tanner Santamaria MD [address] [place] [address] Health Maintenance Due Date Last Done Comments [facility]-Depression Screening 1995 [facility]-Hepatitis C Screening 1995 [facility]-/Child/Adol SDOH Screenings 1995 HPV Vaccines (2 - 2-dose series) 07/26/2009 01/24/2009 [facility]- SDOH Screenings 2015 [facility]-Adult SDOH Screenings 2015 [facility]-Pap Smear 2018 [id number]-42 Vaccine ( season) 2024 07/10/2022, 04/12/2022 [facility]-Influenza Vaccine (#1) 03/29/202504/20, 10/14/2015, 05/05/2009, Additional history exists [facility]-DTaP,Tdap,and Td Vaccines (9 - Td or Tdap) 04/27/2031 04/27/2021, 03/23/2019, 09/21/2008, Additional history exists [facility]-Zoster Vaccines (1 of 2) 2047 11/06/2001, 05/03/1998 [facility]-Hepatitis B Vaccines Completed 998, 1997, 1997 [facility]-HIB Vaccines Completed 05/03/1998, , 1997, Additional history exists [facility]-IPV Vaccines Completed 06/16/2001, 06/1999, 05/03/1998, Additional history exists [facility]-Varicella Vaccines Completed 11/06/2001, 1997 [facility]-Hepatitis A Vaccines Aged Out 07/04/2018 No longer eligible based on patient's age to complete this topic [facility]-HIV Screening Completed 09/29/2020 [facility]-Pneumococcal Vaccine: Pediatrics (0 to 5 Years) and At-Risk Patients (6 to 49 Years) Aged Out No longer eligible based on patient's age to complete this topic [facility]-Rotavirus Vaccines Aged Out No lo nger eligible based on patient's age to complete this topic Procedures Procedure Name Priority Date/Time Associated Diagnosis Comments HIV 1/2 ANTIBODY/ANTIGEN SCREEN WITH REFLEX TO HIV I/II DIFFERENTIATION Routine 09/29/2020 6:16 PM EST from Last 3 Months or Most Recently Relevant to Health Maintenance Results * HIV 1 & 2 Antibody/Antigen Screen (09/29/2020 6:16 PM EST) HIV 1 Result NONREACTIVE Screening for HIV 1 and 2 antibodies is NONREACTIVE. No confirmatory testing is required. SUNQUEST 09/29/2020 6:16 PM EST 09/29/2020 6:35 PM EST [facility] E[facility] LAB BLOOD ORDERABLES Final Resul t SUNQUEST from Last 3 Months or Most Recently Relevant to Health Maintenance Insurance [employer] [place] [id number] Care Teams Material Carrier Relationship Specialty Start Date End Date Shaista Silva PA [address] [place] [address] PCP - General 02/25/25
[2025-03-14 09:47] LABS: Bilirubin,Urine Negative (Negative); Color,Urine YELLOW (Yellow); Glucose,Urine (UA) Negative (Negative); Ketones,Urine Negative (Negative); Leukocyte Esterase,Urine Negative (Negative); Microscopic, Urine URINE MICROSCOPIC (MICROSCOPIC); PH,Urine 7.0 (5.0-8.5); Protein,Urine Negative (Negative); Specific Gravity, Urine 1.020 (1.005-1.030); Urobilinogen,Urine 0.2 EU/dl (0.2)
[2025-03-14 09:50] VITALS: BP 121/82; PULSE 79; RESP 14; TEMP 36.9; O2SAT 100; BMI 29.2
--- NOTE | 2025-03-14 09:56 | CT_ITS ---
PROCEDURE INFORMATION: Exam: CT Abdomen And Pelvis With Contrast Exam date and time: 03/14/2025 11:00 AM Age: 29 years old Clinical indication: Abdominal pain; Additional info: Bilateral flank pain TECHNIQUE: Imaging protocol: Computed tomography of the abdomen and pelvis with contrast. Radiation optimization: All CT scans at this facility use at least one of these dose optimization techniques: automated exposure control; mA and/or kV adjustment per patient size (includes targeted exams where dose is matched to clinical indication); or iterative reconstruction. Contrast material: ISOVUE; Contrast volume: 75 ml; Contrast route: IV; COMPARISON: 1. CT ABDOMEN PELVIS W CON 09/11/2022 11:[address] ABDOMEN PELVIS W CON 11/29/2019 11:30 PM FINDINGS: Limitations: Patient arm positioning results in beam hardening artifact which mildly degrades image quality. Lungs: Included lung bases are clear. Liver: Stable subcentimeter hypodense lesion in the right hepatic lobe, too small to characterize, favored to be benign. Mild focal fat along the falciform ligament similar to prior. Gallbladder and biliary ducts: Gallbladder is normal. No calcified stones. No ductal dilatation. Pancreas: Pancreas is normal. No ductal dilatation. Spleen: Spleen is normal. Adrenal glands: Adrenal glands are normal. Kidneys and ureters: Kidneys are normal. No mass. No hydronephrosis. No stones are seen. Stomach and bowel: No evidence of bowel obstruction or acute bowel abnormality. Appendix: No evidence of appendicitis. Intraperitoneal space: No free air. Trace nonspecific low-density free fluid in the pelvis. Vasculature: No acute abnormality. No abdominal aortic aneurysm. Lymph nodes: No enlarged lymph nodes. Urinary bladder: Small focus of gas in the urinary bladder. Urinary bladder is otherwise unremarkable for degree of distension. Reproductive: Right adnexal 2 cm cystic lesion, no follow-up imaging indicated (Reference: [facility]cock). Otherwise, unremarkable as visualized. Bones/joints: No acute osseous abnormality. 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 Soft tissues: Small fat containing midline ventral hernia, less evident than prior. IMPRESSION: 1. Kidneys are unremarkable. No hydronephrosis. Small focus of gas in the urinary bladder which may be secondary to recent instrumentation, otherwise, cystitis would be a consideration. 2. Other incidental findings as above.
[2025-03-14 10:08] LABS: Bacteria,Urine 1+ /lpf; Mucus,Urine 2+ /lpf; WBC,Urine Occasional #/hpf (0-3)
[2025-03-14] MEDS: KETOROLAC 30MG/ML VIAL 30 MG IV (10:15)
[2025-03-14 10:16] LABS: Hematocrit 38.4 % (37.0-47.0); Hemoglobin 13.2 g/dL (12.2-16.2); Immature Granulocytes % 0.3 %; Mean Corpuscular HGB Conc 34.4 g/dL (31.8-35.4); Mean Corpuscular Hemoglobin 30.2 pg (27.0-31.2); Mean Corpuscular Volume 87.9 fl (81-99); Nucleated Red Blood Cells % 0 %; Platelet Count 305 K/mm3 (142-424); Red Blood Count 4.37 M/mm3 (4.20-5.40); Red Cell Distribution Width-SD 40.5 fL; White Blood Count 6.0 K/mm3 (4.8-10.8)
[2025-03-14 10:27] LABS: Albumin Level 4.7 g/dl (3.5-5.0); Chloride 106 mmol/L (98-107); Potassium 4.3 mmoL/L (3.5-5.1); Sodium 139 mmol/L (136-145)
[2025-03-14 10:30] LABS: Alanine Aminotransferase 21 U/L (12-78); Albumin/Globulin Ratio 1.6 (1.1-1.8); Alkaline Phosphatase 51 U/L (38-126); Aspartate Amino Transferase 30 U/L (14-36); Bilirubin,Total 0.6 mg/dl (0.2-1.3); Blood Urea Nitrogen 11 mg/dl (7-17); Calcium 9.1 mg/dl (8.4-10.2); Creatinine Clearance Estimated 151 mL/min (50-200); Creatinine,Serum 0.60 mg/dl (0.52-1.04); Estimated Glomerular Filt Rate 120 ml/min (>60); GFR (African American) 145 ML/MIN (>60); Globulin 3.0 g/dL (1.3-3.2); Glucose 79 mg/dl (74-100); Total Protein,Serum 7.7 g/dl (6.3-8.2)
[2025-03-14 10:30] LABS: HCG Qualitative, Serum Negative (Negative)
[2025-03-14 10:31] LABS: Anion Gap 10.3 mEq/L (5-15); Carbon Dioxide 27 mmol/L (22.0-30.0)
[2025-03-14] MEDS: IOPAMIDOL-370 (76%);100ML BOTTLE 75 ML IV (11:05)
[2025-03-14] MEDS: SODIUM CHLORIDE 0.9% 10ML SYR (RAD ONLY) 10 ML IV (11:05)
[2025-03-14 11:16] LABS: Hepatitis C Ab Qual. W/ RFX NEGATIVE (Negative)
--- NOTE | 2025-03-14 11:59 | PC.NURSE ---
I called radiology, they state the radiologist is currently reading the scan.
--- NOTE | 2025-03-14 12:16 | HMH.EDGENADL ---
Discharge Plan Disposition Patient Disposition: Home, Self-Care Condition: Good Prescriptions Prescriptions: No Action cefdinir 300 mg capsule 300 mg PO Q12H 10 Days Qty: 20 0RF estradiol [Estrace] 0.01 % (0.1 mg/gram) cream 1 appful vaginal DAILY 30 Days Qty: 42.5 2RF Rx Instructions: Use finger technique apply daily for 14 days and then 3 times weekly thereafter oxybutynin chloride 10 mg tablet extended release 24hr 10 mg PO DAILY 90 Days Qty: 90 0RF buspirone 5 mg tablet 15 mg PO BID Rx Instructions: Take 1 tablet by mouth twice daily Referrals Follow up/Referrals: Shaista Silva PA [Primary Care Provider, Medical] - See instructions Activity Restrictions/Add. Instructions Additional Instructions/Restrictions: PLease follow up with urology as we discussed. your urinalysis today was normal. Your CT scan today was normal. please return if any new or worsening symptoms. Clinical Impressions Clinical Impression: Dysuria Instructions Patient Instructions: DI for Urinary Tract Infection (UTI) Print Language Print Language: Greenlandic Discharge ED Provider: Mirza Hart Adult HPI General Chief complaint: Urogenital-Female Stated complaint: Back pain, Frequent urination/burning sensation Time Seen by Provider: 03/14/25 09:46 Mode of Arrival: Ambulatory Source of Information: Patient Description of Symptoms (Recalled from ER Triage Doc. by RN): pt reports mariaa flank pain that radiates up her back. urinary urgency,feels like shes not emptying. has been going on since September History of Present Illness HPI narrative: This is a 29-year-old female patient, who is presenting to the emergency department today for evaluation of dysuria. The patient has been following in the urology clinic with Dr. Arteaga for what seems to be developing chronic dysuria. He did perform cystoscopy at one point noted that she had significant urethritis. They have performed a urinalysis on multiple occasions that have not shown any evidence of urinary tract infection. She is underwent STD testing multiple times and these have been unremarkable as well. She is currently on oxybutynin for overactive bladder and uses Macrobid at times of sexual intercourse to prevent against urinary tract infection. she was most recently seen in the urgent care treatment center on 02/13/2025 and had a urinalysis showing no nitrates and no leukocyte esterase, but was still given cefdinir given how symptomatic she is and she did not have any improvement in her symptoms. She presents today complaining of dysuria with urinary urgency and frequency as well as bilateral flank pain. She is not experiencing any fevers at this time. Related Data Home Medications ?Medication ?Instructions ?Recorded ?Confirmed buspirone 5 mg tablet 15 mg PO BID 12/02/23 02/15/25 Previous Rx's ?Medication ?Instructions ?Recorded cefdinir 300 mg capsule 300 mg PO Q12H 10 days #20 caps 02/13/25 estradiol 0.01% (0.1 mg/gram) 1 appful vaginal DAILY 30 days 02/15/25 vaginal cream (Estrace) #42.5 grams oxybutynin chloride 10 mg 10 mg PO DAILY 90 days #90 tabs 02/15/25 tablet,extended release 24 hr Allergies Allergy/AdvReac Type Severity Reaction Status Date / Time No Known Allergies Allergy Verified 03/14/25 11:59 [facility] Disclaimer: The information contained in this section may have been updated after the patient was seen, as this information can be updated by other users. Medical History Colitis Depression Migraine Anxiety Surgical History No significant past surgical history Family History Family/Other No significant family history Social History Smoking Status: Current every day smoker tobacco type: e-cigarettes second hand exposure: No alcohol intake: never substance use type: denies use current occupational status: employed Travel in the last 8 weeks?: None household members: family housing: house caffeine: Yes Have you lived/traveled outside US in past 30 days?: No Contact w/someone who lives/traveled outside US past 30 days?: No Exposure to someone with infectious disease in past 14 days?: No Do you have a fever (greater than 100.4 F or 38 C)?: No Have you tested positive for COVID-19?: No Exposed to someone with COVID-19 in past 14 days?: No Do you have a sore throat?: No Do you have a cough?: No Do you have any weakness?: No Do you have any diarrhea?: No Are you experiencing any unusual bleeding?: No Do you have any muscle aches/pain?: Yes Do you have any abdominal pain?: No Are you experiencing loss of taste or smell?: No Other Medical History Have you received the Flu Vaccine for this season: No Have you received the Pneumonia Vaccine: No ROS Obtained: Yes Systems reviewed as appropriate & no additional complaints except as documented Physical Exam General General appearance: other (See MDM) Respiratory Respiratory exam: Present other (See MDM) Cardiovascular Cardiovascular exam: Present other (See MDM) Neurological Exam Neurological exam: Present other (See MDM) Medical Decision Making Medical Records Medical records reviewed: Yes I reviewed the patient's medical records. Screening: Per USPSTF and CDC recommendations, given the prevalence of disease in our region, it is our hospital?s policy to screen for HIV and viral Hepatitis for all patients aged 18 and over and those with ongoing risk factors. Sunny Inquiry Pt receiving controlled substance: No Sunny was queried for this patient: No Vital Signs: 03/14/25 09:50 03/14/25 12:51 Temperature 98.4 F 98.1 F Temperature Source Oral Pulse Rate 81 Pulse Rate [Right] 79 Respiratory Rate 14 15 Blood Pressure 132/67 Blood Pressure [Right Arm] 121/82 Blood Pressure Mean [Right Arm] 95 02 Sat by Pulse Oximetry 100 Oxygen Delivery Method Room Air Lab Data Lab Results 03/14/25 09:38: Urine Color Yellow, Urine Appearance Clear, Urine pH 7.0, Ur Specific [place] 1.020, Urine Protein Negative, Urine Glucose (UA) Negative, Urine Ketones Negative, Urine Blood Negative, Urine Nitrate Negative, Urine Bilirubin Negative, Urine Urobilinogen 0.2, Ur Leukocyte Esterase Negative, Urine RBC None, Urine WBC Occasional, Ur Squamous Epith Cells 3-5, Urine Bacteria 1+, Urine Mucus 2+ 03/14/25 10:07: WBC 6.0, RBC 4.37, Hgb 13.2, Hct 38.4, MCV 87.9, MCH 30.2, MCHC 34.4, RDW 12.5, Plt Count 305, MPV 9.6, Neut % (Auto) 62.6, Lymph % (Auto) 27.0, [place] % (Auto) 7.2, Eos % (Auto) 1.7, Baso % (Auto) 1.2, Neut # (Auto) 3.7, Lymph # (Auto) 1.6, [place] # (Auto) 0.4, Eos # (Auto) 0.1, Baso # (Auto) 0.1, Sodium 139, Potassium 4.3, Chloride 106, Carbon Dioxide 27, Anion Gap 10.3, BUN 11, Creatinine 0.60, Estimated Creat Clear 151, Estimated GFR 120, Est GFR ( Amer) 145, Glucose 79, Calcium 9.1, Total Bilirubin 0.6, AST 30, ALT 21, Alkaline Phosphatase 51, Total Protein 7.7, Albumin 4.7, Globulin 3.0, Albumin/Globulin Ratio 1.6, HCV Ab RADHA w/Rflx PCR Qn Negative, HIV Ag/Ab Combo Qual Negative 03/14/25 10:15: Serum HCG, Qual Negative 03/14/25 10:07 03/14/25 10:07 Orders (Tests/Meds): ED MEDICATIONS Discontinued Medications Generic Name Dose Route Start Last Admin Trade Name Calebq PRN Reason Stop Dose Admin Iopamidol 75 ml 03/14/25 11:04 03/14/25 11:05 Iopamidol-370 (76%);100ml Bottle IV 03/14/25 11:05 75 ml ONCE ONE Administration Ketorolac Tromethamine 30 mg 03/14/25 10:13 03/14/25 10:15 Ketorolac 30mg/Ml Vial IV 03/14/25 10:14 30 mg ONCE ONE Administration Sodium Chloride 10 ml 03/14/25 11:04 03/14/25 11:05 Sodium Chloride 0.9% 10ml Syr (Rad Only) IV 03/14/25 11:05 10 ml ONCE ONE Administration ORDERS Category Date Time Status CT abdomen pelvis w con Stat Cat Scan 03/14/25 09:56 Completed CBC w/Auto Diff [Complete Blood Count Auto Diff] Stat Lab 03/14/25 10:07 Completed CMP [Comprehensive Metabolic Panel] Stat Lab 03/14/25 10:07 Completed HCG Qualitative, Serum Stat Lab 03/14/25 10:15 Completed HIV Combo Stat Lab 03/14/25 10:07 Completed Hepatitis C Ab Qual. W/ RFX Stat Lab 03/14/25 10:07 Completed UA [Urinalysis and Microscopic] Stat Lab 03/14/25 09:38 Completed Medical Decision Narrative: In summary this is a 29-year-old female patient who is presenting to the emergency department today for evaluation of urinary urgency and frequency as well as dysuria and bilateral flank pain in the absence of fevers. Comorbidities include an overactive bladder for which she takes oxybutynin. She is following in the clinic with urology who is done a cystoscopy and found that she has urethral-itis, however recurrent urinalysis and STD testing have shown chaudhari negative results. She has had Macrobid as well as cefdinir without any relief of symptoms. On initial evaluation of the patient they were resting comfortably in no acute distress and nontoxic in appearance. They are hemodynamically stable, saturating well room air, and are neurologically intact. On physical examination of the patient her abdomen is soft and nontender to palpation. She does have bilateral flank tenderness to palpation. I have palpated the patient's lumbar spine and she has no midline spinal tenderness. She is afebrile on exam. I have performed a bladder scan and the patient has 0 mL of postvoid residual volume. Differential diagnosis includes cystitis, urethral-itis, pyelonephritis, , among others. I have a low suspicion for a spinal cord syndrome as the cause of her flank pain and urinary symptoms as she has no midline tenderness, no saddle anesthesia, no lower extremity radiculopathy, and a postvoid residual volume of 0 Workup was initiated with hematologic labs as well as a urinalysis and a CT scan of the abdomen and pelvis. Initial interventions included 30 mg of Toradol for pain. Labs were personally interpreted by me and demonstrate no acute findings. Urinalysis is completely normal. She has no evidence of acute kidney injury. No electrolyte derangements. No leukocytosis. CT scan of the abdomen and pelvis was personally turbid by me and I do not appreciate any evidence of ureterolith. Official radiology read is in agreement and states that there is no acute abnormalities in the abdomen or the pelvis, however they do state that there is a small foci of gas within the bladder that could be seen in the setting of urinary tract infection or recent instrumentation. Given that the patient's workup today is unrevealing for urinary tract infection I do not feel compelled to treat her with antibiotics especially given the fact that she has had a recent doses of multiple antibiotics without relief of symptoms. She does have a follow-up appointment coming up with the [facility] urology and I have strongly recommended that she keep this appointment for further workup of her symptoms. At this time all questions have been answered and all parties are agreeable with the decision to discharge home. Critical Care Critical Care Time Critical Care Time: No
[2025-03-14 12:51] VITALS: BP 132/67; PULSE 81; RESP 15; TEMP 36.7; O2SAT 99
== END 2025-03-14 12:52 | disposition home or self-care (01) ==
PROVIDERS: Emergency Provider Student in an Organized Health Care Education/Training Program; PCP Physician Assistant
DX: R10.9 Unspecified abdominal pain (principal); R30.0 Dysuria; N32.81 Overactive bladder; N39.3 Stress incontinence (female) (male); F17.200 Nicotine dependence, unspecified, uncomplicated
CPT/HCPCS: 74177; 80053; 81001; 84703; 85025; 86803; 87389; 96374; 99283; 99285; J1885; Q9967

== ENCOUNTER 2025-06-30 08:28 | Outpatient (CLI) | payer BC, SELFPAY | END 2025-06-30 23:59 | LOC: LAB.DROPOF 07-02 08:28 | PROVIDERS: PCP Physician Assistant; Visit Provider Student in an Organized Health Care Education/Training Program | DX: R39.9 Unspecified symptoms and signs involving the genitourinary system (principal) | CPT/HCPCS: 87086 ==

== ENCOUNTER 2025-07-02 12:23 | Emergency (ER) | payer BC, SELFPAY ==
[2025-07-02 12:29] VITALS: BP 122/79; PULSE 99; O2SAT 99
[2025-07-02 12:30] VITALS: BP 122/79; PULSE 100; RESP 16; TEMP 37.2; O2SAT 97; BMI 28.1
[2025-07-02 12:36] VITALS: BP 122/79; PULSE 100; RESP 18; O2SAT 99
--- OUTSIDE RECORDS SUMMARY | 2025-07-02 12:39 | XMS_ITS | Clinical Summary ---
Author Organization [facility] Address [address] [place] [address] Care Team Providers Care Guardian Family Member Name Role Phone Shaista Silva Primary Care Provider [phone] Allergies No known active allergies Medications busPIRone [...] more drinks on one occasion? Never 09/30/2020 [place] Depression Scale Answer Date Recorded [place] Depression Scale Total 8 05/18/2021 The thought [...] help finding or keeping work or a sary b? Not on file 05/08/2023 Disabilities Answer [...] Date Last Done Comments ANNUAL PHYSICAL 12/31/2019 Annual Gynecologic Pelvic and Breast Exam 08/08/2024 08/07/2023, 06/27/2021 INFLUENZA VACCINE 02/26/2025 05/13/2024, , 10/14/2015, Additional history exists TDAP/TD VACCINES (4 - [...] Reference Lab Report [facility] [address] [place] [address] or [phone] Kvng Fuller M.D., Electric Organ Inspector And Repairer PATIENT NAME [facility]. [id number] AGE SEX SSN CLIENT REF # [facility] 26 1995 F [id number] [address] REQUEST[address] [place] [address] DRISS JIMENEZ DATE COLLECTED DATE RECEIVED DATE [...] 51, 52, 56, 58, 59, 66, 68 MANAGER ADOBE: RAYA ERAZO (ASCP) CPT CODES: 62533, 10693 08/12/2023 10:11 AM EST [facility] ThinPrep Vial Cervix uteri structure / Unknown Collection / Unknown 08/07/2023 3:20 PM EST 08/07/2023 3:20 PM EST us Andrade Sary Jimenez SKILL TRAINING PROGRAM COORDINATOR PATHOLOGY/CYTOLOGY ORDERABLES Final Result [facility]
[address] [place] [address], [place] [phone] * PAP SMEAR SCANNED (06/27/2021) Driss Sary Jimenez APRN CHART REVIEW TABS Final Re sult Performing Organization Address City/[facility]/ZIP Co de Phone Number [facility]
[address] [place] [address], [place] [phone] * Obstetric Panel (09/30/2020 11:55 AM EST) Hepatitis B Surface Ag Negative Negative [facility] Hep C Virus Ab <0.1 0.0 - 0.9 s/co ratio [facility] Comment: Negative: < 0.8 Indeterminate: 0.8 - 0.9 Positive: > 0.9 The CDC recommends that a positive HCV antibody result be followed up with a HCV Nucleic Acid Amplification test (186920). RPR Non Reactive Non Reactive [facility] [...] 2:35 PM EST Performed at: 01 - [facility] [id number] Pharmacy Benefit Manager: Isaac Orellana PhD, Phone: [phone] Tylor Butterfield MD LAB BLOOD ORDERABLES Final Result [facility] [address] [place] [address], [facility] [address] [place] [address], from Last 3 Months or Most Recently Relevant to Health Maintenance [place] [address] [address] [place] [address] PPO Advance Directives * CPR (Attempt to Resuscitate) (Latest Code Status on File) Date Activated Date Inactivated Comments 05/14/2021 12:00 AM 05/16/2021 2:33 PM Question Answer Comments Code Status (Patient has no pulse and is not breathing): CPR (Attempt to Resuscitate) Medical Interventions (Patie nt has pulse or is breathing): Full Care Teams Guardian Family Member Relationship Specialty Start Date End Date Shaista Silva PA [address] [place] [address] PCP - General Physician Electron Beam Welding Machine Operator 04/26/25
--- OUTSIDE RECORDS SUMMARY | 2025-07-02 12:39 | XMS_ITS | Clinical Summary ---
Author Organization Healthcare Address [address] [place] [address] Care Team Providers Care Dormitory Keeper Name Role Phone Shaista Silva Primary Care Provider [phone] Social History Tobacco Use Types Packs/Day Years Used Date Smoking Tobacco: Never Assessed Comments Unknown Sex and Gender Information Value Date Recorded Sex Assigned at Not on file Legal Sex Female 7:42 PM EDT Gender Identity Not on file Sexual Orientation Not on file Plan of Treatment Upcoming Encounters Date Type Department Care Team ([facility] Contact Info) Description 08/25/2025 10:00 AM EST Office Visit Medical Office Building Obstetrics and Gynecology [address], [address] [place] [address] Tanner Santamaria MD [address] [place] [address] Health Maintenance Due Date Last Done Comments [facility]-Depression Screening 1995 [facility]-Hepatitis C Screening 1995 [facility]-Infant/Child/Adol SDOH Screenings 1995 HPV Vaccines (2 - 2-dose series) 07/26/2009 01/24/2009 [facility]- SDOH Screenings 2015 [facility]-Adult SDOH Screenings 2015 [id number] Vaccine ( season) 2025 07/10/2022, 04/12/2022 [facility]-Influenza Vaccine (#1) 03/29/202504/20, 10/14/2015, 05/05/2009, Additional history exists [facility]-Pap Smear 08/07/2026 08/07/2023 [facility]-DTaP,Tdap,and Td Vaccines (9 - Td or [...] or Most Recently Relevant to Health Maintenance Care Teams Dormitory Keeper Relationship Specialty Start Date End Date Shaista Silva PA [address] [place] [address] [facility] - General 02/25/25
--- OUTSIDE RECORDS SUMMARY | 2025-07-02 12:39 | XMS_ITS | Encounter Summary ---
Author Organization [facility] Address [address] [place] [address] Care Team Providers Care Surgical Nurse Practitioner Name Role Phone Ricardo Shaista ATWOOD Primary Care Provider [phone] Reason for Visit * Reason Comments Med Refill Encounter Details Date Type Department Care Team (Late st Contact Info) Description 10/15/2020 Refill [facility] [address] [facility] [address] [place] [address] Alivia Olsen, UNIFIED COMMUNICATIONS ARCHITECT First trimester Social History Tobacco Use Types [...] documented as of this encounter Care Teams Surgical Nurse Practitioner Relationship Specialty Start Date End Date Shaista Silva PA [address] [place] [address] PCP - General Physician Aligner Typewriter 04/26/25 documented as of this encounter
[2025-07-02 12:42] LABS: Microscopic, Urine URINE MICROSCOPIC (MICROSCOPIC)
[2025-07-02 12:43] LABS: Bilirubin,Urine Negative (Negative); Color,Urine YELLOW (Yellow); Glucose,Urine (UA) Negative (Negative); Ketones,Urine Negative (Negative); Leukocyte Esterase,Urine Negative (Negative); PH,Urine 8.0 (5.0-8.5); Protein,Urine Negative (Negative); Specific Gravity, Urine 1.020 (1.005-1.030); Urobilinogen,Urine 0.2 EU/dl (0.2)
--- NOTE | 2025-07-02 12:44 | ED_ITS ---
<Statement entered by Magdaleno Mcfarland MD - 07/03/25 15:37> I was consulted by the EREN, and we discussed the complexity of the problems being addressed. I approve the treatment and management plan for this patient's care in the emergency department, thus performing a substantive portion of the medical decision making. Magdaleno Mcfarland MD Discharge Plan Disposition Patient Disposition: Home, Self-Care Condition: Good Prescriptions Prescriptions: New amoxicillin-pot clavulanate 875-125 mg tablet 1 tab PO BID 5 Days Qty: 10 0RF No Action estradiol [Estrace] 0.01 % (0.1 mg/gram) cream 1 appful vaginal DAILY 30 Days Qty: 42.5 2RF Rx Instructions: Use finger technique apply daily for 14 days and then 3 times weekly thereafter oxybutynin chloride 10 mg tablet extended release 24hr 10 mg PO DAILY 90 Days Qty: 90 0RF desvenlafaxine succinate [Pristiq] 25 mg tablet extended release 24 hr 25 mg PO DAILY nitrofurantoin monohyd/m-cryst 100 mg capsule 100 mg PO Q12H 7 Days Qty: 14 0RF Rx Instructions: must administer with a meal/food phenazopyridine 100 mg tablet 100 mg PO TID PRN (Reason: pain) Qty: 6 0RF ondansetron 4 mg tablet,disintegrating 4 mg PO Q8H PRN (Reason: nausea and vomiting) Qty: 20 0RF Referrals Follow up/Referrals: Shaista Silva PA [Primary Care Provider, Medical] - See instructions Activity Restrictions/Add. Instructions Additional Instructions/Restrictions: Please return to the emergency department with any worsening signs or symptoms. Please take your new medication as prescribed. Please follow-up with urologist note, days/weeks. Please utilize antinausea medicine, antispasmodic medication as well as Tylenol and ibuprofen, as needed for symptomatic relief, do not take any additional ibuprofen today for symptoms. Clinical Impressions Clinical Impression: Pneumonia UTI (urinary tract infection) Qualifiers: Urinary tract infection type: site unspecified Hematuria presence: with hematuria Qualified Code(s): N39.0 - Urinary tract infection, site not specified Instructions Patient Instructions: DI for Atypical Pneumonia, DI for Urinary Tract Infection (UTI) Print Language Print Language: Barb[place] Discharge ED Provider: Magdaleno Mcfarland General Adult HPI General Chief complaint: PAIN Stated complaint: back pain, + for UTI Time Seen by Provider: 07/02/25 12:27 Mode of Arrival: Ambulatory Source of Information: Patient Description of Symptoms (Recalled from ER Triage Doc. by RN): Pt was seen @ urgent care on saturday and diagnosed with a UTI. Pt recieved Macrobid. Pt states she has had back pain that has gotten progressively worse since saturday and she state she is worried the UTI has gotten to her kidneys. Pt does have a h/o frequent UTI's and is supposed to see a urologist next week. History of Present Illness HPI narrative: 30-year-old female presents the emergency department with urinary frequency, hesitancy, dysuria, lower back pain and bilateral flank pain, for the last 3 to 4 days, patient was seen in urgent care treatment facility 2 days ago for similar symptomatology, had urinalysis performed that revealed nitrite positive urinary tract infection, was started on p.o. Macrobid has already taken 1 full day dosing of this medication, as well as p.o. phenazopyridine, which she does states she gets relief from, she has been utilizing ibuprofen with little to no relief of symptomatology, she admits to subjective chills denies any overt fevers, denies any chest pain shortness of breath, admits to nausea no vomiting, admits to constipation last bowel movement was yesterday, no diarrhea no hematuria no hematochezia hematemesis hemoptysis melena, patient denies any new sexual contacts, no risky sexual behaviors, no vaginal bleeding or no vaginal discharge, patient denies any other acute symptomatology, other past medical history is consistent with frequent UTIs, with ongoing workup for potential overactive bladder/incontinence, does have slated follow-up with urology specialist on Saturday of next week, has already seen urologist and has cystoscopy which was anything of. Other past medical history consistent with generalized anxiety disorder, prior section. Initial triage vitals are notable for tachycardia otherwise unremarkable. Please note that above description of symptoms, in this electronic medical record under categorization of recalled from ER triage doctor by RN are reflective of an initial nursing assessment, however, is not reflective of my full history and physical exam that was personally taken and clarified. Consequentially, this preceding description of symptoms, which may include the patient's categorized chief complaint in the EMR, do not reflect my personal clinical impression, and the ultimate description of history of present illness and patient stated complaints should be deferred to this section of the note. Unless stated otherwise or congruent with this section of the note, additional signs, symptoms, or incongruence should be interpreted as inaccurate with my clinical impression. Onset (ago): day(s) Related Data Home Medications ?Medication ?Instructions ?Recorded ?Confirmed desvenlafaxine succinate 25 mg 25 mg PO DAILY 06/30/25 06/30/25 tablet,extended release 24 hr (Pristiq) Previous Rx's ?Medication ?Instructions ?Recorded estradiol 0.01% (0.1 mg/gram) 1 appful vaginal DAILY 3 0 days 02/15/25 vaginal cream (Estrace) #42.5 grams oxybutynin chloride 10 mg 10 mg PO DAILY 90 days #90 t abs 02/15/25 tablet,extended release 24 hr nitrofurantoin 100 mg PO Q12H 7 days #14 ca ps 06/30/25 monohydrate/macrocrystals 100 mg capsule ondansetron 4 mg disintegrating 4 mg PO Q8H PRN nausea and 06/30/25 tablet vomiting #20 tabs phenazopyridine 100 mg tablet 100 mg PO TID PRN pain 6 doses #6 06/30/25 tabs amoxicillin 875 mg-potassium 1 tab PO BID 5 days #10 t abs 07/02/25 clavulanate 125 mg tablet Allergies Allergy/AdvReac Type Severity Reaction Status Date / Time No Known Allergies Allergy Verified 06/30/25 17:14 [facility] Disclaimer: The information contained in this section may have been updated after the patient was seen, as this information can be updated by other users. Medical History Colitis Depression Migraine Anxiety Surgical History No significant past surgical history Family History Family/Other No significant family history Social History Smoking Status: Never smoker second hand exposure: No alcohol intake: never substance use type: denies use current occupational status: employed Travel in the last 8 weeks?: None household members: family housing: house caffeine: Yes Have you lived/traveled outside [place] in past 30 days?: No Contact w/someone who lives/traveled outside [place] past 30 days?: No Exposure to someone with infectious disease in past 14 days?: No Do you have a fever (greater than 100.4 F or 38 C)?: No Have you tested positive for COVID-19?: No Exposed to someone with COVID-19 in past 14 days?: No Do you have a sore throat?: No Do you have a cough?: No Do you have any weakness?: No Do you have any diarrhea?: No Are you experiencing any unusual bleeding?: No Do you have any muscle aches/pain?: No Do you have any abdominal pain?: No Are you experiencing loss of taste or smell?: No Other Medical History Have you received the Flu Vaccine for this season: No Have you received the Pneumonia Vaccine: No ROS Obtained: Yes All systems reviewed & no additional complaints except as documented Physical Exam General General appearance: alert and in no apparent distress Head Head exam: atraumatic and normocephalic Eye Eye exam: Present PERRL and EOMI ENT ENT exam: Present mucous membranes moist Neck Neck exam: Present normal inspection Chest Chest inspection: Present normal inspection and symmetric chest wall rise Respiratory Respiratory exam: Present normal lung sounds bilaterally; Absent respiratory distress Cardiovascular Cardiovascular exam: Present regular rate and normal rhythm Abdominal Exam Abdominal exam: Present soft; Absent tenderness, guarding, rebound or rigidity Extremities Exam Extremities exam: Present normal inspection Back Exam Back exam: Present CVA tenderness (R) and CVA tenderness (L) Neurological Exam Neurological exam: Present alert and oriented X3 Psychiatric Psychiatric exam: Present normal affect Skin Skin exam: Present warm and dry Medical Decision Making Medical Records Medical records reviewed: Yes I reviewed the patient's medical records. Screening: Per USPSTF and CDC recommendations, given the prevalence of disease in our region, it is our hospital?s policy to screen for HIV and viral Hepatitis for all patients aged 18 and over and those with ongoing risk factors. Sunny Inquiry Pt receiving controlled substance: No Vital Signs: 07/02/25 12:29 07/02/25 12:30 07/02/25 12:36 Temperature 98.9 F Temperature Source Oral Pulse Rate 99 H 100 H Pulse Rate [Right] 100 H Respiratory Rate 16 18 Blood Pressure 122/79 122/79 Blood Pressure [Right Arm] 122/79 Blood Pressure Mean [Right Arm] 93 Blood Pressure Source Automatic Cuff Blood Pressure Source [Right Arm] Automatic Cuff Blood Pressure Position Sitting Blood Pressure Position [Right Arm] Sitting 02 Sat by Pulse Oximetry 99 97 99 Oxygen Delivery Method Room Air Room Air Room Air 07/02/25 13:01 07/02/25 13:30 Temperature Temperature Source Pulse Rate 88 88 Pulse Rate [Right] Respiratory Rate Blood Pressure 111/83 129/81 Blood Pressure [Right Arm] Blood Pressure Mean [Right Arm] Blood Pressure Source Blood Pressure Source [Right Arm] Blood Pressure Position Blood Pressure Position [Right Arm] 02 Sat by Pulse Oximetry 99 98 Oxygen Delivery Method Room Air Room Air Lab Data Lab results reviewed: Yes I reviewed the patient's lab results. Lab Results 07/02/25 12:29: Urine Color Yellow, Urine Appearance Clear, Urine pH 8.0, Ur Specific [place] 1.020, Urine Protein Negative, Urine Glucose (UA) Negative, Urine Ketones Negative, Urine Blood Negative, Urine Nitrate Negative, Urine Bilirubin Negative, Urine Urobilinogen 0.2, Ur Leukocyte Esterase Negative, Urine RBC None, Urine WBC None, Ur Squamous Epith Cells Occasional, Amorphous Sediment 1+, Urine Bacteria Trace, Urine Mucus Trace 07/02/25 13:05: WBC 5.2, RBC 4.09 L, Hgb 12.6, Hct 35.7 L, MCV 87.3, MCH 30.8, MCHC 35.3, RDW 12.1, Plt Count 269, MPV 9.5, Neut % (Auto) 67.0, Lymph % (Auto) 17.6, [place] % (Auto) 14.0 H, Eos % (Auto) 0.4, Baso % (Auto) 0.8, Neut # (Auto) 3.5, Lymph # (Auto) 0.9, [place] # (Auto) 0.7, Eos # (Auto) 0.0, Baso # (Auto) 0.0, Sodium 140, Potassium 4.0, Chloride 103, Carbon Dioxide 26, Anion Gap 15.0, BUN 10, Creatinine 0.70, Estimated Creat Clear 123, Estimated GFR 100, Est GFR ( Amer) 121, Glucose 87, Calcium 8.7, Total Bilirubin 0.4, AST 26, ALT 23, Alkaline Phosphatase 61, Total Protein 7.6, Albumin 4.4, Globulin 3.2, Albumin/Globulin Ratio 1.4, Lipase 73, Serum HCG, Qual Negative 07/02/25 13:05 07/02/25 13:05 Orders (Tests/Meds): ED MEDICATIONS Discontinued Medications Generic Name Dose Route Start Last Admin Trade Name Brittany PRN Reason Stop Dose Admin Iopamidol 75 ml 07/02/25 13:37 07/02/25 13:38 Iopamidol-370 (76%);100ml Bottle IV 07/02/25 13:38 75 ml ONCE ONE Administration Ketorolac Tromethamine 15 mg 07/02/25 12:53 07/02/25 13:13 Ketorolac 15mg/Ml Vial IV 07/02/25 12:54 15 mg ONCE ONE Administration Sodium Chloride 10 ml 07/02/25 13:37 07/02/25 13:38 Sodium Chloride 0.9% 10ml Syr (Rad Only) IV 07/02/25 13:38 10 ml ONCE ONE Administration ORDERS Category Date Time Status CT abdomen pelvis w con Stat Cat Scan 07/02/25 12:52 Taken Complete Blood Count Auto Diff Stat Lab 07/02/25 13:05 Completed Comprehensive Metabolic Panel Stat Lab 07/02/25 13:05 Completed HCG Qualitative, Serum Stat Lab 07/02/25 13:05 Completed Lactic Acid Stat Lab 07/02/25 12:53 Ordered Lipase Stat Lab 07/02/25 13:05 Completed Urinalysis and Microscopic Stat Lab 07/02/25 12:29 Completed Medical Decision Narrative: 30-year-old female presents emergency department with 3 to 4-day history of bilateral flank pain lower back pain urinary tract infection type symptomatology, was diagnosed urinary tract infection on p.o. antibiotic taking medication as prescribed, differential diagnose include but not limited to, acute UTI, acute cystitis, acute pyelonephritis, overactive bladder, nephrolithiasis, ureterolithiasis among others. I discussed this patient's case with the attending physician Dr. John I had a long discussion with the patient at bedside, stating that we will obtain urinalysis, however patient is already on p.o. antibiotic therapy at the appropriate dose has not had full 48 hours of antibiosis, patient would like to obtain imaging and other laboratory studies because she is worried about kidney stones , saying that this pain is different and higher than her normal urinary tract infection type pain thus will obtain basic laboratory studies, UA, hCG qualitative, lactic acid, lipase level, CT ab pelvis with contrast, will give 15 mg IV Toradol for pain. UA is notable for occasional squamous epithelial cells 1+ amorphous sediment trace bacteria and trace mucus negative hematuria negative nitrites. hCG qualitative negative CMP is unremarkable CBC is grossly unremarkable Reexamination the patient approximately 3:15 PM, patient states her pain has improved. I reviewed the patient's CT head and pelvis with contrast on the corresponding radiologic report, no acute abnormality of the abdomen or pelvis identified, new nodular opacity disease is present right lower lobe consistent with pneumonia. Of note, I discussed these results with the patient at bedside patient has had some cough congestion, chest congestion , for the last week, no overt shortness of breath or chest pain, because of incidental finding of right sided nodular opacity with findings consistent with possible pneumonia on patient CT abdomen pelvis with contrast, will treat the patient with Augmentin 875 mg p.o. twice daily for 5 days. Will stop the patient's Macrobid at this time, as Augmentin will cover for pathogens with pneumonia and urinary tract infection is unremarkable when compared to previous urinalysis performed 2 days ago at urgent care treatment similarly, culture results from urgent care facility showed no growth after 48 hours. Patient is given very strict ED return precautions, keep follow-up with urologist. Patient voiced understanding and agreement with current treatment plan/discharge plan. Critical Care Critical Care Time Critical Care Time: No
[2025-07-02 12:47] LABS: Squamous Epithelial Cell,Urine Occasional #/hpf (0-5)
[2025-07-02 12:48] LABS: Amorphous Sediment,Urine 1+ /lpf; Bacteria,Urine Trace /lpf; Mucus,Urine Trace /lpf
--- NOTE | 2025-07-02 12:52 | CT_ITS ---
FINAL REPORT TECHNIQUE: Thin section axial images are obtained through the abdomen and pelvis after intravenous contrast. Reconstruction images were obtained from the axial data. Exam was performed using dose reduction techniques. This study was performed with techniques to keep radiation doses as low as reasonably achievable (ALARA). Individualized dose reduction techniques using automated exposure control or adjustment of mA and/or kV according to the patient's size were employed. CLINICAL HISTORY: Bilateral flank pain, history of recent UTI COMPARISON: 03/14/2025 FINDINGS: LUNG BASES: There is new nodular airspace disease noted in the right lower lobe consistent with pneumonia. Heart size is normal. LIVER: Homogeneous. There is a hypodense lesion in the right lobe of the liver, stable. GALLBLADDER/BILIARY SYSTEM: Gallbladder is present. No gallstones. No biliary dilatation. SPLEEN: Unremarkable. PANCREAS: Unremarkable. ADRENALS: Unremarkable. KIDNEYS/URETERS/BLADDER: No hydronephrosis, renal mass, or renal stone. Unremarkable urinary bladder. GI TRACT: No small bowel obstruction or dilatation. Normal appendix. No acute colon abnormality. PELVIC ORGANS: Uterus is unremarkable for age. There is an involuting right ovarian corpus luteum cyst. LYMPH NODES/RETROPERITONEUM/MESENTERY: No lymphadenopathy. No abdominal aortic aneurysm. ABDOMINAL WALL: The abdominal wall is intact. FREE FLUID: Physiologic free fluid is present. BONES: No acute osseous abnormality. IMPRESSION: 1. No acute abnormality of the abdomen or pelvis is identified. 2. New nodular airspace disease is present in the right lower lobe consistent with pneumonia. Reviewed, Interpreted and Dictated by Karen Ramos MD Transcribed by Toshia Morris Authenticated and [facility]
[2025-07-02 13:01] VITALS: BP 111/83; PULSE 88; O2SAT 99
[2025-07-02] MEDS: KETOROLAC 15MG/ML VIAL 15 MG IV (13:13)
[2025-07-02 13:22] LABS: Hematocrit 35.7 % (37.0-47.0); Hemoglobin 12.6 g/dL (12.2-16.2); Immature Granulocytes % 0.2 %; Mean Corpuscular HGB Conc 35.3 g/dL (31.8-35.4); Mean Corpuscular Hemoglobin 30.8 pg (27.0-31.2); Mean Corpuscular Volume 87.3 fl (81-99); Nucleated Red Blood Cells % 0 %; Platelet Count 269 K/mm3 (142-424); Red Blood Count 4.09 M/mm3 (4.20-5.40); Red Cell Distribution Width-SD 39.3 fL; White Blood Count 5.2 K/mm3 (4.8-10.8)
[2025-07-02 13:24] LABS: Albumin Level 4.4 g/dl (3.5-5.0); Chloride 103 mmol/L (98-107)
[2025-07-02 13:25] LABS: Potassium 4.0 mmoL/L (3.5-5.1); Sodium 140 mmol/L (136-145)
[2025-07-02 13:27] LABS: Alanine Aminotransferase 23 U/L (12-78); Albumin/Globulin Ratio 1.4 (1.1-1.8); Alkaline Phosphatase 61 U/L (38-126); Anion Gap 15.0 mEq/L (5-15); Aspartate Amino Transferase 26 U/L (14-36); Bilirubin,Total 0.4 mg/dl (0.2-1.3); Blood Urea Nitrogen 10 mg/dl (7-17); Carbon Dioxide 26 mmol/L (22.0-30.0); Creatinine Clearance Estimated 123 mL/min (50-200); Creatinine,Serum 0.70 mg/dl (0.52-1.04); Estimated Glomerular Filt Rate 100 ml/min (>60); GFR (African American) 121 ML/MIN (>60); Globulin 3.2 g/dL (1.3-3.2); Lipase 73 U/L (23-300); Total Protein,Serum 7.6 g/dl (6.3-8.2)
[2025-07-02 13:28] LABS: Calcium 8.7 mg/dl (8.4-10.2); Glucose 87 mg/dl (74-100)
[2025-07-02 13:29] LABS: HCG Qualitative, Serum Negative (Negative)
[2025-07-02 13:30] VITALS: BP 129/81; PULSE 88; O2SAT 98
[2025-07-02] MEDS: IOPAMIDOL-370 (76%);100ML BOTTLE 75 ML IV (13:38)
[2025-07-02] MEDS: SODIUM CHLORIDE 0.9% 10ML SYR (RAD ONLY) 10 ML IV (13:38)
[2025-07-02 15:56] VITALS: BP 119/76; PULSE 83; RESP 18; TEMP 36.8; O2SAT 97
== END 2025-07-02 15:58 | disposition home or self-care (01) ==
PROVIDERS: Physician Assistant; Emergency Provider Student in an Organized Health Care Education/Training Program; PCP Physician Assistant
DX: J18.9 Pneumonia, unspecified organism (principal); N39.0 Urinary tract infection, site not specified; M54.50 Low back pain, unspecified; Z87.440 Personal history of urinary (tract) infections
CPT/HCPCS: 74177; 80053; 81001; 83690; 84703; 85025; 96374; 99284; 99285; J1885; Q9967